=== PATIENT | female | born 1955 | race Caucasian/White ===

== ENCOUNTER → 2017-06-03 | Outpatient (CLI) | payer OTHER ==
[2017-06-03 08:26] LABS: ABSOLUTE EOSINOPHILS # (AUTO) 0.2 10^3/uL (0.0-0.6); ABSOLUTE LYMPHOCYTES (AUTO) 3.3 10^3/uL (0.5-4.7); ABSOLUTE MONOCYTES (AUTO) 0.6 10^3/uL (0.1-1.4); ABSOLUTE NEUT (AUTO) 4.3 10^3/uL (1.7-8.2); BASOPHILS % (AUTO) 0.6 % (0-2); HEMATOCRIT 43.3 % (36.0-47.0); HEMOGLOBIN 14.4 g/dL (12.0-15.5); HGB HCT DIFFERENCE -0.1; LYMPHOCYTES % (AUTO) 39.5 % (13-45); MEAN CORPUSCULAR HEMOGLOBIN 31.5 pg (27.0-33.4); MEAN CORPUSCULAR HGB CONC 33.2 g/dL (32.0-36.0); MEAN CORPUSCULAR VOLUME 95 fl (80-97); MONOCYTES % (AUTO) 6.7 % (3-13); RED BLOOD COUNT 4.56 10^6/uL (3.72-5.28); RED CELL DISTRIBUTION WIDTH 14.2 % (11.5-14.0); SEGMENTED NEUTROPHILS % (AUTO) 51.2 % (42-78); WHITE BLOOD COUNT 8.4 10^3/uL (4.0-10.5)
[2017-06-03 08:55] LABS: ALANINE AMINOTRANSFERASE 25 U/L (9-52); ALBUMIN 3.9 g/dL (3.5-5.0); ALKALINE PHOSPHATASE 86 U/L (38-126); ANION GAP 8 (5-19); ASPARTATE AMINO TRANSFERASE 21 U/L (14-36); BILIRUBIN,DIRECT 0.3 mg/dL (0.0-0.4); BILIRUBIN,TOTAL 0.5 mg/dL (0.2-1.3); BLOOD UREA NITROGEN 12 mg/dL (7-20); CALCIUM 9.3 mg/dL (8.4-10.2); CARBON DIOXIDE 27 mmol/L (22-30); CHLORIDE 107 mmol/L (98-107); CHOLESTEROL 256.58 mg/dL (0-200); CREATININE RESULT 0.83 mg/dL (0.52-1.25); Direct HDL 39 mg/dL (>40); GLUCOSE 91 mg/dL (75-110); POTASSIUM 4.2 mmol/L (3.6-5.0); SODIUM 142.3 mmol/L (137-145); TOTAL PROTEIN 7.1 g/dL (6.3-8.2); TRIGLYCERIDES 186 mg/dL (<150)
[2017-06-03 09:06] LABS: DIRECT LDL 183 mg/dL (<100)
[2017-06-03 09:09] LABS: VLDL CHOLESTEROL 37.2 mg/dL (10-31)
== END ==
LOC: CCC 07:33
DX: E78.4 Other hyperlipidemia (principal); I10 Essential (primary) hypertension
CPT/HCPCS: 36415; 80053; 80061; 82306; 83036; 84443; 85025

== ENCOUNTER → 2018-01-09 | Outpatient (CLI) | payer OTHER ==
--- NOTE | 2018-01-09 10:56 | RADIOLOGY REPORT (SQ) ---
EXAM DESCRIPTION: CHEST PA/LAT COMPLETED DATE/TIME: 01/09/2018 9:56 am REASON FOR STUDY: DYSPNEA (R06.00) COMPARISON: None. EXAM PARAMETERS: NUMBER OF VIEWS: two views TECHNIQUE: Digital Frontal and Lateral radiographic views of the chest acquired. RADIATION DOSE: NA LIMITATIONS: none FINDINGS: LUNGS AND PLEURA: Patchy lingular airspace disease, worrisome for early or developing infi ltrate. No pleural effusion. No pneumothorax. No worrisome pulmonary nodules. MEDIASTINUM AND HILAR STRUCTURES: No masses or contour abnormalities. HEART AND VASCULAR STRUCTURES: Heart normal size. No evidence for failure. BONES: No acute findings. HARDWARE: None in the chest. OTHER: No other significant finding. IMPRESSION: Patchy lingular airspace disease worrisome for early or developing pneumonia TECHNICAL DOCUMENTATION: JOB ID: [id number] [employer]- All Rights Reserved Reading location - IP/workstation name: [email or web address]
== END ==
LOC: RAD 09:38
DX: R06.00 Dyspnea, unspecified (principal); J45.909 Unspecified asthma, uncomplicated
CPT/HCPCS: 71046

== ENCOUNTER → 2018-01-20 | Outpatient (CLI) | payer OTHER ==
--- NOTE | 2018-01-20 13:31 | RADIOLOGY REPORT (SQ) ---
EXAM DESCRIPTION: CHEST PA/LATERAL COMPLETED DATE/TIME: 01/20/2018 11:40 am REASON FOR STUDY: DYSPNEA COMPARISON: 01/09/2018 EXAM PARAMETERS: NUMBER OF VIEWS: two views TECHNIQUE: Digital Frontal and Lateral radiographic views of the chest acquired. RADIATION DOSE: NA LIMITATIONS: none FINDINGS: LUNGS AND PLEURA: There appears to be a small residual infiltrate in the lingula. There d oes appear to be improvement since the earlier study. MEDIASTINUM AND HILAR STRUCTURES: No masses or contour abnormalities. HEART AND VASCULAR STRUCTURES: Heart normal size. No evidence for failure. BONES: No acute findings. HARDWARE: None in the chest. OTHER: No other significant finding. IMPRESSION: Improved lingular infiltrate with small residual. TECHNICAL DOCUMENTATION: JOB ID: [id number] [employer]- All Rights Reserved Reading location - IP/workstation name: [email or web address]
== END ==
LOC: OD 11:25
DX: R06.00 Dyspnea, unspecified (principal)
CPT/HCPCS: 71046

== ENCOUNTER → 2018-03-29 | Outpatient (CLI) | payer OTHER ==
--- NOTE | 2018-03-29 16:26 | RADIOLOGY REPORT (SQ) ---
EXAM DESCRIPTION: CHEST 2 VIEWS COMPLETED DATE/TIME: 03/29/2018 3:40 pm REASON FOR STUDY: R06.00 DYSPNEA, UNSPECIFIED COMPARISON: 01/20/2018. EXAM PARAMETERS: NUMBER OF VIEWS: two views TECHNIQUE: Digital Frontal and Lateral radiographic views of the chest acquired. RADIATION DOSE: NA LIMITATIONS: none FINDINGS: LUNGS AND PLEURA: No opacities, masses or pneumothorax. No pleural effusion. MEDIASTINUM AND HILAR STRUCTURES: No masses or contour abnormalities. HEART AND VASCULAR STRUCTURES: Heart normal size. No evidence for failure. BONES: No acute findings. HARDWARE: None in the chest. OTHER: No other significant finding. IMPRESSION: NO ACUTE RADIOGRAPHIC FINDING IN THE CHEST. TECHNICAL DOCUMENTATION: JOB ID: [id number] [employer]- All Rights Reserved Reading location - IP/workstation name: [email or web address]
== END ==
LOC: RAD 15:25
DX: R06.00 Dyspnea, unspecified (principal)
CPT/HCPCS: 71046

== ENCOUNTER → 2018-05-04 | Outpatient (CLI) | payer OTHER ==
--- NOTE | 2018-05-04 09:48 | RADIOLOGY REPORT (SQ) ---
EXAM DESCRIPTION: BARIUM SWALLOW ESOPHAGUS COMPLETED DATE/TIME: 05/04/2018 9:29 am REASON FOR STUDY: COUGH/NOCTURNAL COUGHING ON MED FOR REFLUX R05 COUGH COMPARISON: Upper GI series 05/12/2016 Thyroid ultrasound 06/18/2016 CT soft tissue neck 07/26/2016 Two-view chest 03/29/2018 TECHNIQUE: Under fluoroscopic guidance, patient ingested effervescent granules followed by thick and thin barium. Fluoroscopic spot images and routine radiographic images acquired and stored on PACS. 12 MM BARIUM TABLET GIVEN: Yes No significant delay in passage. LIMITATIONS: None. FLUOROSCOPY TIME: FLUORO TIME: 1 minutes 36 seconds 9 series of digital radiographic images saved to PACS. FINDINGS: NEUROMUSCULAR COORDINATION OF SWALLOW: Normal. No aspiration. ESOPHAGEAL MOTILITY: Normal peristalsis. No esophageal spasm. ESOPHAGEAL MUCOSA: Normal mucosa without masses or ulceration. GASTRO-ESOPHAGEAL JUNCTION: There is a small sliding hiatal hernia. Unprovoked gastroesophageal refl ux to the mid 3rd of the esophagus NON-GI TRACT STRUCTURES: No significant finding. OTHER: No other significant finding. IMPRESSION: Small sliding hiatal hernia. Unprovoked gastroesophageal reflux. COMMENT: Quality ID [id number]: Final reports for procedures using fluoroscopy that document radiation exp osure indices, or exposure time and number of fluorographic images (if radiation exposure indices are not available) TECHNICAL DOCUMENTATION: JOB ID: [id number] [employer]- All Rights Reserved Reading location - IP/workstation name: [email or web address]
== END ==
LOC: RAD 08:52
PROVIDERS: ATTEND Internal Medicine
DX: R05 Cough (principal)
CPT/HCPCS: 74220

== ENCOUNTER → 2018-05-30 | Outpatient (CLI) | payer OTHER ==
[2018-06-01 21:35] LABS: M001-IGE PENICILLIUM CHRYSOGEN <0.10 kU/L (Class 0); M002-IGE CLADOSPORIUM HERBARUM <0.10 kU/L (Class 0); M003-IGE ASPERGILLUS FUMIGATUS <0.10 kU/L (Class 0); M004-IGE MUCOR RACEMOSUS <0.10 kU/L (Class 0); M005-IGE CANDIDA ALBICANS <0.10 kU/L (Class 0); M006-IGE ALTERNARIA ALTERNATA <0.10 kU/L (Class 0); M009-IGE FUSARIUM PROLIFERATUM <0.10 kU/L (Class 0); M012-IGE AUREOBASIDI PULLULANS <0.10 kU/L (Class 0); M013-IGE PHOMA BETAE <0.10 kU/L (Class 0); M014-IGE EPICOCCUM PURPURASCEN <0.10 kU/L (Class 0)
[2018-06-02 03:26] LABS: M010-IGE STEMPHYLIUM HERBARUM <0.10 kU/L (Class 0)
== END ==
LOC: CCC 12:55
DX: R05 Cough (principal)
CPT/HCPCS: 36415; 86003

== ENCOUNTER 2018-06-02 09:56 | Inpatient (IN) | payer OTHER ==
[2018-06-02] MEDS ORDERED: METHYLPREDNISOLONE INJ 125 MG/2 ML SDV IV ONE (10:14)
[2018-06-02] MEDS ORDERED: IPRATROPIUM/ALBUTEROL 0.5-2.5 MG/3 ML AMPUL NEB ONE (10:14)
[2018-06-02] MEDS ORDERED: ALBUTEROL SULFATE 0.083% NEB 2.5 MG/3 ML AMPUL NEB ONE ×2 (10:14→10:25)
--- NOTE | 2018-06-02 10:15 | ER Document Report ---
ED Medical Screen (RME) - General Chief Complaint: Breathing Difficulty Stated Complaint: BREATHING PROBLEMS Time Seen by Provider: 06/02/18 10:05 Mode of Arrival: Wheelchair Information source: Patient TRAVEL OUTSIDE OF THE [place] IN LAST 30 DAYS: No - HPI Patient complains to provider of: Difficulty breathing - Related Data Allergies/Adverse Reactions: No Known Allergies Allergy (Unverified 06/02/18 09:59) Physical Exam - Vital signs Vitals: Temp Pulse Resp BP Pulse Ox 98.2 F 75 22 H 148/83 H 89 L 06/02/18 10:07 06/02/18 10:07 06/02/18 10:07 06/02/18 10:07 06/02/18 10:07 Course - Vital Signs Vital signs: Temp Pulse Resp BP Pulse Ox 98.2 F 75 22 H 148/83 H 89 L 06/02/18 10:07 06/02/18 10:07 06/02/18 10:07 06/02/18 10:07 06/02/18 10:07 Doctor's Discharge - Discharge Referrals: [facility] [Primary Care Provider] - Follow up as needed
[2018-06-02] MEDS: MAGNESIUM SULFATE/D5W 1 GM/100 ML RTUPB IV SCH ×2 (10:20→10:44)
--- NOTE | 2018-06-02 10:28 | ER Document Report ---
ED General - General Chief Complaint: Breathing Difficulty Stated Complaint: BREATHING PROBLEMS Time Seen by Provider: 06/02/18 10:05 Mode of Arrival: Wheelchair Notes: 63-year-old female smoker with hyperlipidemia presents emergency department complaining of a two-month history of minimally productive cough that has been gettting progressively worse. Patient states she has taken multiple doses of antibiotics, had multiple chest x-rays and use multiple inhalers without any relief. States that she has a constant wheeze or rattle in her chest associated with pain in her chest from coughing. Denies fevers, chills, nausea or vomiting. States that she is decreasing her smoking. TRAVEL OUTSIDE OF THE [place] IN LAST 30 DAYS: No - Related Data Allergies/Adverse Reactions: No Known Allergies Allergy (Unverified 06/02/18 09:59) Past Medical History - General Information source: Patient - Social History Smoking Status: Current Every Day Smoker Cigarette use (# per day): Yes - 4-5 Chew tobacco use (# tins/day): No Frequency of alcohol use: None Drug Abuse: None Lives with: Spouse/Significant other Family History: COPD - Past Medical History Cardiac Medical History: Reports: Hx Hypercholesterolemia Review of Systems - Review of Systems Constitutional: See HPI, Weakness. denies: Diaphoresis, Fever EENT: No symptoms reported Cardiovascular: See HPI, Chest pain, Dyspnea Respiratory: See HPI, Cough, Short of breath -: Yes All other systems reviewed and negative Physical Exam - Vital signs Vitals: Temp Pulse Resp BP Pulse Ox 98.2 F 75 22 H 148/83 H 89 L 06/02/18 10:07 06/02/18 10:07 06/02/18 10:07 06/02/18 10:07 06/02/18 10:07 Interpretation: Hypoxic, Tachypneic - Notes Notes: GENERAL: Alert, interacts well. Appears uncomfortable. HEAD: Normocephalic, atraumatic EYES: Pupils equal, round and reactive to light, extraocular movements intact. ENT: Oral mucosa moist, tongue midline. NECK: Full range of motion, supple, trachea midline. LUNGS: Tachypnea, wheezing, appear short of breath, no cyanosis. HEART: Regular rate and rhythm, no murmurs, gallops, rubs. ABDOMEN: Soft, nontender, nondistended, bowel sounds present in all 4 quadrants. EXTREMITIES: Moves all 4 extremities spontaneously, no edema, radial and dorsalis pedis pulses 2/4 bilaterally. No cyanosis. NEUROLOGICAL: Alert and oriented x3, normal speech. PSYCH: Normal mood, normal affect. SKIN: Warm, Dry, normal turgor, no rashes or lesions noted. Course - Re-evaluation Re-evalutation: 06/02/18 15:07 CBC shows slight leukocytosis 11.0, there is an eosinophilia, venous blood gas grossly unremarkable, chemistries unremarkable, CK and CK-MB are both somewhat elevated but troponin is normal, proBNP is normal, urinalysis unremarkable, chest x-ray does not show any acute process. Patient has not had any relief in her shortness of breath with steroids or breathing treatments, CT angiogram of the chest shows groundglass opacities in the bilateral upper lobes as well as atelectatic changes in the right middle lobe and bilateral lower lobes. There is no evidence of pulmonary embolism. I am concerned for possible infection versus hemorrhage versus pulmonary edema. Pulmonary edema is felt to be unlikely because the proBNP is low. Patient will be discussed with Dr. Mirza for possible admission given her continued shortness of breath, wheezing and hypoxia. 06/02/18 15:08 Dr. Roxana campos accept the patient to his service, agrees with concern for multifocal pneumonia versus interstitial lung disease, agrees with patient placing on the IMCU. - Vital Signs Vital signs: Temp Pulse Resp BP Pulse Ox 98.2 F 75 17 118/51 L 94 06/02/18 10:07 06/02/18 10:07 06/02/18 14:00 06/02/18 11:01 06/02/18 14:00 - Laboratory Result Diagrams: 06/02/18 10:31 06/02/18 10:31 Laboratory results interpreted by me: 06/02/18 06/02/18 06/02/18 10:31 10:31 10:31 WBC 11.0 H Eosinophils % 6.9 H Absolute Eosinophils 0.8 H BUN 5 L Creatine Kinase 233 H CK-MB (CK-2) 4.80 H Discharge - Discharge Clinical Impression: Acute respiratory failure with hypoxia, Multifocal pneumonia Condition: Fair Disposition: ADMITTED INPATIENT Admitting Provider: Hospitalist - [facility] Admitted: IMCU Referrals: [facility] [NO LOCAL MD] - Follow up as needed
[2018-06-02 10:47] LABS: ABSOLUTE BASOPHILS # (AUTO) 0.1 10^3/uL (0.0-0.2); ABSOLUTE EOSINOPHILS # (AUTO) 0.8 10^3/uL (0.0-0.6); ABSOLUTE LYMPHOCYTES (AUTO) 2.1 10^3/uL (0.5-4.7); ABSOLUTE MONOCYTES (AUTO) 0.7 10^3/uL (0.1-1.4); ABSOLUTE NEUT (AUTO) 7.4 10^3/uL (1.7-8.2); BASOPHILS % (AUTO) 0.6 % (0-2); EOSINOPHILS % (AUTO) 6.9 % (0-6); HEMATOCRIT 43.8 % (36.0-47.0); HEMOGLOBIN 14.7 g/dL (12.0-15.5); LYMPHOCYTES % (AUTO) 19.1 % (13-45); MEAN CORPUSCULAR HEMOGLOBIN 31.9 pg (27.0-33.4); MEAN CORPUSCULAR HGB CONC 33.5 g/dL (32.0-36.0); MEAN CORPUSCULAR VOLUME 95 fl (80-97); MONOCYTES % (AUTO) 6.5 % (3-13); PLATELET COUNT 235 10^3/uL (150-450); RED CELL DISTRIBUTION WIDTH 13.8 % (11.5-14.0); SEGMENTED NEUTROPHILS % (AUTO) 66.9 % (42-78); TOTAL CELLS COUNTED % (AUTO) 100 %
[2018-06-02 11:05] LABS: VENOUS BLOOD BASE EXCESS 2.5 mmol/L; VENOUS BLOOD HCO3 28.2 mmol/L (20-32); VENOUS BLOOD PCO2 47.7 mmHg (35-63); VENOUS BLOOD PH 7.39 (7.30-7.42)
[2018-06-02 11:06] LABS: ALANINE AMINOTRANSFERASE 23 U/L (9-52); ALKALINE PHOSPHATASE 126 U/L (38-126); ANION GAP 10 (5-19); ASPARTATE AMINO TRANSFERASE 29 U/L (14-36); BILIRUBIN,DIRECT 0.3 mg/dL (0.0-0.4); BILIRUBIN,TOTAL 0.7 mg/dL (0.2-1.3); BLOOD UREA NITROGEN 5 mg/dL (7-20); CALCIUM 9.4 mg/dL (8.4-10.2); CARBON DIOXIDE 28 mmol/L (22-30); CHLORIDE 106 mmol/L (98-107); CREATINE KINASE 233 U/L (30-135); GLUCOSE 90 mg/dL (75-110); POTASSIUM 4.6 mmol/L (3.6-5.0); SODIUM 144.1 mmol/L (137-145); TOTAL PROTEIN 7.4 g/dL (6.3-8.2)
[2018-06-02 11:13] LABS: APPEARANCE,URINE CLEAR; BILIRUBIN,URINE NEGATIVE (NEGATIVE); COLOR,URINE STRAW; GLUCOSE, URINE NEGATIVE (NEGATIVE); KETONES,URINE NEGATIVE (NEGATIVE); LEUKOCYTE ESTERASE,URINE NEGATIVE (NEGATIVE); NITRITE,URINE NEGATIVE (NEGATIVE); PROTEIN,URINE NEGATIVE (NEGATIVE); URINE SPECIFIC GRAVITY 1.002; UROBILINOGEN,URINE NEGATIVE mg/dL (<2.0)
[2018-06-02 11:18] LABS: NT PRO BNP 79 pg/mL (5-900)
[2018-06-02] MEDS ORDERED: KETOROLAC TROMETHAMINE INJ/PF 30 MG/1 ML SDV IV ONE (11:18)
[2018-06-02 11:19] LABS: TROPONIN I < 0.012 ng/mL
[2018-06-02] MEDS ORDERED: LORAZEPAM 0.5 MG TABLET PO ONE (11:47)
--- NOTE | 2018-06-02 12:51 | RADIOLOGY REPORT (SQ) ---
EXAM DESCRIPTION: CHEST 2 VIEWS COMPLETED DATE/TIME: 06/02/2018 12:10 pm REASON FOR STUDY: sob COMPARISON: Two-view chest 03/29/2018, 01/20/2018, 01/09/2018 EXAM PARAMETERS: NUMBER OF VIEWS: two views TECHNIQUE: Digital Frontal and Lateral radiographic views of the chest acquired. RADIATION DOSE: NA LIMITATIONS: none FINDINGS: LUNGS AND PLEURA: No opacities, masses or pneumothorax. No pleural effusion. MEDIASTINUM AND HILAR STRUCTURES: No masses or contour abnormalities. HEART AND VASCULAR STRUCTURES: Heart normal size. No evidence for failure. BONES: No acute findings. HARDWARE: None in the chest. OTHER: No other significant finding. IMPRESSION: NO ACUTE RADIOGRAPHIC FINDING IN THE CHEST. TECHNICAL DOCUMENTATION: JOB ID: [id number] [employer]- All Rights Reserved Reading location - IP/workstation name: [email or web address]
--- NOTE | 2018-06-02 14:55 | RADIOLOGY REPORT (SQ) ---
EXAM DESCRIPTION: CTA CHEST COMPLETED DATE/TIME: 06/02/2018 2:30 pm REASON FOR STUDY: persistent wheeze, hypoxia COMPARISON: Chest x-ray 06/02/2018. TECHNIQUE: CT scan of the chest performed using helical scanning technique with dynamic intravenous contrast injection. Images reviewed with lung, soft tissue and bone windows. Reconstructed coronal and sagittal MPR images reviewed. Additional 3 dimensional post-processing performed to develop Maximal Intensity Projection images (AZ P). All images stored on PACS. All CT scanners at this facility use dose modulation, iterative reconstruction, and/or weight based d osing when appropriate to reduce radiation dose to as low as reasonably achievable (ALARA). [facility]: Dose Right [facility]: CareDose [facility]: Dose Right [facility]: Teradose 4D [facility]: [employer] CONTRAST TYPE AND DOSE: contrast/concentration: Isovue 370.00 mg/ml; Total Contrast Delivered: 81.0 ml; Total Saline Delivered: 80.0 ml Contrast bolus optimized for the pulmonary arteries. Not diagnostic for the aorta. RENAL FUNCTION: Creatinine 0.71 RADIATION DOSE: CT Rad equipment meets quality standard of care and radiation dose reduction techniq ues were employed. CTDIvol: 31.7 - 33.1 mGy. DLP: 1310 mGy-cm. . LIMITATIONS: There is motion artifact. FINDINGS: LUNGS AND PLEURA: Calcified granuloma noted at the posterior right upper lobe. There are bilateral patchy ground-glass opacities. Atelectatic changes are seen at the right middle lobe and b ilateral lower lobes. No pleural effusion or pneumothorax. AORTA AND GREAT VESSELS: No thoracic aortic aneurysm. Contrast bolus not optimized for the aorta. HEART: No pericardial effusion. No significant coronary artery calcifications. PULMONARY ARTERIES: No obvious emboli visualized in the main pulmonary arteries or the visualized seg mental branches. HILAR AND MEDIASTINAL STRUCTURES: Mildly enlarged right hilar lymph node measuring 1.4 cm in short ax is. Prevascular lymph node measuring 11 mm in short axis. Left hilar lymph node measuring 11 mm in short axis. HARDWARE: None in the chest. UPPER ABDOMEN: No significant findings. Limited exam. THYROID AND OTHER SOFT TISSUES: The visualized thyroid gland is unremarkable. BONES: Multilevel degenerative changes at the spine. 3D MIPS: Confirm above findings. IMPRESSION: 1. Study degraded by motion artifact. No definite CT evidence for pulmonary emboli. If clinical concern persists, evaluation with ventilation-perfusion scan or repeat CT angiogram chest c an be obtained when the patient will be able to cooperate with positioning. 2. Bilateral patchy ground-glass opacities, may be secondary to multifocal pneumonia, pulmonary edema or hemorrhage. Mild bibasilar atelectasis. 3. Mild mediastinal and hilar adenopathy. COMMENT: Quality ID # [id number]: Final reports with documentation of one or more dose reduction techniques (e.g., Automated exposure control, adjustment of the mA and/or kV according to patient size, use of iterative reconstruction technique) TECHNICAL DOCUMENTATION: JOB ID: [id number] [employer]- All Rights Reserved Reading location - IP/workstation name: [email or web address]
[2018-06-02] MEDS ORDERED: CEFEPIME 1 GM/D5W RTU 1 GM/50 ML RTUPB IV ONE (15:00)
[2018-06-02] MEDS ORDERED: LEVOFLOXACIN 750 MG/D5W RTU 750 MG/150 ML RTUPB IV ONE (15:00)
[2018-06-02 15:25] LABS: ARTERIAL BLOOD BASE EXCESS -0.8 mmol/L; ARTERIAL BLOOD FIO2 4L; ARTERIAL BLOOD H2CO3 1.21 mmol/L (1.05-1.35); ARTERIAL BLOOD O2 SATURATION 94.5 % (94-98); ARTERIAL BLOOD PCO2 40.3 mmHg (35-45); ARTERIAL BLOOD PH 7.39 (7.35-7.45); ARTERIAL BLOOD PO2 72.5 mmHg (80-100); ARTERIAL BLOOD TOTAL CO2 25.3 mmol/L (21-25)
[2018-06-02] MEDS ORDERED: NICOTINE 14 MG/24 HR PATCH.TD24 TD SCH (20:00)
[2018-06-02] MEDS ORDERED: NICOTINE 14 MG/24 HR PATCH.TD24 TD ONE (20:00)
[2018-06-03] MEDS ORDERED: AZITHROMYCIN INJ 500 MG VIAL IV PRN (00:23)
[2018-06-03] MEDS ORDERED: IPRATROPIUM/ALBUTEROL 0.5-2.5 MG/3 ML AMPUL NEB PRN (00:26)
[2018-06-03] MEDS ORDERED: ESCITALOPRAM OXALATE 10 MG TABLET PO ONE (00:45)
[2018-06-03] MEDS ORDERED: AZITHROMYCIN 500 MG in DEXTROSE 5%-WATER 250 ML IV ONE (01:00)
[2018-06-03] MEDS: IBUPROFEN 400 MG TABLET PO PRN ×2 (01:03→09:49)
[2018-06-03] MEDS: IPRATROPIUM/ALBUTEROL 0.5-2.5 MG/3 ML AMPUL NEB SCH ×4 (01:13→20:32)
[2018-06-03] MEDS ORDERED: AZITHROMYCIN INJ 500 MG VIAL IV ONE (01:15)
[2018-06-03] MEDS ORDERED: CEFTRIAXONE INJ 1000 MG VIAL ONE (01:16)
[2018-06-03] MEDS ORDERED: CEFTRIAXONE 2 GM/D5W RTU 2 GM/50 ML RTUPB IV ONE (01:30)
[2018-06-03] MEDS ORDERED: METHYLPREDNISOLONE INJ 40 MG/1 ML SDV IV SCH (07:45)
[2018-06-03] MEDS: ENOXAPARIN SODIUM INJ 40 MG/0.4 ML DISP.SYRIN SUBCUT SCH (09:40)
[2018-06-03] MEDS: GUAIFENESIN 600 MG TABLET.SA PO SCH ×2 (09:42→21:05)
[2018-06-03] MEDS: LANSOPRAZOLE 15 MG TAB.RAP.DR PO SCH (09:43)
[2018-06-03] MEDS: BENZONATATE 100 MG CAPSULE PO SCH ×2 (14:33→21:05)
[2018-06-03] MEDS: METHYLPREDNISOLONE INJ 125 MG/2 ML SDV IV SCH ×2 (14:35→21:04)
--- NOTE | 2018-06-03 15:51 | PDOC PROGRESS REPORT ---
Subjective Progress Note for:: 06/03/18 Subjective:: This is a 63 years old female patient presented with 2 months history of dry hacking cough, shortness of breath and wheezing. Her CT scan of the chest reported as bilateral patchy consolidation of groundglass appearance suspicious for multifocal pneumonia versus pulmonary edema. Patient has been started on Solu-Medrol, bronchodilator, supplemental oxygen, Zithromax and ceftriaxone. Reason For Visit: PNEUMONIA Physical Exam Vital Signs: Temp Pulse Resp BP Pulse Ox 98.0 F 93 18 126/77 H 96 06/03/18 12:03 06/03/18 13:00 06/03/18 13:00 06/03/18 12:03 06/03/18 12:03 Intake & Output 06/02/18 06/03/18 06/04/18 06:59 06:59 06:59 Intake Total 650 615 Output Total 500 Balance 150 615 Weight 107.6 kg Results Impressions: Chest X-Ray 06/02/18 10:13 IMPRESSION: NO ACUTE RADIOGRAPHIC FINDING IN THE CHEST. Chest/Abdomen CTA 06/02/18 13:16 IMPRESSION: 1. Study degraded by motion artifact. No definite CT evidence for pulmonary emboli. If clinical concern persists, evaluation with ventilation- perfusion scan or repeat CT angiogram chest can be obtained when the patient will be able to cooperate with positioning. 2. Bilateral patchy ground-glass opacities, may be secondary to multifocal pneumonia, pulmonary edema or hemorrhage. Mild bibasilar atelectasis. 3. Mild mediastinal and hilar adenopathy. Assessment & Plan - Diagnosis (1) Acute respiratory failure with hypoxia Is this a current diagnosis for this admission?: Yes Plan: 02 saturation was 89% at the ER. Patient has been on supplemental oxygen and as needed BiPAP. (2) Suspected pneumonia Is this a current diagnosis for this admission?: Yes Plan: CT scan of the chest reported as multifocal pneumonia versus pulmonary edema. Patient has been started empirically on Zithromax and ceftriaxone. (3) Reactive airway disease Qualifiers: Asthma severity: moderate Is this a current diagnosis for this admission?: Yes Plan: Clinically patient has audible and diffuse bilateral wheezing. Reactive airways consider based on her clinical finding. She has been on bronchodilator, Solu-Medrol and supplemental oxygen. (4) Hyperlipidemia Qualifiers: Hyperlipidemia type: unspecified Is this a current diagnosis for this admission?: Yes Plan: Continue her home medication. (5) Morbid obesity Is this a current diagnosis for this admission?: Yes Plan: Lifestyle modification advised.
[2018-06-03] MEDS: IPRATROPIUM/ALBUTEROL 0.5-2.5 MG/3 ML AMPUL NEB PRN (16:36)
[2018-06-03] MEDS ORDERED: DOXYCYCLINE HYCLATE INJ 100 MG VIAL IV PRN (20:09)
[2018-06-03] MEDS ORDERED: DOXYCYCLINE HYCLATE INJ 100 MG VIAL ONE (20:45)
[2018-06-03] MEDS: CEFTRIAXONE 2 GM/D5W RTU 2 GM/50 ML RTUPB IV SCH (21:03)
[2018-06-03] MEDS: CHOLECALCIFEROL (D3) 1,000 UNIT TABLET PO SCH (21:04)
[2018-06-03] MEDS: CALCIUM CARBONATE 250 MG/VITAMIN D3 125 UNIT TABLET PO SCH (21:04)
[2018-06-03] MEDS: ESCITALOPRAM OXALATE 10 MG TABLET PO SCH (21:05)
[2018-06-03] MEDS: ATORVASTATIN CALCIUM 40 MG TABLET PO SCH (21:05)
[2018-06-03] MEDS ORDERED: [UNRECOGNIZED DRUG - OTHER] PO SCH (22:00)
[2018-06-03] MEDS ORDERED: AZITHROMYCIN 500 MG in DEXTROSE 5%-WATER 250 ML IV SCH (22:00)
[2018-06-03] MEDS ORDERED: D3 PO SCH (22:00)
[2018-06-03] MEDS ORDERED: CALCIUM CARB PO SCH (22:00)
[2018-06-03] MEDS ORDERED: MAGNESIUM OXID PO SCH (22:00)
[2018-06-03] MEDS: DOXYCYCLINE HYCLATE 100 MG in DEXTROSE 5%-WATER 250 ML IV SCH (22:03)
[2018-06-04] MEDS: IPRATROPIUM/ALBUTEROL 0.5-2.5 MG/3 ML AMPUL NEB PRN (00:47)
[2018-06-04] MEDS: NORMAL SALINE 1000 ML 1,000 ML IV PRN ×2 (02:35→17:51)
[2018-06-04] MEDS: IPRATROPIUM/ALBUTEROL 0.5-2.5 MG/3 ML AMPUL NEB SCH ×4 (02:51→20:05)
[2018-06-04 05:05] LABS: ALANINE AMINOTRANSFERASE 26 U/L (9-52); ALBUMIN 3.5 g/dL (3.5-5.0); ALKALINE PHOSPHATASE 94 U/L (38-126); ANION GAP 10 (5-19); ASPARTATE AMINO TRANSFERASE 38 U/L (14-36); BILIRUBIN,DIRECT 0.2 mg/dL (0.0-0.4); BILIRUBIN,TOTAL 0.2 mg/dL (0.2-1.3); BLOOD UREA NITROGEN 11 mg/dL (7-20); CALCIUM 8.5 mg/dL (8.4-10.2); CARBON DIOXIDE 25 mmol/L (22-30); CHLORIDE 110 mmol/L (98-107); GLUCOSE 169 mg/dL (75-110); POTASSIUM 4.1 mmol/L (3.6-5.0); SODIUM 144.9 mmol/L (137-145); TOTAL PROTEIN 6.5 g/dL (6.3-8.2)
[2018-06-04 05:11] LABS: HEMOGLOBIN 12.8 g/dL (12.0-15.5); MEAN CORPUSCULAR HEMOGLOBIN 32.2 pg (27.0-33.4); MEAN CORPUSCULAR HGB CONC 33.6 g/dL (32.0-36.0); MEAN CORPUSCULAR VOLUME 96 fl (80-97); PLATELET COUNT 242 10^3/uL (150-450); RED BLOOD COUNT 3.96 10^6/uL (3.72-5.28); WHITE BLOOD COUNT 21.7 10^3/uL (4.0-10.5)
[2018-06-04] MEDS: METHYLPREDNISOLONE INJ 125 MG/2 ML SDV IV SCH ×3 (05:24→22:08)
[2018-06-04] MEDS: BENZONATATE 100 MG CAPSULE PO SCH ×3 (05:24→22:09)
[2018-06-04 05:33] LABS: ABSOLUTE LYMPHOCYTES# (MANUAL) 0.7 10^3/uL (0.5-4.7); ABSOLUTE MONOCYTES # (MANUAL) 0.2 10^3/uL (0.1-1.4); ABSOLUTE NEUTROPHILS# (MANUAL) 20.8 10^3/uL (1.7-8.2); BASOPHILS % (MANUAL) 0 % (0-2); EOSINOPHILS % (MANUAL) 0 % (0-6); LYMPHOCYTES % (MANUAL) 3 % (13-45); MONOCYTES % (MANUAL) 1 % (3-13); SEGMENTED NEUTROPHILS % (MAN) 96 % (42-78); TOTAL CELLS COUNTED 100
[2018-06-04 05:34] LABS: PLATELET COMMENT ADEQUATE; RBC MORPHOLOGY COMMENT NORMO-CYTIC/CHROMIC
[2018-06-04] MEDS: ENOXAPARIN SODIUM INJ 40 MG/0.4 ML DISP.SYRIN SUBCUT SCH (10:03)
[2018-06-04] MEDS: GUAIFENESIN 600 MG TABLET.SA PO SCH ×2 (10:04→22:10)
[2018-06-04] MEDS: LANSOPRAZOLE 15 MG TAB.RAP.DR PO SCH (10:04)
[2018-06-04] MEDS: NICOTINE 14 MG/24 HR PATCH.TD24 TD SCH (10:04)
[2018-06-04] MEDS: DOXYCYCLINE HYCLATE 100 MG in DEXTROSE 5%-WATER 250 ML IV SCH ×2 (10:09→22:10)
[2018-06-04] MEDS: GUAIFENESIN/CODEINE PHOS 100-10 MG/ 5 ML UDC PO PRN (13:24)
--- NOTE | 2018-06-04 17:13 | PDOC PROGRESS REPORT ---
Subjective Progress Note for:: 06/04/18 Subjective:: I seen patient resting in bed. She claims her condition is the same even though she has a restful night. She is being treated for reactive airway disease. And her CT scan shows bilateral patchy groundglass appearance suspicious for multifocal pneumonia versus pulmonary edema versus pulmonary hemorrhage. Patient is being treated with antibiotics empirically for pneumonia. She is also on bronchodilator, supplemental oxygen and high-dose Solu-Medrol. Reason For Visit: PNEUMONIA Physical Exam Vital Signs: Temp Pulse Resp BP Pulse Ox 98.1 F 96 15 145/76 H 94 06/04/18 15:52 06/04/18 15:52 06/04/18 15:52 06/04/18 15:52 06/04/18 15:52 Intake & Output 06/03/18 06/04/18 06/05/18 06:59 06:59 06:59 Intake Total 650 4282 150 Output Total 500 Balance 150 4282 150 Weight 107.6 kg 107.1 kg Results Laboratory Results: 06/04/18 04:36 06/04/18 04:36 06/04/18 06/04/18 06/04/18 04:36 04:36 04:36 WBC 21.7 H RBC 3.96 Hgb 12.8 Hct 38.0 MCV 96 MCH 32.2 MCHC 33.6 RDW 14.0 Plt Count 242 Seg Neutrophils % Not Reportable Lymphocytes % Not Reportable Monocytes % Not Reportable Eosinophils % Not Reportable Basophils % Not Reportable Absolute Neutrophils Not Reportable Absolute Lymphocytes Not Reportable Absolute Monocytes Not Reportable Absolute Eosinophils Not Reportable Absolute Basophils Not Reportable Sodium 144.9 Potassium 4.1 Chloride 110 H Carbon Dioxide 25 Anion Gap 10 BUN 11 Creatinine 0.60 Est GFR ( Amer) > 60 Est GFR (Non-Af Amer) > 60 Glucose 169 H Calcium 8.5 Total Bilirubin 0.2 AST 38 H ALT 26 Alkaline Phosphatase 94 Total Protein 6.5 Albumin 3.5 TSH 0.23 L Impressions: Chest X-Ray 06/02/18 10:13 IMPRESSION: NO ACUTE RADIOGRAPHIC FINDING IN THE CHEST. Chest/Abdomen CTA 06/02/18 13:16 IMPRESSION: 1. Study degraded by motion artifact. No definite CT evidence for pulmonary emboli. If clinical concern persists, evaluation with ventilation- perfusion scan or repeat CT angiogram chest can be obtained when the patient will be able to cooperate with positioning. 2. Bilateral patchy ground-glass opacities, may be secondary to multifocal pneumonia, pulmonary edema or hemorrhage. Mild bibasilar atelectasis. 3. Mild mediastinal and hilar adenopathy. Assessment & Plan - Diagnosis (1) Acute respiratory failure with hypoxia Is this a current diagnosis for this admission?: Yes Plan: Her O2 saturation is stable. (2) Suspected pneumonia Is this a current diagnosis for this admission?: Yes Plan: Continue ceftriaxone and Zithromax. (3) Reactive airway disease Qualifiers: Asthma severity: moderate Is this a current diagnosis for this admission?: Yes Plan: Continue Solu-Medrol, bronchodilator and supplemental oxygen. (4) Hyperlipidemia Qualifiers: Hyperlipidemia type: unspecified Is this a current diagnosis for this admission?: Yes Plan: Continue her home medication. (5) Morbid obesity Is this a current diagnosis for this admission?: Yes Plan: Lifestyle modification advised.
[2018-06-04] MEDS: CEFTRIAXONE 2 GM/D5W RTU 2 GM/50 ML RTUPB IV SCH (20:50)
[2018-06-04] MEDS: CHOLECALCIFEROL (D3) 1,000 UNIT TABLET PO SCH (22:09)
[2018-06-04] MEDS: CALCIUM CARBONATE 250 MG/VITAMIN D3 125 UNIT TABLET PO SCH (22:09)
[2018-06-04] MEDS: ESCITALOPRAM OXALATE 10 MG TABLET PO SCH (22:10)
[2018-06-04] MEDS: ATORVASTATIN CALCIUM 40 MG TABLET PO SCH (22:10)
[2018-06-05] MEDS: IPRATROPIUM/ALBUTEROL 0.5-2.5 MG/3 ML AMPUL NEB PRN (00:05)
[2018-06-05] MEDS: IPRATROPIUM/ALBUTEROL 0.5-2.5 MG/3 ML AMPUL NEB SCH ×4 (01:55→20:46)
[2018-06-05] MEDS: METHYLPREDNISOLONE INJ 125 MG/2 ML SDV IV SCH ×3 (05:51→22:15)
[2018-06-05] MEDS: BENZONATATE 100 MG CAPSULE PO SCH ×3 (05:51→22:16)
[2018-06-05] MEDS: GUAIFENESIN 600 MG TABLET.SA PO SCH ×2 (10:31→22:16)
[2018-06-05] MEDS: AMLODIPINE BESYLATE 10 MG TABLET PO SCH (10:31)
[2018-06-05] MEDS: LANSOPRAZOLE 15 MG TAB.RAP.DR PO SCH (10:31)
[2018-06-05] MEDS: NICOTINE 14 MG/24 HR PATCH.TD24 TD SCH (10:33)
[2018-06-05] MEDS: ENOXAPARIN SODIUM INJ 40 MG/0.4 ML DISP.SYRIN SUBCUT SCH (10:36)
[2018-06-05] MEDS: DOXYCYCLINE HYCLATE 100 MG in DEXTROSE 5%-WATER 250 ML IV SCH (10:38)
[2018-06-05] MEDS: GUAIFENESIN/CODEINE PHOS 100-10 MG/ 5 ML UDC PO PRN ×3 (14:10→22:36)
[2018-06-05] MEDS ORDERED: BISACODYL 5 MG TABEC PO PRN (14:19)
[2018-06-05] MEDS ORDERED: BISACODYL 5 MG TABEC PO ONE (14:30)
[2018-06-05] MEDS ORDERED: POLYETHYLENE GLYCOL 3350 POWDER 17 GM/1 PACKET PO ONE (15:00)
[2018-06-05] MEDS: AZITHROMYCIN 250 MG TABLET PO SCH (18:34)
--- NOTE | 2018-06-05 19:46 | PDOC PROGRESS REPORT ---
Subjective Progress Note for:: 06/05/18 Subjective:: Patient has been doing relatively better. Her shortness of breath is relatively subsided. On auscultation the wheezing is improving. Patient requests for physical therapy. Reason For Visit: PNEUMONIA Physical Exam Vital Signs: Temp Pulse Resp BP Pulse Ox 97.9 F 95 18 130/61 H 96 06/05/18 16:03 06/05/18 16:03 06/05/18 16:03 06/05/18 16:03 06/05/18 16:03 Intake & Output 06/04/18 06/05/18 06/06/18 06:59 06:59 06:59 Intake Total 4282 3100 1258 Balance 4282 3100 1258 Weight 107.1 kg Results Laboratory Results: 06/04/18 04:36 06/04/18 04:36 Impressions: Chest X-Ray 06/02/18 10:13 IMPRESSION: NO ACUTE RADIOGRAPHIC FINDING IN THE CHEST. Chest/Abdomen CTA 06/02/18 13:16 IMPRESSION: 1. Study degraded by motion artifact. No definite CT evidence for pulmonary emboli. If clinical concern persists, evaluation with ventilation- perfusion scan or repeat CT angiogram chest can be obtained when the patient will be able to cooperate with positioning. 2. Bilateral patchy ground-glass opacities, may be secondary to multifocal pneumonia, pulmonary edema or hemorrhage. Mild bibasilar atelectasis. 3. Mild mediastinal and hilar adenopathy. Assessment & Plan - Diagnosis (1) Acute respiratory failure with hypoxia Is this a current diagnosis for this admission?: Yes Plan: Continue current regimen (2) Suspected pneumonia Is this a current diagnosis for this admission?: Yes Plan: Continue current regimen. I will request CT scan of the chest check for resolution of the previous findings. (3) Reactive airway disease Qualifiers: Asthma severity: moderate Is this a current diagnosis for this admission?: Yes Plan: Continue Solu-Medrol, bronchodilator and supplemental oxygen. (4) Hyperlipidemia Qualifiers: Hyperlipidemia type: unspecified Is this a current diagnosis for this admission?: Yes Plan: Continue her home medication. (5) Morbid obesity Is this a current diagnosis for this admission?: Yes Plan: Lifestyle modification advised.
[2018-06-05] MEDS: CEFTRIAXONE 2 GM/D5W RTU 2 GM/50 ML RTUPB IV SCH (22:15)
[2018-06-05] MEDS: CHOLECALCIFEROL (D3) 1,000 UNIT TABLET PO SCH (22:15)
[2018-06-05] MEDS: ATORVASTATIN CALCIUM 40 MG TABLET PO SCH (22:16)
[2018-06-05] MEDS: CALCIUM CARBONATE 250 MG/VITAMIN D3 125 UNIT TABLET PO SCH (22:17)
[2018-06-05] MEDS: ESCITALOPRAM OXALATE 10 MG TABLET PO SCH (22:17)
[2018-06-06] MEDS: IPRATROPIUM/ALBUTEROL 0.5-2.5 MG/3 ML AMPUL NEB SCH ×4 (02:12→20:19)
[2018-06-06] MEDS: METHYLPREDNISOLONE INJ 125 MG/2 ML SDV IV SCH ×3 (05:25→21:35)
[2018-06-06] MEDS: BENZONATATE 100 MG CAPSULE PO SCH ×3 (05:26→21:36)
[2018-06-06 05:57] LABS: APPEARANCE,URINE CLEAR; BILIRUBIN,URINE NEGATIVE (NEGATIVE); COLOR,URINE YELLOW; GLUCOSE, URINE NEGATIVE (NEGATIVE); KETONES,URINE NEGATIVE (NEGATIVE); LEUKOCYTE ESTERASE,URINE NEGATIVE (NEGATIVE); NITRITE,URINE NEGATIVE (NEGATIVE); PROTEIN,URINE NEGATIVE (NEGATIVE); URINE SPECIFIC GRAVITY 1.021; UROBILINOGEN,URINE NEGATIVE mg/dL (<2.0)
[2018-06-06] MEDS: GUAIFENESIN/CODEINE PHOS 100-10 MG/ 5 ML UDC PO PRN ×2 (06:29→11:39)
[2018-06-06] MEDS: LANSOPRAZOLE 15 MG TAB.RAP.DR PO SCH (09:34)
[2018-06-06] MEDS: GUAIFENESIN 600 MG TABLET.SA PO SCH ×2 (09:35→21:36)
[2018-06-06] MEDS: NICOTINE 14 MG/24 HR PATCH.TD24 TD SCH (09:36)
[2018-06-06] MEDS: ENOXAPARIN SODIUM INJ 40 MG/0.4 ML DISP.SYRIN SUBCUT SCH (09:36)
[2018-06-06] MEDS: AMLODIPINE BESYLATE 10 MG TABLET PO SCH (09:46)
[2018-06-06] MEDS: POLYETHYLENE GLYCOL 3350 POWDER 17 GM/1 PACKET PO SCH (10:02)
[2018-06-06 10:24] LABS: ABSOLUTE LYMPHOCYTES (AUTO) 1.2 10^3/uL (0.5-4.7); ABSOLUTE MONOCYTES (AUTO) 0.5 10^3/uL (0.1-1.4); ABSOLUTE NEUT (AUTO) 13.7 10^3/uL (1.7-8.2); BASOPHILS % (AUTO) 0.2 % (0-2); HEMATOCRIT 40.2 % (36.0-47.0); HEMOGLOBIN 13.5 g/dL (12.0-15.5); LYMPHOCYTES % (AUTO) 7.7 % (13-45); MEAN CORPUSCULAR HGB CONC 33.5 g/dL (32.0-36.0); MEAN CORPUSCULAR VOLUME 95 fl (80-97); MONOCYTES % (AUTO) 3.2 % (3-13); PLATELET COUNT 279 10^3/uL (150-450); RED BLOOD COUNT 4.22 10^6/uL (3.72-5.28); RED CELL DISTRIBUTION WIDTH 14.2 % (11.5-14.0); SEGMENTED NEUTROPHILS % (AUTO) 88.9 % (42-78); TOTAL CELLS COUNTED % (AUTO) 100 %; WHITE BLOOD COUNT 15.4 10^3/uL (4.0-10.5)
[2018-06-06 10:35] LABS: ANION GAP 11 (5-19); BLOOD UREA NITROGEN 14 mg/dL (7-20); CARBON DIOXIDE 27 mmol/L (22-30); CHLORIDE 104 mmol/L (98-107); GLUCOSE 199 mg/dL (75-110); POTASSIUM 3.8 mmol/L (3.6-5.0); SODIUM 141.9 mmol/L (137-145)
--- NOTE | 2018-06-06 11:17 | RADIOLOGY REPORT (SQ) ---
EXAM DESCRIPTION: CT CHEST WITHOUT COMPLETED DATE/TIME: 06/06/2018 10:48 am REASON FOR STUDY: r/o PNA COMPARISON: 06/02/2018 TECHNIQUE: CT scan performed of the chest without intravenous contrast. Images reviewed with lung, soft tissue and bone windows. Reconstructed coronal and sagittal MPR images reviewed. All images st ored on PACS. All CT scanners at this facility use dose modulation, iterative reconstruction, and/or weight based d osing when appropriate to reduce radiation dose to as low as reasonably achievable (ALARA). [facility]: Dose Right [facility]: CareDose [facility]: Dose Right [facility]: Teradose 4D [facility]: [employer] RADIATION DOSE: CT Rad equipment meets quality standard of care and radiation dose reduction techniq ues were employed. CTDIvol: 17.3 mGy. DLP: 639 mGy-cm. mGy. LIMITATIONS: No technical limitations. FINDINGS: LUNGS AND PLEURA: Diffuse patchy ground-glass attenuation in both lungs for cysts and is s lightly more conspicuous in the upper lobes compared to the prior. No air bronchograms or focal cons olidation HILAR AND MEDIASTINAL STRUCTURES: No identified masses or abnormal nodes. No obvious aneurysm. HEART AND VASCULAR STRUCTURES: No aneurysm. No pericardial effusion. UPPER ABDOMEN: No significant findings. Limited exam. THYROID AND OTHER SOFT TISSUES: No masses. No adenopathy. BONES: No significant finding. HARDWARE: None in the chest. OTHER: No other significant findings. IMPRESSION: Persistent ground-glass attenuation in both lungs with differential as before. No focal areas of consolidation. TECHNICAL DOCUMENTATION: JOB ID: [id number] Quality ID # [id number]: Final reports with documentation of one or more dose reduction techniques (e.g., Au tomated exposure control, adjustment of the mA and/or kV according to patient size, use of iterative reconstruction technique) 2010 [employer]- All Rights Reserved Reading location - IP/workstation name: [email or web address]
[2018-06-06] MEDS: IPRATROPIUM/ALBUTEROL 0.5-2.5 MG/3 ML AMPUL NEB PRN (11:57)
--- NOTE | 2018-06-06 16:53 | PDOC PROGRESS REPORT ---
Subjective Progress Note for:: 06/06/18 Subjective:: This is 63 years old female patient admitted 4 days ago with chief complaint of shortness of previous which is worsening progressively for the last 2 months. Patient has been tried with several rounds of steroid and antibiotics as outpatient to no avail. Initial CT scan of the chest without contrast shows bilateral patchy airspace disease worrisome for multifocal pneumonia, pulmonary edema and pulmonary hemorrhage. Patient has been started empirically with doxycycline and ceftriaxone, high-dose Solu-Medrol 125 mg 3 times a day, DuoNeb every 4 hours supplemental oxygen and intermittent BiPAP. Despite all this treatment patient continues to wheeze and the repeat CT scan of the chest reported as no change from previous. Reason For Visit: PNEUMONIA Physical Exam Vital Signs: Temp Pulse Resp BP Pulse Ox 97.9 F 89 16 143/74 H 95 06/06/18 15:16 06/06/18 15:16 06/06/18 15:16 06/06/18 15:16 06/06/18 15:16 Intake & Output 06/05/18 06/06/18 06/07/18 06:59 06:59 06:59 Intake Total 3100 2252 237 Output Total 600 Balance 3100 1652 237 General appearance: PRESENT: no acute distress, well-developed, well-nourished Head exam: PRESENT: atraumatic, normocephalic Eye exam: PRESENT: conjunctiva pink, EOMI, PERRLA. ABSENT: scleral icterus Ear exam: PRESENT: normal external ear exam Mouth exam: PRESENT: moist, tongue midline Neck exam: ABSENT: carotid bruit, JVD, lymphadenopathy, thyromegaly Respiratory exam: PRESENT: wheezes - Bilateral diffuse wheezing. ABSENT: rales , rhonchi Cardiovascular exam: PRESENT: RRR. ABSENT: diastolic murmur, rubs, systolic murmur Pulses: PRESENT: normal dorsalis pedis pul Vascular exam: PRESENT: normal capillary refill GI/Abdominal exam: PRESENT: normal bowel sounds, soft. ABSENT: distended, guarding, mass, organolmegaly, rebound, tenderness Rectal exam: PRESENT: deferred Extremities exam: PRESENT: full ROM. ABSENT: calf tenderness, clubbing, pedal edema Neurological exam: PRESENT: alert, awake, oriented to person, oriented to place , oriented to time, oriented to situation. ABSENT: motor sensory deficit Psychiatric exam: PRESENT: appropriate affect, normal mood. ABSENT: homicidal ideation, suicidal ideation Skin exam: PRESENT: dry, intact, warm. ABSENT: cyanosis, rash Results Laboratory Results: 06/06/18 09:55 06/06/18 09:55 06/06/18 06/06/18 06/06/18 05:35 09:55 09:55 WBC 15.4 H RBC 4.22 Hgb 13.5 Hct 40.2 MCV 95 MCH 32.0 MCHC 33.5 RDW 14.2 H Plt Count 279 Seg Neutrophils % 88.9 H Lymphocytes % 7.7 L Monocytes % 3.2 Eosinophils % 0.0 Basophils % 0.2 Absolute Neutrophils 13.7 H Absolute Lymphocytes 1.2 Absolute Monocytes 0.5 Absolute Eosinophils 0.0 Absolute Basophils 0.0 Sodium 141.9 Potassium 3.8 Chloride 104 Carbon Dioxide 27 Anion Gap 11 BUN 14 Creatinine 0.57 Est GFR ( Amer) > 60 Est GFR (Non-Af Amer) > 60 Glucose 199 H Calcium 9.0 Urine Color YELLOW Urine Appearance CLEAR Urine pH 6.0 Ur Specific [place] 1.021 Urine Protein NEGATIVE Urine Glucose (UA) NEGATIVE Urine Ketones NEGATIVE Urine Blood NEGATIVE Urine Nitrite NEGATIVE Ur Leukocyte Esterase NEGATIVE Urine WBC (Auto) 1 Urine RBC (Auto) 1 Impressions: Chest X-Ray 06/02/18 10:13 IMPRESSION: NO ACUTE RADIOGRAPHIC FINDING IN THE CHEST. Chest/Abdomen CTA 06/02/18 13:16 IMPRESSION: 1. Study degraded by motion artifact. No definite CT evidence for pulmonary emboli. If clinical concern persists, evaluation with ventilation- perfusion scan or repeat CT angiogram chest can be obtained when the patient will be able to cooperate with positioning. 2. Bilateral patchy ground-glass opacities, may be secondary to multifocal pneumonia, pulmonary edema or hemorrhage. Mild bibasilar atelectasis. 3. Mild mediastinal and hilar adenopathy. Chest CT 06/06/18 00:00 IMPRESSION: Persistent ground-glass attenuation in both lungs with differential as before. No focal areas of consolidation. Assessment & Plan - Diagnosis (1) Acute respiratory failure with hypoxia Is this a current diagnosis for this admission?: Yes Plan: Improving (2) Suspected pneumonia Is this a current diagnosis for this admission?: Yes Plan: Continue current regimen. I will request CT scan of the chest check for resolution of the previous findings. (3) Reactive airway disease Qualifiers: Asthma severity: moderate Is this a current diagnosis for this admission?: Yes Plan: I tapered her Solu-Medrol from 125 mg 3 times a day to 60 mg 3 times a day. (4) Hyperlipidemia Qualifiers: Hyperlipidemia type: unspecified Is this a current diagnosis for this admission?: Yes Plan: Continue her home medication. (5) Morbid obesity Is this a current diagnosis for this admission?: Yes Plan: Lifestyle modification advised.
[2018-06-06] MEDS ORDERED: FUROSEMIDE INJ/PF 40 MG/4 ML SDV IV ONE (16:54)
[2018-06-06] MEDS: AZITHROMYCIN 250 MG TABLET PO SCH (17:41)
[2018-06-06] MEDS: CEFTRIAXONE 2 GM/D5W RTU 2 GM/50 ML RTUPB IV SCH (21:34)
[2018-06-06] MEDS: ESCITALOPRAM OXALATE 10 MG TABLET PO SCH (21:36)
[2018-06-06] MEDS: ATORVASTATIN CALCIUM 40 MG TABLET PO SCH (21:36)
[2018-06-06] MEDS: CHOLECALCIFEROL (D3) 1,000 UNIT TABLET PO SCH (21:36)
[2018-06-06] MEDS: CALCIUM CARBONATE 250 MG/VITAMIN D3 125 UNIT TABLET PO SCH (21:37)
[2018-06-06] MEDS: NORMAL SALINE IV SCH (22:02)
[2018-06-06] MEDS: VORICONAZOLE IV SCH (22:02)
[2018-06-07] MEDS: IPRATROPIUM/ALBUTEROL 0.5-2.5 MG/3 ML AMPUL NEB SCH ×4 (01:15→19:51)
[2018-06-07] MEDS: IBUPROFEN 400 MG TABLET PO PRN (03:38)
[2018-06-07] MEDS: BENZONATATE 100 MG CAPSULE PO SCH ×3 (05:34→22:38)
[2018-06-07] MEDS: METHYLPREDNISOLONE INJ 125 MG/2 ML SDV IV SCH ×2 (05:38→14:28)
[2018-06-07] MEDS: ENOXAPARIN SODIUM INJ 40 MG/0.4 ML DISP.SYRIN SUBCUT SCH (10:48)
[2018-06-07] MEDS: NICOTINE 14 MG/24 HR PATCH.TD24 TD SCH (10:48)
[2018-06-07] MEDS: VORICONAZOLE IV SCH ×2 (10:49→22:37)
[2018-06-07] MEDS: LANSOPRAZOLE 15 MG TAB.RAP.DR PO SCH (10:49)
[2018-06-07] MEDS: AMLODIPINE BESYLATE 10 MG TABLET PO SCH (10:49)
[2018-06-07] MEDS: NORMAL SALINE IV SCH ×2 (10:49→22:37)
[2018-06-07] MEDS: GUAIFENESIN 600 MG TABLET.SA PO SCH ×2 (10:49→22:38)
[2018-06-07] MEDS: POLYETHYLENE GLYCOL 3350 POWDER 17 GM/1 PACKET PO SCH (10:52)
[2018-06-07] MEDS: AZITHROMYCIN 250 MG TABLET PO SCH (17:34)
[2018-06-07] MEDS ORDERED: METHYLPREDNISOLONE INJ 125 MG/2 ML SDV IV SCH (18:22)
--- NOTE | 2018-06-07 18:28 | PDOC PROGRESS REPORT ---
Subjective Progress Note for:: 06/07/18 Subjective:: I seen patient propped up. She is awake alert oriented. She reports her breathing is getting better but clinically she states she has mild to moderate distress. I tapered her Solu-Medrol from 125-60 yesterday seen today to 40 mg every 8 hours. Patient has been started on voriconazole empirically. Repeat CT scan of the chest without contrast reported as no changes in the diffuse bilateral patchy airspace disease which appears groundglass. The differential includes multifocal pneumonia, pulmonary edema, pulmonary hemorrhage, interstitial lung disease and possible fungal pneumonia caused by aspergillosis or histoplasma. Reason For Visit: PNEUMONIA Physical Exam Vital Signs: Temp Pulse Resp BP Pulse Ox 98.4 F 73 18 138/71 H 92 06/07/18 07:46 06/07/18 14:08 06/07/18 14:08 06/07/18 07:46 06/07/18 14:08 Intake & Output 06/06/18 06/07/18 06/08/18 06:59 06:59 06:59 Intake Total 2302 1773 100 Output Total 600 Balance 1702 1773 100 Weight 107 kg General appearance: PRESENT: mild distress Head exam: PRESENT: atraumatic Mouth exam: PRESENT: moist Neck exam: ABSENT: carotid bruit, JVD, lymphadenopathy, thyromegaly Respiratory exam: PRESENT: wheezes Cardiovascular exam: PRESENT: RRR. ABSENT: diastolic murmur, rubs, systolic murmur Results Laboratory Results: 06/06/18 09:55 06/06/18 09:55 Impressions: Chest X-Ray 06/02/18 10:13 IMPRESSION: NO ACUTE RADIOGRAPHIC FINDING IN THE CHEST. Chest/Abdomen CTA 06/02/18 13:16 IMPRESSION: 1. Study degraded by motion artifact. No definite CT evidence for pulmonary emboli. If clinical concern persists, evaluation with ventilation- perfusion scan or repeat CT angiogram chest can be obtained when the patient will be able to cooperate with positioning. 2. Bilateral patchy ground-glass opacities, may be secondary to multifocal pneumonia, pulmonary edema or hemorrhage. Mild bibasilar atelectasis. 3. Mild mediastinal and hilar adenopathy. Chest CT 06/06/18 00:00 IMPRESSION: Persistent ground-glass attenuation in both lungs with differential as before. No focal areas of consolidation. Assessment & Plan - Diagnosis (1) Acute respiratory failure with hypoxia Is this a current diagnosis for this admission?: Yes Plan: Improving (2) Suspected pneumonia Is this a current diagnosis for this admission?: Yes Plan: Response for steroid, antibiotics which includes Zithromax and ceftriaxone is unsatisfactory. Patient started on voriconazole to cover possible fungal agents. (3) Reactive airway disease Qualifiers: Asthma severity: moderate Is this a current diagnosis for this admission?: Yes Plan: I tapered her Solu-Medrol from 125 mg 3 times a day to 60 mg 3 times a day. (4) Hyperlipidemia Qualifiers: Hyperlipidemia type: unspecified Is this a current diagnosis for this admission?: Yes Plan: Continue her home medication. (5) Morbid obesity Is this a current diagnosis for this admission?: Yes Plan: Lifestyle modification advised.
--- NOTE | 2018-06-07 18:34 | PDOC PROGRESS REPORT ---
Subjective Progress Note for:: 06/07/18 Subjective:: No significant event or acute complaints. Regardless of the repeat CT finding and leukocytosis patient has been doing well clinically. She is potential discharge in the coming 48 hours. Reason For Visit: PNEUMONIA Physical Exam Vital Signs: Temp Pulse Resp BP Pulse Ox 98.4 F 73 18 138/71 H 92 06/07/18 07:46 06/07/18 14:08 06/07/18 14:08 06/07/18 07:46 06/07/18 14:08 Intake & Output 06/06/18 06/07/18 06/08/18 06:59 06:59 06:59 Intake Total 2302 1773 100 Output Total 600 Balance 1702 1773 100 Weight 107 kg General appearance: PRESENT: no acute distress Eye exam: PRESENT: conjunctiva pink Mouth exam: PRESENT: moist Respiratory exam: PRESENT: crackles, rhonchi Cardiovascular exam: PRESENT: RRR. ABSENT: diastolic murmur, rubs, systolic murmur GI/Abdominal exam: PRESENT: normal bowel sounds, soft. ABSENT: distended, guarding, mass, organolmegaly, rebound, tenderness Neurological exam: PRESENT: alert, awake Psychiatric exam: PRESENT: normal mood Results Laboratory Results: 06/06/18 09:55 06/06/18 09:55 Impressions: Chest X-Ray 06/02/18 10:13 IMPRESSION: NO ACUTE RADIOGRAPHIC FINDING IN THE CHEST. Chest/Abdomen CTA 06/02/18 13:16 IMPRESSION: 1. Study degraded by motion artifact. No definite CT evidence for pulmonary emboli. If clinical concern persists, evaluation with ventilation- perfusion scan or repeat CT angiogram chest can be obtained when the patient will be able to cooperate with positioning. 2. Bilateral patchy ground-glass opacities, may be secondary to multifocal pneumonia, pulmonary edema or hemorrhage. Mild bibasilar atelectasis. 3. Mild mediastinal and hilar adenopathy. Chest CT 06/06/18 00:00 IMPRESSION: Persistent ground-glass attenuation in both lungs with differential as before. No focal areas of consolidation. Assessment & Plan - Diagnosis (1) Acute respiratory failure with hypoxia Is this a current diagnosis for this admission?: Yes Plan: Improving (2) Suspected pneumonia Is this a current diagnosis for this admission?: Yes Plan: Response for steroid, antibiotics which includes Zithromax and ceftriaxone is unsatisfactory. Patient started on voriconazole to cover possible fungal agents. (3) Reactive airway disease Qualifiers: Asthma severity: moderate Is this a current diagnosis for this admission?: Yes Plan: I tapered her Solu-Medrol from 125 mg 3 times a day to 60 mg 3 times a day. (4) Hyperlipidemia Qualifiers: Hyperlipidemia type: unspecified Is this a current diagnosis for this admission?: Yes Plan: Continue her home medication. (5) Morbid obesity Is this a current diagnosis for this admission?: Yes Plan: Lifestyle modification advised.
[2018-06-07] MEDS: METHYLPREDNISOLONE INJ 40 MG/1 ML SDV IV SCH (22:38)
[2018-06-07] MEDS: ATORVASTATIN CALCIUM 40 MG TABLET PO SCH (22:38)
[2018-06-07] MEDS: ESCITALOPRAM OXALATE 10 MG TABLET PO SCH (22:38)
[2018-06-07] MEDS: CHOLECALCIFEROL (D3) 1,000 UNIT TABLET PO SCH (22:39)
[2018-06-07] MEDS: CEFTRIAXONE 2 GM/D5W RTU 2 GM/50 ML RTUPB IV SCH (22:39)
[2018-06-07] MEDS: CALCIUM CARBONATE 250 MG/VITAMIN D3 125 UNIT TABLET PO SCH (22:43)
[2018-06-08] MEDS: IPRATROPIUM/ALBUTEROL 0.5-2.5 MG/3 ML AMPUL NEB SCH ×4 (01:39→20:03)
[2018-06-08] MEDS: BENZONATATE 100 MG CAPSULE PO SCH ×3 (05:26→21:53)
[2018-06-08] MEDS: METHYLPREDNISOLONE INJ 40 MG/1 ML SDV IV SCH ×3 (05:26→21:56)
[2018-06-08 05:32] LABS: ANION GAP 10 (5-19); BLOOD UREA NITROGEN 17 mg/dL (7-20); CALCIUM 8.7 mg/dL (8.4-10.2); CARBON DIOXIDE 31 mmol/L (22-30); CHLORIDE 101 mmol/L (98-107); GLUCOSE 192 mg/dL (75-110); HEMOGLOBIN 13.2 g/dL (12.0-15.5); MEAN CORPUSCULAR HGB CONC 32.9 g/dL (32.0-36.0); MEAN CORPUSCULAR VOLUME 94 fl (80-97); PLATELET COUNT 265 10^3/uL (150-450); POTASSIUM 3.9 mmol/L (3.6-5.0); RED BLOOD COUNT 4.24 10^6/uL (3.72-5.28); RED CELL DISTRIBUTION WIDTH 13.8 % (11.5-14.0); SODIUM 142.2 mmol/L (137-145); WHITE BLOOD COUNT 13.6 10^3/uL (4.0-10.5)
[2018-06-08 06:11] LABS: ABSOLUTE LYMPHOCYTES# (MANUAL) 2.2 10^3/uL (0.5-4.7); ABSOLUTE MONOCYTES # (MANUAL) 0.4 10^3/uL (0.1-1.4); ANISOCYTOSIS SLIGHT; BASOPHILS % (MANUAL) 0 % (0-2); EOSINOPHILS % (MANUAL) 0 % (0-6); LYMPHOCYTES % (MANUAL) 16 % (13-45); MONOCYTES % (MANUAL) 3 % (3-13); PLATELET CLUMPS PRESENT; PLATELET COMMENT ADEQUATE; PLATELET LARGE PRESENT; SCHISTOCYTES SLIGHT; SEGMENTED NEUTROPHILS % (MAN) 81 % (42-78); TOTAL CELLS COUNTED 100; TOXIC GRANULATION SLIGHT; TOXIC VACUOLATION PRESENT
[2018-06-08] MEDS: GUAIFENESIN 600 MG TABLET.SA PO SCH ×2 (09:36→21:52)
[2018-06-08] MEDS: AMLODIPINE BESYLATE 10 MG TABLET PO SCH (09:36)
[2018-06-08] MEDS: NICOTINE 14 MG/24 HR PATCH.TD24 TD SCH (09:36)
[2018-06-08] MEDS: POLYETHYLENE GLYCOL 3350 POWDER 17 GM/1 PACKET PO SCH (09:36)
[2018-06-08] MEDS: LANSOPRAZOLE 15 MG TAB.RAP.DR PO SCH (09:36)
[2018-06-08] MEDS: ENOXAPARIN SODIUM INJ 40 MG/0.4 ML DISP.SYRIN SUBCUT SCH (09:37)
[2018-06-08] MEDS: VORICONAZOLE IV SCH ×2 (09:42→22:50)
[2018-06-08] MEDS: NORMAL SALINE IV SCH ×2 (09:42→22:50)
--- NOTE | 2018-06-08 12:28 | Progress Note ---
Provider Note Provider Note: ID Consult Note Asked by Pharmacy to review patient's chart. Pt not seen or examined. Reviewed VS, labs, imaging reports, provider reports. Ms. Conte is a 63 year old female smoker with PMH including HLD and anxiety who , on 06/03, p/w 2 months progressive dry cough, dyspnea and wheezing w/o fever/chills or other constitutional complaints per ED note and H&P. Her sx failed to improve with various outpatient courses of antibiotics and inhalers. She was afebrile on admission , had O2 sat in ED 89%, diffuse wheezing b/l. CBC unremarkable except for mild eosinophilia. BNP not elevated. CTA w/o evidence of PE, instead read as showing patchy GGO in b/l upper lobes and some atelectatic changes in RML and b/l lower lobes, and some hilar and mediastinal LAD, no focal consolidation or air bronchograms. Pt was managed with high dose steroids, supplemental O2 / BiPAP, and also empiric antibiotic therapy for suspicion of multifocal pneumonia. BCx negative in 1 set, other set contaminated with Bacillus species. No sputum culture. Levaquin and cefepime given on 06/02, then continued on Rocephin/azithromycin from 06/03 to present. Pt continued to be afebrile. Continued have wheezing and not much change on repeat CT scan on 06/06 with diffuse ground glass opacities b/l. Voriconazole was added empirically on 06/06 for possible fungal pneumonia caused by aspergillosis or Histoplasma. Today is day 7 of total antibiotic therapy aimed at CAP (Levaquin, then Rocephin/azithromycin). Impression/Recommendations Duration of patient's sx (progressive dry cough, dyspnea and wheezing for 2 months rather than days) suggests a chronic pneumonia syndrome rather than an acute typical bacterial process, as would also be suggested by her history of having received multiple prior courses of antibiotics as an outaptient without improvement. As such, I doubt that azithromycin and Rocephin are adding much to her improvement. Recommend discontinuing azithromycin and Rocephin. Chronic pneumonia syndromes can be due to a wide variety of noninfectious ( autoimmune, hypersensitivity, drug-induced, neoplastic, idopathic) and infectious etiologies, including mycobacterial and fungal infections. There is also a wide differential for ground glass opacities on CT encompassing, again, several inflammatory or infiltrative lung disorders, noninfectious and infectious. Also recommend also discontinuing voriconazole considering that no fungal etiology has been identified, unless the patient is at high risk ( epidemiologically quite likely to have a fungal pneumonia, has clinical presentation compatible with such). Patients at risk for severe fungal pneumonias that require antifungal therapy are generally those with pre- existing structural lung disease and/or severe immunocompromise. Otherwise a more measured approach can usually be taken, awaiting diagnostic confirmation of an infection rather than empirically treating while workup is in process. It is worth bearing in mind that generally fungal pneumonias are not treated for short courses (days) but instead are usually in the range of 6 weeks to 6 months , depending on the etiology and the host. Further investigation and establishment of a diagnosis would be warranted before embarking on such a course. The lack of fever raises some doubt about infectious underlying etiology. The fact that the patient has a calcified nodule in the RUL might potentially reflect a calcified granuloma and could indicate prior exposure to a granulomatous disease, such as TB (risk factors?), although it does not usually present with this type of CT imaging pattern and usually would be accompanied by constitutional sx such as fevers, weight loss. Doubt TB would be likely. With apparent calcified granuloma, which is likely incidental, consider placing PPD or Quantiferon. Consider getting HIV test, since all adults should be screened and it would influence the differential diagnosis of her chest imaging findings, but I think it is worth bearing in mind the possibility that there are noninfectious etiologies to consider. Consider consulting Pulmonary for assistance in evaluating patient. Wilmer Lee MD [facility] Infectious Diseases pager [phone]
[2018-06-08] MEDS ORDERED: METHYLPREDNISOLONE INJ 40 MG/1 ML SDV IV SCH (13:43)
--- NOTE | 2018-06-08 15:11 | PDOC PROGRESS REPORT ---
Subjective Progress Note for:: 06/08/18 Subjective:: I seen patient propped up in bed chatting with his and friend. Patient has been showing steady progress and improvement the last 48 hours after she has been started on voriconazole. Reason For Visit: PNEUMONIA Physical Exam Vital Signs: Temp Pulse Resp BP Pulse Ox 97.9 F 79 16 138/68 H 92 06/08/18 11:49 06/08/18 14:00 06/08/18 13:53 06/08/18 11:49 06/08/18 13:53 Intake & Output 06/07/18 06/08/18 06/09/18 06:59 06:59 06:59 Intake Total 1773 3548 2136 Balance 1773 3548 2136 Weight 107 kg 108 kg General appearance: PRESENT: no acute distress, well-developed, well-nourished Head exam: PRESENT: atraumatic, normocephalic Eye exam: PRESENT: conjunctiva pink. ABSENT: scleral icterus Mouth exam: PRESENT: moist Neck exam: ABSENT: carotid bruit, JVD, lymphadenopathy, thyromegaly Respiratory exam: PRESENT: wheezes - Mild wheezing. ABSENT: rales, rhonchi Cardiovascular exam: PRESENT: RRR. ABSENT: diastolic murmur, rubs, systolic murmur Pulses: PRESENT: normal dorsalis pedis pul Vascular exam: PRESENT: normal capillary refill GI/Abdominal exam: PRESENT: normal bowel sounds, soft. ABSENT: distended, guarding, mass, organolmegaly, rebound, tenderness Rectal exam: PRESENT: deferred Extremities exam: PRESENT: full ROM. ABSENT: calf tenderness, clubbing, pedal edema Neurological exam: PRESENT: alert, awake, oriented to person, oriented to place , oriented to time, oriented to situation. ABSENT: motor sensory deficit Psychiatric exam: PRESENT: appropriate affect, normal mood. ABSENT: homicidal ideation, suicidal ideation Skin exam: PRESENT: dry, intact, warm. ABSENT: cyanosis, rash Results Laboratory Results: 06/08/18 04:49 06/08/18 04:49 06/08/18 06/08/18 04:49 04:49 WBC 13.6 H RBC 4.24 Hgb 13.2 Hct 40.0 MCV 94 MCH 31.0 MCHC 32.9 RDW 13.8 Plt Count 265 Seg Neutrophils % Not Reportable Lymphocytes % Not Reportable Monocytes % Not Reportable Eosinophils % Not Reportable Basophils % Not Reportable Absolute Neutrophils Not Reportable Absolute Lymphocytes Not Reportable Absolute Monocytes Not Reportable Absolute Eosinophils Not Reportable Absolute Basophils Not Reportable Sodium 142.2 Potassium 3.9 Chloride 101 Carbon Dioxide 31 H Anion Gap 10 BUN 17 Creatinine 0.68 Est GFR ( Amer) > 60 Est GFR (Non-Af Amer) > 60 Glucose 192 H Calcium 8.7 06/02/18 18:35 Blood Blood Culture - Final NO GROWTH IN 5 DAYS Impressions: Chest X-Ray 06/02/18 10:13 IMPRESSION: NO ACUTE RADIOGRAPHIC FINDING IN THE CHEST. Chest/Abdomen CTA 06/02/18 13:16 IMPRESSION: 1. Study degraded by motion artifact. No definite CT evidence for pulmonary emboli. If clinical concern persists, evaluation with ventilation- perfusion scan or repeat CT angiogram chest can be obtained when the patient will be able to cooperate with positioning. 2. Bilateral patchy ground-glass opacities, may be secondary to multifocal pneumonia, pulmonary edema or hemorrhage. Mild bibasilar atelectasis. 3. Mild mediastinal and hilar adenopathy. Chest CT 06/06/18 00:00 IMPRESSION: Persistent ground-glass attenuation in both lungs with differential as before. No focal areas of consolidation. Assessment & Plan - Diagnosis (1) Acute respiratory failure with hypoxia Is this a current diagnosis for this admission?: Yes Plan: Resolving (2) Suspected pneumonia Is this a current diagnosis for this admission?: Yes Plan: Patient is responding to voriconazole. (3) Reactive airway disease Qualifiers: Asthma severity: moderate Is this a current diagnosis for this admission?: Yes Plan: I tapered her Solu-Medrol from 125 mg 3 times a day to 60 mg 3 times a day. (4) Hyperlipidemia Qualifiers: Hyperlipidemia type: unspecified Is this a current diagnosis for this admission?: Yes Plan: Continue her home medication. (5) Morbid obesity Is this a current diagnosis for this admission?: Yes Plan: Lifestyle modification advised.
[2018-06-08] MEDS: AZITHROMYCIN 250 MG TABLET PO SCH (17:49)
[2018-06-08] MEDS: CHOLECALCIFEROL (D3) 1,000 UNIT TABLET PO SCH (21:51)
[2018-06-08] MEDS: CALCIUM CARBONATE 250 MG/VITAMIN D3 125 UNIT TABLET PO SCH (21:52)
[2018-06-08] MEDS: ESCITALOPRAM OXALATE 10 MG TABLET PO SCH (21:52)
[2018-06-08] MEDS: ATORVASTATIN CALCIUM 40 MG TABLET PO SCH (21:53)
[2018-06-08] MEDS: CEFTRIAXONE 2 GM/D5W RTU 2 GM/50 ML RTUPB IV SCH (21:59)
[2018-06-09] MEDS: IPRATROPIUM/ALBUTEROL 0.5-2.5 MG/3 ML AMPUL NEB SCH ×2 (01:46→08:17)
[2018-06-09] MEDS: METHYLPREDNISOLONE INJ 40 MG/1 ML SDV IV SCH (05:36)
[2018-06-09] MEDS: BENZONATATE 100 MG CAPSULE PO SCH (05:37)
[2018-06-09] MEDS: GUAIFENESIN 600 MG TABLET.SA PO SCH (09:10)
[2018-06-09] MEDS: LANSOPRAZOLE 15 MG TAB.RAP.DR PO SCH (09:10)
[2018-06-09] MEDS: NICOTINE 14 MG/24 HR PATCH.TD24 TD SCH (09:10)
[2018-06-09] MEDS: POLYETHYLENE GLYCOL 3350 POWDER 17 GM/1 PACKET PO SCH (09:11)
[2018-06-09] MEDS: ENOXAPARIN SODIUM INJ 40 MG/0.4 ML DISP.SYRIN SUBCUT SCH (09:12)
[2018-06-09] MEDS: AMLODIPINE BESYLATE 10 MG TABLET PO SCH (09:15)
[2018-06-09] MEDS: NORMAL SALINE IV SCH (10:00)
[2018-06-09] MEDS: VORICONAZOLE IV SCH (10:00)
[2018-06-09 10:33] VITALS: BP 120/62
--- NOTE | 2018-06-30 18:36 | PDOC DISCHARGE SUMMARY ---
General - Admit/Disc Date/PCP Admission Date/Primary Care Provider: 06/02/18 15:29 Discharge Date: 06/09/18 - Discharge Diagnosis (1) Acute respiratory failure with hypoxia Is this a current diagnosis for this admission?: Yes (2) Suspected pneumonia Is this a current diagnosis for this admission?: Yes (3) Reactive airway disease Is this a current diagnosis for this admission?: Yes (4) Hyperlipidemia Is this a current diagnosis for this admission?: Yes (5) Morbid obesity Is this a current diagnosis for this admission?: Yes - Additional Information Prescriptions: Amlodipine Besylate [Norvasc 10 mg Tablet] 10 mg PO DAILY #30 tablet Prednisone 40 mg PO DAILY #10 tablet Voriconazole [Vfend] 200 mg PO BID #10 tablet Home Medications: Atorvastatin Calcium [Lipitor 40 mg Tablet] 40 mg PO WSUPPER 06/02/18 Calcium Carb/Magnesium Oxid/D3 [Calcium Magnesium + D Tablet] 2 tab PO QHS 06/02 Cholecalciferol (Vitamin D3) [Vitamin D3 5000 unit Capsule] 5,000 unit PO QHS Escitalopram Oxalate [Lexapro] 5 mg PO QHS 06/02/18 Ipratropium/Albuterol Sulfate [Duoneb 3 ml Ampul] 3 ml NEB [id number] PRN 06/02/18 Linaclotide [Linzess] 290 mcg PO QHS 06/02/18 Omeprazole 20 mg PO DAILY 06/02/18 Amlodipine Besylate [Norvasc 10 mg Tablet] 10 mg PO DAILY #30 tablet 06/09/18 Prednisone 40 mg PO DAILY #10 tablet 06/09/18 Voriconazole [Vfend] 200 mg PO BID #10 tablet 06/09/18 History of Present Illness History of Present Illness: PRISCA ABREU is a 63 year old -vnsb-del female smoker with hyperlipidemia, morbid obesity,Hypertension and anxiety and depression presents emergency department complaining of a two-month history of minimally productive cough that has been gettting progressively worse. Patient states she has taken multiple doses of antibiotics, steroids and had multiple chest x-rays and use multiple inhalers without any relief. States that she has a constant wheeze or rattle in her chest associated with pain in her chest from coughing. Denies fevers, chills, nausea or vomiting. No fever, chills, chest pain, palpitation or diaphoresis. No nausea, vomiting, abdominal pain, diarrhea or urinary complaints. No dizziness, blurring of vision, syncope or any seizure activity. Hospital Course Hospital Course: This is a 63 years old female patient presented with 2 months history of dry hacking cough, shortness of breath and wheezing. Her CT scan of the chest reported as bilateral patchy consolidation of groundglass appearance suspicious for multifocal pneumonia versus pulmonary edema versus pulmonary hemorrhage. Patient had been with high does Solu-Medrol, bronchodilator, supplemental oxygen, Zithromax and ceftriaxone to no avail. Patient continued to wheeze. The repeat CT scan of the chest revealed the same findings which are mentioned above. I started her empirically on voriconazole and patient shows marked improvement in her shortness of breath and wheezing. This morning I evaluated the patient chest is clear her vital signs are within normal limits and her labs are stable. Patient is stable enough to be discharged. I will discharge her with Norvasc 10 mg p.o. daily, prednisone 40 mg p.o. daily for 5 days, and voriconazole 200 mg twice daily for 5 days. Patient advised to have follow-up with her primary care physician and if her condition is worse that she needs follow-up with mold presser. Physical Exam Vital Signs: Temp Pulse Resp BP Pulse Ox 98.8 F 70 20 143/76 H 90 L 06/09/18 08:04 06/09/18 08:17 06/09/18 08:17 06/09/18 08:04 06/09/18 08:17 Intake & Output 06/08/18 06/09/18 06/10/18 06:59 06:59 06:59 Intake Total 3548 3160 Balance 3548 3160 Weight 108 kg 105.9 kg Results Laboratory Results: 06/08/18 04:49 06/08/18 04:49 Impressions: Chest X-Ray 06/02/18 10:13 IMPRESSION: NO ACUTE RADIOGRAPHIC FINDING IN THE CHEST. Chest/Abdomen CTA 06/02/18 13:16 IMPRESSION: 1. Study degraded by motion artifact. No definite CT evidence for pulmonary emboli. If clinical concern persists, evaluation with ventilation- perfusion scan or repeat CT angiogram chest can be obtained when the patient will be able to cooperate with positioning. 2. Bilateral patchy ground-glass opacities, may be secondary to multifocal pneumonia, pulmonary edema or hemorrhage. Mild bibasilar atelectasis. 3. Mild mediastinal and hilar adenopathy. Chest CT 06/06/18 00:00 IMPRESSION: Persistent ground-glass attenuation in both lungs with differential as before. No focal areas of consolidation. Qualifiers - * PATIENT BEING DISCHARGED WITH ANY OF THE FOLLOWING DIAGNOSIS: No
== END 2018-06-09 11:10 | disposition home or self-care (01) | DRG 193 ==
LOC: ER 09:56 → EH 15:29 → 3W 17:39
PROVIDERS: ADMIT Internal Medicine; ATTEND Internal Medicine
PROC: 5A09357 Assistance with Respiratory Ventilation, Less than 24 Consecutive Hours, Continuous Positive Airway Pressure (ICD-10-PCS; 2018-06-03)
PROC: 3E0234Z Introduction of Serum, Toxoid and Vaccine into Muscle, Percutaneous Approach (ICD-10-PCS; 2018-06-03)
PROC: 5A09557 Assistance with Respiratory Ventilation, Greater than 96 Consecutive Hours, Continuous Positive Airway Pressure (ICD-10-PCS; principal; 2018-06-05)
DX: J18.9 Pneumonia, unspecified organism (principal); J96.01 Acute respiratory failure with hypoxia; Z68.41 Body mass index [BMI] 40.0-44.9, adult; J45.909 Unspecified asthma, uncomplicated; E78.5 Hyperlipidemia, unspecified; E66.01 Morbid (severe) obesity due to excess calories; Z87.891 Personal history of nicotine dependence; F41.9 Anxiety disorder, unspecified; F32.9 Major depressive disorder, single episode, unspecified; Z79.52 Long term (current) use of systemic steroids; Z79.899 Other long term (current) drug therapy
CPT/HCPCS: 36415; 71046; 71250; 71275; 80048; 80053; 81001; 82550; 82553; 82803; 83036; 83880; 84443; 84484; 85025; 87040; 87077; 94640; 94660; 96365; 96375; 99285; J0456; J0692; J0696; J1650; J1885; J1940; J1956; J2920; J2930; J3465; J3475; J3490; J7030; J7060; J7620

== ENCOUNTER 2018-07-10 13:25 | Emergency (ER) | payer OTHER ==
[2018-07-10 14:01] LABS: HEMATOCRIT 41.7 % (36.0-47.0); HEMOGLOBIN 14.4 g/dL (12.0-15.5); MEAN CORPUSCULAR HEMOGLOBIN 32.4 pg (27.0-33.4); MEAN CORPUSCULAR HGB CONC 34.4 g/dL (32.0-36.0); MEAN CORPUSCULAR VOLUME 94 fl (80-97); PLATELET COUNT 276 10^3/uL (150-450); RED BLOOD COUNT 4.43 10^6/uL (3.72-5.28); RED CELL DISTRIBUTION WIDTH 14.4 % (11.5-14.0); WHITE BLOOD COUNT 10.6 10^3/uL (4.0-10.5)
[2018-07-10 14:06] LABS: APPEARANCE,URINE CLEAR; BILIRUBIN,URINE NEGATIVE (NEGATIVE); COLOR,URINE STRAW; GLUCOSE, URINE NEGATIVE (NEGATIVE); KETONES,URINE NEGATIVE (NEGATIVE); LEUKOCYTE ESTERASE,URINE NEGATIVE (NEGATIVE); NITRITE,URINE NEGATIVE (NEGATIVE); PROTEIN,URINE NEGATIVE (NEGATIVE); URINE SPECIFIC GRAVITY 1.002; UROBILINOGEN,URINE NEGATIVE mg/dL (<2.0)
--- NOTE | 2018-07-10 14:13 | ER Document Report ---
ED General - General Mode of Arrival: Ambulatory Information source: Patient TRAVEL OUTSIDE OF THE [place] IN LAST 30 DAYS: Yes <ISRRAEL SHERMAN - Last Filed: 07/10/18 14:07> <ARIANNA JONES - Last Filed: 07/10/18 15:34> - General Chief Complaint: Arrhythmia Stated Complaint: CHEST PAIN Time Seen by Provider: 07/10/18 13:44 Notes: Patient is a 63 year old female presenting to the emergency department via EMS complaining of heart palpitations onset today. Patient states she felt like her heart was racing and she proceeded to call EMS. Upon EMS arrival, they found the patient to be in SVT with a rate of 190. EMS proceeded to give 6 mg of adenosine which converted the heart rate. Patient states she had similar episodes in the past which were contributed to anxiety and she was prescribed Lexapro. (ISRRAEL SHERMAN) - Related Data Allergies/Adverse Reactions: No Known Allergies Allergy (Unverified 06/02/18 09:59) Past Medical History - General Information source: Patient - Social History Smoking Status: Former Smoker Chew tobacco use (# tins/day): No Frequency of alcohol use: None Drug Abuse: None Family History: COPD Patient has suicidal ideation: No Patient has homicidal ideation: No - Past Medical History Cardiac Medical History: Reports: Hx Hypercholesterolemia GI Medical History: Reports: Hx Gastroesophageal Reflux Disease Past Surgical History: Reports: Hx Section, Other - Goiter removal from thyroid a few years ago. <ISRRAEL SHERMAN - Last Filed: 07/10/18 14:07> Review of Systems - Review of Systems Constitutional: No symptoms reported EENT: No symptoms reported Cardiovascular: See HPI, Palpitations, Heart racing Respiratory: No symptoms reported Gastrointestinal: No symptoms reported Genitourinary: No symptoms reported Female Genitourinary: No symptoms reported Musculoskeletal: No symptoms reported Skin: No symptoms reported Hematologic/Lymphatic: No symptoms reported Neurological/Psychological: No symptoms reported -: Yes All other systems reviewed and negative <ISRRAEL SHERMAN - Last Filed: 07/10/18 14:07> Physical Exam <ISRRAEL SHERMAN - Last Filed: 07/10/18 14:07> <ARIANNA JONES - Last Filed: 07/10/18 15:34> - Vital signs Vitals: Resp Pulse Ox 17 95 07/10/18 13:46 07/10/18 13:46 - Notes Notes: GENERAL: Alert, interacts well. No acute distress. HEAD: Normocephalic, atraumatic. EYES: Pupils equal, round, and reactive to light. Extraocular movements intact. ENT: Oral mucosa moist, tongue midline. NECK: Full range of motion. Supple. Trachea midline. LUNGS: Clear to auscultation bilaterally, no wheezes, rales, or rhonchi. No respiratory distress. HEART: Regular rate and rhythm. No murmurs, gallops, or rubs. ABDOMEN: Soft, obese. Non-tender. Non-distended. Bowel sounds present in all 4 quadrants. EXTREMITIES: Moves all 4 extremities spontaneously. NEUROLOGICAL: Alert and oriented x3. Normal speech. PSYCH: Normal affect, normal mood. SKIN: Warm, dry, normal turgor. No rashes or lesions noted. (ISRRAEL SHERMAN) Course - Laboratory Result Diagrams: 07/10/18 13:39 07/10/18 13:39 <ISRRAEL SHERMAN - Last Filed: 07/10/18 14:07> - Laboratory Result Diagrams: 07/10/18 13:39 07/10/18 13:39 - EKG Interpretation by Id EKG shows normal: Sinus rhythm, [place], Intervals, QRS Complexes, ST-T Waves Rate: Normal - 88 Rhythm: NSR P Waves: LAE <ARIANNA JONES - Last Filed: 07/10/18 15:34> - Vital Signs Vital signs: Temp Pulse Resp BP Pulse Ox 12 105/70 97 07/10/18 14:01 07/10/18 14:01 07/10/18 14:01 - Laboratory Laboratory results interpreted by ct: 07/10/18 07/10/18 13:39 13:39 WBC 10.6 H RDW 14.4 H Abs Lymphs (Manual) 4.9 H Sodium 146.4 H Chloride 109 H Discharge <ISRRAEL SHERMAN - Last Filed: 07/10/18 14:07> <ARIANNA JONES - Last Filed: 07/10/18 15:34> - Discharge Clinical Impression: Supraventricular tachycardia Condition: Stable Disposition: HOME, SELF-CARE Additional Instructions: Palpitations (Irregular/Rapid Heartrate): Irregular or rapid heartbeat is called "palpitation." To diagnose the cause of palpitation, we have to "catch it in the act" with an EKG. Paroxysmal Atrial Tachycardia (PAT)/also called Supraventricular Tachycardia(SVT): This abnormally rapid heartbeat is caused by a "short circuit " in the electrical system of the heart. It is not dangerous, unless other heart disease is present. These attacks of PAT may occur occasionally for years. Medication is available for treatment. Contact the physician at once if you develop persistent lightheadedness, shortness of breath, chest pain, or swelling of the ankles. 8 Follow-up with Dr. Choudhary the green feed attendant director of corporate responsibility, or a local primary care provider to manage your tachycardia if it continues to be a problem. RETURN TO THE EMERGENCY ROOM IF ANY NEW OR WORSENING SYMPTOMS. Annitaibe Attestation: 07/10/18 14:45 I personally performed the services described in the documentation, reviewed and edited the documentation which was dictated to the scribe in my presence, and it accurately records my words and actions. (ARIANNA JONES) Scribe Documentation - Scribe Written by Raquel:: Raquel Gan, 07/10/2018 14:13 acting as scribe for :: Chata <ISRRAEL SHERMAN - Last Filed: 07/10/18 14:07>
[2018-07-10 14:21] LABS: ALANINE AMINOTRANSFERASE 29 U/L (9-52); ALBUMIN 3.6 g/dL (3.5-5.0); ALKALINE PHOSPHATASE 105 U/L (38-126); ANION GAP 12 (5-19); ASPARTATE AMINO TRANSFERASE 25 U/L (14-36); BILIRUBIN,DIRECT 0.3 mg/dL (0.0-0.4); BILIRUBIN,TOTAL 0.4 mg/dL (0.2-1.3); BLOOD UREA NITROGEN 8 mg/dL (7-20); CARBON DIOXIDE 25 mmol/L (22-30); CHLORIDE 109 mmol/L (98-107); CREATINE KINASE 52 U/L (30-135); GLUCOSE 99 mg/dL (75-110); POTASSIUM 4.5 mmol/L (3.6-5.0); SODIUM 146.4 mmol/L (137-145); TOTAL PROTEIN 6.5 g/dL (6.3-8.2)
[2018-07-10 14:28] LABS: ABSOLUTE LYMPHOCYTES# (MANUAL) 4.9 10^3/uL (0.5-4.7); ABSOLUTE MONOCYTES # (MANUAL) 0.8 10^3/uL (0.1-1.4); ABSOLUTE NEUTROPHILS# (MANUAL) 4.9 10^3/uL (1.7-8.2); BASOPHILS % (MANUAL) 0 % (0-2); EOSINOPHILS % (MANUAL) 0 % (0-6); LYMPHOCYTES % (MANUAL) 43 % (13-45); MONOCYTES % (MANUAL) 8 % (3-13); SEGMENTED NEUTROPHILS % (MAN) 46 % (42-78); TOTAL CELLS COUNTED 100
[2018-07-10 14:29] LABS: ANISOCYTOSIS SLIGHT; PLATELET COMMENT ADEQUATE
[2018-07-10 14:33] LABS: CREATINE KINASE MB 0.61 ng/mL (<4.55)
[2018-07-10 14:36] LABS: FREE T3 4.11 pg/mL (2.77-5.27); FREE T4 (FREE THYROXINE) 1.13 ng/dL (0.78-2.19); TROPONIN I < 0.012 ng/mL
[2018-07-10 14:50] LABS: THYROID STIMULATING HORMONE 2.67 uIU/mL (0.47-4.68)
[2018-07-10 16:12] VITALS: BP 115/71
--- NOTE | 2018-07-10 19:26 | EKG REPORT ---
SEVERITY:- BORDERLINE ECG - SINUS RHYTHM PROBABLE LEFT ATRIAL ABNORMALITY : Confirmed by: Gael Bennett MD 10-Jul-2018 19:26:14
== END 2018-07-10 16:20 | disposition home or self-care (01) ==
LOC: ER 13:25
DX: I47.1 Supraventricular tachycardia (principal); R07.9 Chest pain, unspecified; R00.2 Palpitations; E78.00 Pure hypercholesterolemia, unspecified; Z87.891 Personal history of nicotine dependence
CPT/HCPCS: 36415; 80053; 81001; 82550; 82553; 83735; 84439; 84443; 84481; 84484; 85025; 93005; 93010; 99285

== ENCOUNTER 2018-07-25 02:34 | Emergency (ER) | payer OTHER ==
[2018-07-25] MEDS ORDERED: ASPIRIN 81 MG TABLET, CHEWABLE PO ONE (02:40)
--- NOTE | 2018-07-25 02:45 | ER Document Report ---
ED General - General Chief Complaint: Irregular Pulse Stated Complaint: FAST HEART RATE Time Seen by Provider: 07/25/18 02:44 Information source: Patient Notes: Patient is a 63-year-old female with SVT that presents to the emergency department for chief complaint of SVT. Patient was brought to the emergency department by EMS, she was given 6 mg of IV push adenosine, which did convert her to sinus rhythm. Patient states that she had an episode similar to this 2 weeks ago, was monitored in the emergency department and discharged home. She is scheduled to see her primary care physician on 07/25/2018, for follow-up, and to be referred to a ingot supervisor. She states she was in the hospital not too long ago, for a fungal respiratory infection, and is on multiple antibiotics, antifungal agents, but she denies of any shortness of breath or cough at this time. She denies having any headache, fevers, chills, night sweats, nausea, vomiting or abdominal pain. Past Medical History: SVT, anxiety Past Surgical History: Thyroid nodule removal, Social History: Denies tobacco use, denies alcohol or drug use Family History: Reviewed and noncontributory for presenting illness Allergies: Reviewed, see documented allergy list. REVIEW OF SYSTEMS: Unless otherwise stated in this report the patient's positive and negative responses for review of systems for constitutional, eyes, ENT, cardiovascular, respiratory, gastrointestinal, neurological, genitourinary, musculoskeletal, and integumentary systems and related systems to the presenting problem are either as stated in the HPI or were not pertinent or were negative for the symptoms and/or complaints related to the presenting medical problem. PHYSICAL EXAMINATION: Vital signs reviewed, nursing noted reviewed. GENERAL: Well-appearing, well-nourished and mildly anxious HEAD: Atraumatic, normocephalic. EYES: Eyes appear normal, extraocular movements intact, sclera anicteric, conjunctiva are normal. ENT: nares patent, oropharynx clear without exudates. Moist mucous membranes. NECK: Normal range of motion, supple without lymphadenopathy LUNGS: Breath sounds clear to auscultation bilaterally and equal. No wheezes rales or rhonchi. HEART: Regular rate and rhythm without murmurs ABDOMEN: Soft, nontender, normoactive bowel sounds. No rebound, guarding, or rigidity. No masses appreciated. EXTREMITIES: Nontender, good range of motion, no pitting or edema. NEUROLOGICAL: No focal neurological deficits. Moves all extremities spontaneously Motor and sensory grossly intact on exam. PSYCH: Mildly anxious, normal affect. SKIN: Warm, Dry, normal turgor, no rashes or lesions noted on exposed skin TRAVEL OUTSIDE OF THE [place] IN LAST 30 DAYS: Yes - Related Data Allergies/Adverse Reactions: No Known Allergies Allergy (Unverified 06/02/18 09:59) Past Medical History - Social History Smoking Status: Never Smoker Family History: Reviewed & Not Pertinent, COPD - Past Medical History Cardiac Medical History: Reports: Hx Hypercholesterolemia Renal/ Medical History: Denies: Hx Peritoneal Dialysis GI Medical History: Reports: Hx Gastroesophageal Reflux Disease Past Surgical History: Reports: Hx Section, Other - Goiter removal from thyroid a few years ago. Physical Exam - Vital signs Vitals: Resp 19 07/25/18 02:37 Course - Re-evaluation Re-evalutation: Patient seen and examined vital signs reviewed. Laboratory data and imaging were ordered as appropriate for the patient's presenting symptoms and complaint, with consideration of any critical or life threatening conditions that may be associated with their obtained history and exam as noted above. Patient was treated with IV fluids, received adenosine by EMS Results were reviewed when available and demonstrated normal electrolytes, troponin negative, chest x-ray negative The patient was re-evaluated and was in stable condition, she briefly had borderline hypotension, but after IV fluids, was normotensive, patient did not feel presyncopal during her ED course. Evaluation was most consistent with SVT or paroxysmal, patient has an appointment with her physician today, and will give her referral to cardiology, she is advised to keep her appointment with her doctor today. Results were discussed with the patient at this point, after careful consideration I feel that that patient can be discharged from the emergency department, the patient was educated treatments and reasons to return to the emergency department based on their presumed diagnosis as noted above, they were advised to followup with a primary care physician in 2-3 days. Patient was agreeable to plan of care. *Note is created using voice recognition software and may contain spelling, syntax or grammatical errors. Laboratory 07/25/18 07/25/18 07/25/18 02:46 02:46 02:46 WBC 12.4 H RBC 4.16 Hgb 13.1 Hct 39.6 MCV 95 MCH 31.5 MCHC 33.1 RDW 15.3 H Plt Count 245 Seg Neutrophils % 67.7 Lymphocytes % 23.5 Monocytes % 5.4 Eosinophils % 2.0 Basophils % 1.4 Absolute Neutrophils 8.4 H Absolute Lymphocytes 2.9 Absolute Monocytes 0.7 Absolute Eosinophils 0.2 Absolute Basophils 0.2 PT 12.4 INR 0.88 Sodium 142.3 Potassium 3.9 Chloride 108 H Carbon Dioxide 25 Anion Gap 9 BUN 7 Creatinine 0.70 Est GFR ( Amer) > 60 Est GFR (Non-Af Amer) > 60 Glucose 107 Calcium 9.4 Total Bilirubin 0.6 Direct Bilirubin 0.3 Neonat Total Bilirubin Not Reportable Neonat Direct Bilirubin Not Reportable Neonat Indirect Bili Not Reportable AST 33 ALT 29 Alkaline Phosphatase 100 Creatine Kinase 217 H CK-MB (CK-2) Troponin I Total Protein 6.8 Albumin 3.7 TSH 07/25/18 07/25/18 02:46 02:46 WBC RBC Hgb Hct MCV MCH MCHC RDW Plt Count Seg Neutrophils % Lymphocytes % Monocytes % Eosinophils % Basophils % Absolute Neutrophils Absolute Lymphocytes Absolute Monocytes Absolute Eosinophils Absolute Basophils PT INR Sodium Potassium Chloride Carbon Dioxide Anion Gap BUN Creatinine Est GFR ( Amer) Est GFR (Non-Af Amer) Glucose Calcium Total Bilirubin Direct Bilirubin Neonat Total Bilirubin Neonat Direct Bilirubin Neonat Indirect Bili AST ALT Alkaline Phosphatase Creatine Kinase CK-MB (CK-2) 2.03 Troponin I < 0.012 Total Protein Albumin TSH 3.19 Chest X-Ray 07/25/18 02:40 IMPRESSION: No acute cardiopulmonary findings. - Vital Signs Vital signs: Temp Pulse Resp BP Pulse Ox 98.5 F 85 18 109/62 96 07/25/18 05:53 07/25/18 05:53 07/25/18 05:53 07/25/18 05:53 07/25/18 05:53 - Laboratory Result Diagrams: 07/25/18 02:46 07/25/18 02:46 Laboratory results interpreted by me: 07/25/18 07/25/18 02:46 02:46 WBC 12.4 H RDW 15.3 H Absolute Neutrophils 8.4 H Chloride 108 H Creatine Kinase 217 H - EKG Interpretation by Me Additional EKG results interpreted by me: EKG demonstrates normal sinus rhythm with a ventricular rate of 92 bpm, normal axis, QTC 461 ms, no evidence of acute ischemia on this EKG, as is compared with prior EKG from 07/10/2018, without significant change. Critical Care Note - Critical Care Note Total time excluding time spent on procedures (mins): 38 Comments: Critical care time 38 minutes exclusive from separate billable procedures for a patient requiring complex medical decision making, and high potential for clinical deterioration. Time spent obtaining history from patient or surrogate, discussions with consultants, development of treatment plan with patient or surrogate, evaluation of patient's response to treatment, examination of patient , ordering and performing treatments and interventions, ordering and review of laboratory studies, re-evaluation of patient's condition, ordering and review of radiographic studies and review of old charts Discharge - Discharge Clinical Impression: SVT (supraventricular tachycardia) Condition: Stable Disposition: HOME, SELF-CARE Instructions: Paroxysmal Supraventricular Tachycardia ([facility]) Additional Instructions: Please return to the emergency department if you have any worsening, or concern of your symptoms. Please return to the emergency department if you develop chest pain, difficulty breathing, severe abdominal pain, or ongoing vomiting. Please follow-up with your primary care physician in 2-3 days and any other recommended physicians. If prescribed, take all medications as directed. If you have any questions or concerns do not hesitate to return the emergency department for evaluation. Referrals: PRANAV HENDRICKS MD [Primary Care Provider] - Follow up tomorrow
[2018-07-25 03:01] LABS: ABSOLUTE BASOPHILS # (AUTO) 0.2 10^3/uL (0.0-0.2); ABSOLUTE EOSINOPHILS # (AUTO) 0.2 10^3/uL (0.0-0.6); ABSOLUTE LYMPHOCYTES (AUTO) 2.9 10^3/uL (0.5-4.7); ABSOLUTE MONOCYTES (AUTO) 0.7 10^3/uL (0.1-1.4); ABSOLUTE NEUT (AUTO) 8.4 10^3/uL (1.7-8.2); BASOPHILS % (AUTO) 1.4 % (0-2); HEMATOCRIT 39.6 % (36.0-47.0); HEMOGLOBIN 13.1 g/dL (12.0-15.5); LYMPHOCYTES % (AUTO) 23.5 % (13-45); MEAN CORPUSCULAR HEMOGLOBIN 31.5 pg (27.0-33.4); MEAN CORPUSCULAR HGB CONC 33.1 g/dL (32.0-36.0); MEAN CORPUSCULAR VOLUME 95 fl (80-97); MONOCYTES % (AUTO) 5.4 % (3-13); PLATELET COUNT 245 10^3/uL (150-450); RED BLOOD COUNT 4.16 10^6/uL (3.72-5.28); RED CELL DISTRIBUTION WIDTH 15.3 % (11.5-14.0); SEGMENTED NEUTROPHILS % (AUTO) 67.7 % (42-78); TOTAL CELLS COUNTED % (AUTO) 100 %; WHITE BLOOD COUNT 12.4 10^3/uL (4.0-10.5)
[2018-07-25 03:11] LABS: INTERNATIONAL RATION (INR) 0.88; PROTHROMBIN TIME 12.4 SEC (11.4-15.4)
[2018-07-25 03:22] LABS: ALANINE AMINOTRANSFERASE 29 U/L (9-52); ALBUMIN 3.7 g/dL (3.5-5.0); ALKALINE PHOSPHATASE 100 U/L (38-126); ANION GAP 9 (5-19); ASPARTATE AMINO TRANSFERASE 33 U/L (14-36); BILIRUBIN,DIRECT 0.3 mg/dL (0.0-0.4); BILIRUBIN,TOTAL 0.6 mg/dL (0.2-1.3); BLOOD UREA NITROGEN 7 mg/dL (7-20); CALCIUM 9.4 mg/dL (8.4-10.2); CARBON DIOXIDE 25 mmol/L (22-30); CHLORIDE 108 mmol/L (98-107); CREATINE KINASE 217 U/L (30-135); GLUCOSE 107 mg/dL (75-110); POTASSIUM 3.9 mmol/L (3.6-5.0); SODIUM 142.3 mmol/L (137-145); TOTAL PROTEIN 6.8 g/dL (6.3-8.2)
[2018-07-25 03:34] LABS: CREATINE KINASE MB 2.03 ng/mL (<4.55)
--- NOTE | 2018-07-25 03:43 | RADIOLOGY REPORT (SQ) ---
EXAM DESCRIPTION: XR CHEST 1 VIEW COMPLETED DATE/TME: 07/25/2018 02:40 CLINICAL HISTORY: 63 years Female, palpitations COMPARISON: None. NUMBER OF VIEWS/TECHNIQUE: 1/AP FINDINGS: Increased lung volume, prominent interstitium, normal cardiac silhouette, and intact bony thorax. IMPRESSION: No acute cardiopulmonary findings.
[2018-07-25 03:44] LABS: TROPONIN I < 0.012 ng/mL
[2018-07-25] MEDS ORDERED: NORMAL SALINE 1000 ML 1,000 ML IV ONE (04:16)
[2018-07-25 05:17] VITALS: BP 109/62
--- NOTE | 2018-07-25 09:27 | EKG REPORT ---
SEVERITY:- BORDERLINE ECG - SINUS RHYTHM PROBABLE LEFT ATRIAL ABNORMALITY : Confirmed by: Milton Choudhary 25-Jul-2018 09:26:13
== END 2018-07-25 05:53 | disposition home or self-care (01) ==
LOC: ER 02:34
DX: I47.1 Supraventricular tachycardia (principal); J98.8 Other specified respiratory disorders; B48.8 Other specified mycoses; F41.9 Anxiety disorder, unspecified
CPT/HCPCS: 93005; 99291; 96360; 36415; 82553; 82550; 84443; 85025; 85610; 80053; 84484; 71045; 93010; J7030

== ENCOUNTER → 2018-09-20 | Outpatient (CLI) | payer OTHER ==
[2018-09-20 10:56] LABS: FREE T4 (FREE THYROXINE) 0.91 ng/dL (0.78-2.19)
[2018-09-20 11:10] LABS: THYROID STIMULATING HORMONE 3.42 uIU/mL (0.47-4.68)
== END ==
LOC: OD 08:57
DX: R00.2 Palpitations (principal)
CPT/HCPCS: 36415; 84439; 84443

== ENCOUNTER 2019-01-05 10:38 | Inpatient (IN) | payer OTHER ==
[2019-01-05] MEDS ORDERED: IPRATROPIUM/ALBUTEROL 0.5-2.5 MG/3 ML AMPUL NEB ONE (11:42)
[2019-01-05] MEDS ORDERED: METHYLPREDNISOLONE INJ 125 MG/2 ML SDV IV ONE (11:42)
--- NOTE | 2019-01-05 11:44 | ER Document Report ---
ED Medical Screen (RME) - General Chief Complaint: Flu Symptoms Stated Complaint: FLU LIKE SYMPTOMS Time Seen by Provider: 01/05/19 11:29 Primary Care Provider: [facility] [Primary Care Provider] - Follow up as needed Notes: Patient is a 63-year-old female that presents to the emergency department for chief complaint of shortness of breath, difficulty breathing and cough. Patient's been having symptoms for the last several days, unable to catch her breath, and having to use her CPAP at home even during the day at times. ROS: Other than noted above, the 12 point review of systems was reviewed with the patient and were negative, all pertinent findings are included in the HPI. PHYSICAL EXAMINATION: Vital signs reviewed. GENERAL: Obese female, with increased work of breathing HEAD: Atraumatic, normocephalic. EYES: Pupils equal round extraocular movements intact, conjunctiva are normal. ENT: Nares patent NECK: Normal range of motion CV: Heart regular rate and rhythm LUNGS: Increased work of breathing, conversational dyspnea, inspiratory and expiratory wheezing and rhonchi Musculoskeletal: Normal range of motion NEUROLOGICAL: Normal speech PSYCH: Normal mood, normal affect. MDM: Patient seen and examined for rapid initial assessment. Vital signs reviewed. A comprehensive ED assessment and evaluation of the patient, analysis of test results and completion of the medical decision making process will be conducted by additional ED providers. *Note is created using voice recognition software and may contain spelling, syntax or grammatical errors. TRAVEL OUTSIDE OF THE [place] IN LAST 30 DAYS: No - Related Data Allergies/Adverse Reactions: No Known Allergies Allergy (Unverified 06/02/18 09:59) Past Medical History - Past Medical History Cardiac Medical History: Reports: Hx Hypercholesterolemia Renal/ Medical History: Denies: Hx Peritoneal Dialysis GI Medical History: Reports: Hx Gastroesophageal Reflux Disease Past Surgical History: Reports: Hx Section, Other - Goiter removal from thyroid a few years ago. - Immunizations History of Influenza Vaccine for 08/2017 - 01/2018 Season: Yes Influenza Administration Date for 08/2017 - 01/2018 Season: 07/29/17 Physical Exam - Vital signs Vitals: Temp Pulse Resp BP Pulse Ox 99.1 F 66 24 H 110/70 91 L 01/05/19 10:57 01/05/19 10:57 01/05/19 10:57 01/05/19 10:57 01/05/19 10:57 Course - Vital Signs Vital signs: Temp Pulse Resp BP Pulse Ox 99.1 F 66 24 H 110/70 93 01/05/19 10:57 01/05/19 10:57 01/05/19 10:57 01/05/19 10:57 01/05/19 11:00 Doctor's Discharge - Discharge Referrals: [facility] [Primary Care Provider] - Follow up as needed
[2019-01-05 12:28] LABS: A TYPE INFLUENZA AG NEGATIVE (NEGATIVE); B INFLUENZA AG NEGATIVE (NEGATIVE)
[2019-01-05 12:38] LABS: ABSOLUTE LYMPHOCYTES (AUTO) 2.3 10^3/uL (0.5-4.7); ABSOLUTE MONOCYTES (AUTO) 1.1 10^3/uL (0.1-1.4); ABSOLUTE NEUT (AUTO) 6.7 10^3/uL (1.7-8.2); BASOPHILS % (AUTO) 0.4 % (0-2); EOSINOPHILS % (AUTO) 0.4 % (0-6); HEMATOCRIT 43.3 % (36.0-47.0); HEMOGLOBIN 14.6 g/dL (12.0-15.5); LYMPHOCYTES % (AUTO) 22.4 % (13-45); MEAN CORPUSCULAR HEMOGLOBIN 31.6 pg (27.0-33.4); MEAN CORPUSCULAR HGB CONC 33.6 g/dL (32.0-36.0); MEAN CORPUSCULAR VOLUME 94 fl (80-97); MONOCYTES % (AUTO) 10.7 % (3-13); PLATELET COUNT 191 10^3/uL (150-450); RED BLOOD COUNT 4.61 10^6/uL (3.72-5.28); RED CELL DISTRIBUTION WIDTH 14.9 % (11.5-14.0); SEGMENTED NEUTROPHILS % (AUTO) 66.1 % (42-78); TOTAL CELLS COUNTED % (AUTO) 100 %; WHITE BLOOD COUNT 10.1 10^3/uL (4.0-10.5)
[2019-01-05 12:57] LABS: ALANINE AMINOTRANSFERASE 28 U/L (9-52); ALKALINE PHOSPHATASE 114 U/L (38-126); ANION GAP 8 (5-19); ASPARTATE AMINO TRANSFERASE 35 U/L (14-36); BILIRUBIN,DIRECT 0.2 mg/dL (0.0-0.4); BILIRUBIN,TOTAL 0.7 mg/dL (0.2-1.3); BLOOD UREA NITROGEN 12 mg/dL (7-20); CALCIUM 8.8 mg/dL (8.4-10.2); CARBON DIOXIDE 29 mmol/L (22-30); CHLORIDE 100 mmol/L (98-107); GLUCOSE 101 mg/dL (75-110); POTASSIUM 4.3 mmol/L (3.6-5.0); SODIUM 137.1 mmol/L (137-145); TOTAL PROTEIN 6.8 g/dL (6.3-8.2)
--- NOTE | 2019-01-05 13:09 | EKG REPORT ---
SEVERITY:- BORDERLINE ECG - SINUS RHYTHM PROBABLE LEFT ATRIAL ABNORMALITY : Confirmed by: Gael Bennett MD 05-Jan-2019 13:09:12
--- NOTE | 2019-01-05 13:19 | RADIOLOGY REPORT (SQ) ---
EXAM DESCRIPTION: CHEST SINGLE VIEW COMPLETED DATE/TIME: 01/05/2019 1:07 pm REASON FOR STUDY: cough, shortness of breath COMPARISON: Chest films 06/02/2018, 07/25/2018 CT chest 06/06/2018 EXAM PARAMETERS: NUMBER OF VIEWS: One view. TECHNIQUE: Single frontal radiographic view of the chest acquired. RADIATION DOSE: NA LIMITATIONS: None. FINDINGS: LUNGS AND PLEURA: Pulmonary vascular prominence is present with mild perihilar pulmonary e magda. No pleural effusion or pneumothorax. Old calcified granuloma right lung apex, benign. MEDIASTINUM AND HILAR STRUCTURES: No masses. Contour normal. HEART AND VASCULAR STRUCTURES: Heart normal in size. Normal vasculature. BONES: No acute findings. HARDWARE: None in the chest. OTHER: No other significant finding. IMPRESSION: Fluid overload or congestive failure with pulmonary vascular congestion and mild pulmona ry edema TECHNICAL DOCUMENTATION: JOB ID: [id number] [employer]- All Rights Reserved Reading location - IP/workstation name: [email or web address]
[2019-01-05] MEDS ORDERED: ALBUTEROL SULFATE 0.083% NEB 2.5 MG/3 ML AMPUL NEB ONE (14:16)
--- NOTE | 2019-01-05 14:38 | ER Document Report ---
ED General - General Chief Complaint: Flu Symptoms Stated Complaint: FLU LIKE SYMPTOMS Time Seen by Provider: 01/05/19 11:29 Notes: Patient is a 63-year-old female who presents emergency department with a chief complaint of flulike symptoms. She states that she has been having some difficulty breathing and she has had a cough for the past 3 days. She wears a CPAP at home, and states that she has been using it to help catch her breath during the day. She is also had some fever and chills. She states that she has been in contact with her daughter and grandchildren and they were sick. She has a past medical history of pneumonia (fungal per ), reactive airway disease, and hypertension. She does not normally require oxygen, but she is requiring oxygen here in the emergency department. She is a current everyday smoker and smokes 4 cigarettes a day. TRAVEL OUTSIDE OF THE [place] IN LAST 30 DAYS: No - Related Data Allergies/Adverse Reactions: No Known Allergies Allergy (Unverified 06/02/18 09:59) Past Medical History - Social History Smoking Status: Former Smoker Chew tobacco use (# tins/day): No Frequency of alcohol use: None Drug Abuse: None Family History: Reviewed & Not Pertinent, COPD Patient has suicidal ideation: No Patient has homicidal ideation: No - Past Medical History Cardiac Medical History: Reports: Hx Atrial Fibrillation, Hx Hypercholesterolemia Renal/ Medical History: Denies: Hx Peritoneal Dialysis GI Medical History: Reports: Hx Gastroesophageal Reflux Disease Past Surgical History: Reports: Hx Section, Hx Thyroid Surgery, Other - Goiter removal from thyroid a few years ago. Review of Systems - Review of Systems Notes: REVIEW OF SYSTEMS: CONSTITUTIONAL : Denies recent illness. Denies recent unintentional weight loss. Denies fever, chills, or sweats. EENT: Denies eye, ear, throat, or mouth pain, discharge, or symptoms. Denies nasal or sinus congestion. CARDIOVASCULAR: Denies chest pain. RESPIRATORY: See HPI GASTROINTESTINAL: Denies nausea, vomiting, and diarrhea. Denies abdominal pain. Denies constipation. GENITOURINARY: Denies difficulty urinating, burning, blood in urine, urgency or frequency. MUSCULOSKELETAL: Denies neck and back pain. Denies joint pain or swelling. SKIN: Denies rash, itchiness, or lesions HEMATOLOGIC : Denies easy bruising or bleeding. LYMPHATIC: Denies swollen, painful, enlarged glands. NEUROLOGICAL: Denies no numbness or tingling denies weakness. Denies headache. Denies altered mental status. Denies alteration in speech. PSYCHIATRIC: Denies stress, anxiety, alteration in sleep patterns, or depression. All other systems reviewed and negative. Physical Exam - Vital signs Vitals: Temp Pulse Resp BP Pulse Ox 99.1 F 66 24 H 110/70 91 L 01/05/19 10:57 01/05/19 10:57 01/05/19 10:57 01/05/19 10:57 01/05/19 10:57 - Notes Notes: PHYSICAL EXAMINATION: GENERAL: Appears well, healthy, well-nourished, no acute distress. HEAD: Normocephalic, atraumatic. EYES: PERRL, conjunctiva normal, all extraocular movements intact, sclera nonicteric ENT: Moist mucous membranes. NECK: Supple, no noticeable swelling, redness, rash. Normal range of motion. LUNGS: Expiratory wheezes noted throughout. CARDIOVASCULAR: S1-S2, regular rate, regular rhythm. Radial pulses 2+, normal. ABDOMEN: Normoactive bowel sounds. Soft, nontender, no guarding, no rebound tenderness, and no masses palpated. EXTREMITIES: Normal strength and range of motion, no pitting or edema. No cyanosis. NEUROLOGICAL: Moves all extremities upon command. Strength 5/5 in all extremities. PSYCH: Normal mood, normal affect. SKIN: Warm, dry. No rash, lesions, ulcerations noted. Normal skin turgor. Course - Re-evaluation Re-evalutation: 01/05/19 14:44 Patient's chest x-ray is suggestive of CHF or pulmonary edema. I have added a BNP to her labs to verify. She also does have some wheezes noted to bilateral lungs. I turned down her oxygen and her oxygen saturation decreased to 91%. Patient's PO2 on venous blood gas was 71 on 4 L nasal cannula. She is hypoxic. Since she does not normally wear oxygen, she will eventually need to be admitted. CBC and CMP are unremarkable. 01/05/19 15:29 I am still waiting on the BNP results. I have attempted to call Dr. Bustillo, the hospitalist. I will attempt to call back later. 01/05/19 15:[address] Bustillo and the patient will be admitted by Kaity Tyson NP. Shortly after I called Kaity Tyson NP and gave report to her should the patient will be admitted to med telemetry floor. - Vital Signs Vital signs: Temp Pulse Resp BP Pulse Ox 98.1 F 67 20 116/48 L 93 01/05/19 17:47 01/05/19 22:44 01/05/19 23:03 01/05/19 17:47 01/05/19 23:03 - Laboratory Result Diagrams: 01/05/19 12:11 01/05/19 12:11 Laboratory results interpreted by me: 01/05/19 12:11 RDW 14.9 H Discharge - Discharge Clinical Impression: Hypoxia, Shortness of breath Condition: Fair Disposition: ADMITTED INPATIENT Admitting Provider: Hospitalist Unit Admitted: Telemetry
[2019-01-05] MEDS ORDERED: FUROSEMIDE INJ/PF 20 MG/2 ML SDV IV ONE (15:38)
[2019-01-05] MEDS ORDERED: ACETAMINOPHEN 325 MG TABLET PO PRN (17:00)
[2019-01-05] MEDS ORDERED: BUDESONIDE/FORMOTEROL 160-4.5 MCG 60 PUFF/6 GM MDI IH PRN (17:04)
[2019-01-05] MEDS ORDERED: ENOXAPARIN SODIUM INJ 40 MG/0.4 ML DISP.SYRIN SUBCUT ONE (19:00)
--- NOTE | 2019-01-05 20:41 | PDOC H&P ---
History of Present Illness Admission Date/PCP: 01/05/19 15:44 [facility] Patient complains of: SHORTNESS OF BREATH History of Present Illness: PRISCA ABREU is a 63 year old female with a PMH of AFIB (rate controlled on eliquis), HTN, HLD, PNA. She presented to the ED with a 3 day history of shortness of breath. The patient endorses recent ill contacts (daughter and grandchild). States she became ill shortly after being in contact with her family. The patient reports she used her home inhalers but they offered no relief. She spent most of yesterday using her home CPAP, which is what prompted her to come to the hospital. The patient endorses a non-productive cough. Denies fevers or chills. Upon arrival her vital signs were BP 110/70 HR 66 RR 24 SPO2 91% on RA T99.1. EKG showed NSR, to ischemia or infarct. CXR shows bilateral pulmonary vascular congestion and pulmonary edema. All laboratory studies benign, including cardiac enzymes, Pro-BNP, CBC and chemistry. Of note, the patient does not wear home O2 but required 4L NC while in the ED. Unable to wean despite lasix and nebulizer treatment. Upon assessment, the patient is resting comfortably in bed on supplemental oxygen. She is able to answer questions appropriately and speak in full sentences without pause. Wheezing was heard in all lung wagner. No central or peripheral cyanosis. S1S2. No peripheral edema or JVD. Plan to admit to the hospitalist service. Past Medical History Cardiac Medical History: Reports: Atrial Fibrillation, Hyperlipidema, Hypertension, Other - SVT Pulmonary Medical History: Reports: Pneumonia - FUNGAL PNA? 2018 GI Medical History: Reports: Gastroesophageal Reflux Disease Psychiatric Medical History: Denies: Depression Past Surgical History Past Surgical History: Reports: Section, Other - Goiter removal from thyroid a few years ago. Social History Information Source: Patient Lives with: Family Smoking Status: Never Smoker Frequency of Alcohol Use: None Hx Recreational Drug Use: No Drugs: None Hx Prescription Drug Abuse: No - Advance Directive Resuscitation Status: Full Code Family History Family History: Reviewed & Not Pertinent, COPD Parental Family History Reviewed: Yes Children Family History Reviewed: Yes Sibling(s) Family History Reviewed.: Yes Medication/Allergy Home Medications: Apixaban [Eliquis 5 mg Tablet] 5 mg PO Q12 01/05/19 Atorvastatin Calcium [Lipitor 40 mg Tablet] 40 mg PO QHS 01/05/19 Budesonide/Formoterol Fumarate [Symbicort Hfa 160-4.5 Mcg Inhaler 6 gm] 2 puff IH .ASDIR PRN 01/05/19 Calcium/Magnesium/Zinc [Ifmkgqp-Itpbqgcpg-Rtco Tablet] 2 each PO DAILY 01/05/19 Cholecalciferol (Vitamin D3) [Vitamin D3 5000 unit Capsule] 5,000 unit PO DAILY 01/05/19 Escitalopram Oxalate [Lexapro 10 mg Tablet] 10 mg PO QHS 01/05/19 Flecainide Acetate [Tambocor 100 Mg Tablet] 50 mg PO BID 01/05/19 Fluticasone Propionate [Flonase Nasal [place] 50 Mcg/[place] 16 gm] 1 spray NASL DAILY 01/05/19 Levalbuterol Tartrate [Levalbuterol Tartrate Hfa] 1 - 2 puff IH Q6 01/05/19 Linaclotide [Linzess] 290 mcg PO QHS 01/05/19 Metoprolol Succinate [Toprol Xl 25 mg Tab.sr] 25 mg PO DAILY 01/05/19 Omeprazole 20 mg PO DAILY 01/05/19 Allergies/Adverse Reactions: No Known Allergies Allergy (Unverified 06/02/18 09:59) Review of Systems All systems: reviewed and no additional remarkable complaints except as stated Physical Exam Vital Signs: Temp Pulse Resp BP Pulse Ox 98.1 F 70 15 116/48 L 95 01/05/19 17:47 01/05/19 17:47 01/05/19 17:47 01/05/19 17:47 01/05/19 17:47 Intake & Output 01/04/19 01/05/19 01/06/19 06:59 06:59 06:59 Weight 108.6 kg General appearance: PRESENT: obese Eye exam: PRESENT: conjunctiva pink, PERRLA Mouth exam: PRESENT: moist, tongue midline Neck exam: PRESENT: full ROM Respiratory exam: PRESENT: symmetrical, unlabored, wheezes Cardiovascular exam: PRESENT: RRR, +S1, +S2 Pulses: PRESENT: normal radial pulses, normal dorsalis pedis pul Vascular exam: PRESENT: normal capillary refill GI/Abdominal exam: PRESENT: soft. ABSENT: distended, tenderness Rectal exam: PRESENT: deferred Extremities exam: PRESENT: full ROM, pedal edema Musculoskeletal exam: PRESENT: ambulatory, full ROM, normal inspection Neurological exam: PRESENT: alert, awake, oriented to person, oriented to place, oriented to time, oriented to situation Psychiatric exam: PRESENT: appropriate affect Skin exam: PRESENT: dry, intact, normal color Results Laboratory Results: 01/05/19 12:11 01/05/19 12:11 01/05/19 01/05/19 12:11 12:11 WBC 10.1 RBC 4.61 Hgb 14.6 Hct 43.3 MCV 94 MCH 31.6 MCHC 33.6 RDW 14.9 H Plt Count 191 Seg Neutrophils % 66.1 Lymphocytes % 22.4 Monocytes % 10.7 Eosinophils % 0.4 Basophils % 0.4 Absolute Neutrophils 6.7 Absolute Lymphocytes 2.3 Absolute Monocytes 1.1 Absolute Eosinophils 0.0 Absolute Basophils 0.0 Sodium 137.1 Potassium 4.3 Chloride 100 Carbon Dioxide 29 Anion Gap 8 BUN 12 Creatinine 0.87 Est GFR ( Amer) > 60 Est GFR (Non-Af Amer) > 60 Glucose 101 Calcium 8.8 Total Bilirubin 0.7 AST 35 ALT 28 Alkaline Phosphatase 114 Total Protein 6.8 Albumin 4.0 01/05/19 01/05/19 01/05/19 12:11 12:11 16:08 Troponin I < 0.012 < 0.012 NT-Pro-B Natriuret Pep 143 Impressions: Chest X-Ray 01/05/19 11:41 IMPRESSION: Fluid overload or congestive failure with pulmonary vascular congestion and mild pulmonary edema Status: Imported from PACS Assessment & Plan - Diagnosis (1) Pulmonary edema Qualifiers: Chronicity: acute Qualified Code(s): J81.0 - Acute pulmonary edema Is this a current diagnosis for this admission?: Yes Plan: Present on CXR Unclear etiology at this time BNP is only 143, CHF unlikely. Renal function normal. No peripheral edema. does not appear volume overloaded. Plan to lasix NOW and again in AM - will reassess respiratory status following diuresis Plan for echo tomorrow (2) Hypoxia Is this a current diagnosis for this admission?: Yes Plan: secondary to pulmonary edema requiring supplemental o2 via nasal cannula plan for diuresis wean o2 as tolerated Scheduled solumedrol PRN nebulizer treatments (3) HTN (hypertension) Qualifiers: Hypertension type: essential hypertension Qualified Code(s): I10 - Essential (primary) hypertension Is this a current diagnosis for this admission?: Yes Plan: PMH HTN Resume home dose metoprolol, (4) Hyperlipidemia Qualifiers: Is this a current diagnosis for this admission?: Yes Plan: PMH HLD Continue home dose statin (5) Morbid obesity Is this a current diagnosis for this admission?: Yes Plan: Weight management with diet - Time Time Spent: 30 to 50 Minutes Medications reviewed and adjusted accordingly: Yes Anticipated discharge: Home Within: within 48 hours - Inpatient Certification Based on my medical assessment, after consideration of the patient's comorbidities, presenting symptoms, or acuity I expect that the services needed warrant INPATIENT care.: Yes I certify that my determination is in accordance with my understanding of Medicare's requirements for reasonable and necessary INPATIENT services [42 CFR 412.3e].: Yes Medical Necessity: Need for Nebulizer Therapy and Monitoring of Response, Risk of Complication if Not Cared For in Hospital
[2019-01-05] MEDS ORDERED: IPRATROPIUM/ALBUTEROL 0.5-2.5 MG/3 ML AMPUL NEB PRN (20:50)
[2019-01-05] MEDS ORDERED: HYDROCORTISONE SOD SUCCINATE INJ/PF 100 MG/2 ML SDV ONE (21:47)
[2019-01-05] MEDS: ESCITALOPRAM OXALATE 10 MG TABLET PO SCH (21:50)
[2019-01-05] MEDS: ATORVASTATIN CALCIUM 40 MG TABLET PO SCH (21:51)
[2019-01-05] MEDS: FAMOTIDINE 20 MG TABLET PO SCH (21:51)
[2019-01-05] MEDS: APIXABAN 5 MG TABLET PO SCH (21:51)
[2019-01-05] MEDS: FLECAINIDE ACETATE 100 MG TABLET PO SCH (21:53)
[2019-01-05] MEDS ORDERED: IPRATROPIUM BROMIDE 0.02% NEB 0.5 MG/2.5 ML AMPUL NEB ONE (22:15)
[2019-01-05] MEDS ORDERED: METHYLPREDNISOLONE INJ 40 MG/1 ML SDV IV ONE (22:15)
[2019-01-05] MEDS ORDERED: LEVALBUTEROL HCL NEB 1.25 MG/3 ML AMPUL NEB PRN (22:45)
[2019-01-06 04:22] LABS: ABSOLUTE BASOPHILS # (AUTO) 0.1 10^3/uL (0.0-0.2); ABSOLUTE LYMPHOCYTES (AUTO) 1.4 10^3/uL (0.5-4.7); ABSOLUTE MONOCYTES (AUTO) 0.5 10^3/uL (0.1-1.4); ABSOLUTE NEUT (AUTO) 9.7 10^3/uL (1.7-8.2); BASOPHILS % (AUTO) 0.4 % (0-2); EOSINOPHILS % (AUTO) 0.4 % (0-6); HEMATOCRIT 39.5 % (36.0-47.0); HEMOGLOBIN 13.5 g/dL (12.0-15.5); LYMPHOCYTES % (AUTO) 12.2 % (13-45); MEAN CORPUSCULAR HGB CONC 34.3 g/dL (32.0-36.0); MEAN CORPUSCULAR VOLUME 93 fl (80-97); MONOCYTES % (AUTO) 4.4 % (3-13); PLATELET COUNT 167 10^3/uL (150-450); RED BLOOD COUNT 4.24 10^6/uL (3.72-5.28); RED CELL DISTRIBUTION WIDTH 14.5 % (11.5-14.0); SEGMENTED NEUTROPHILS % (AUTO) 82.6 % (42-78); TOTAL CELLS COUNTED % (AUTO) 100 %; WHITE BLOOD COUNT 11.7 10^3/uL (4.0-10.5)
[2019-01-06 04:34] LABS: ANION GAP 7 (5-19); BLOOD UREA NITROGEN 15 mg/dL (7-20); CALCIUM 8.7 mg/dL (8.4-10.2); CARBON DIOXIDE 27 mmol/L (22-30); CHLORIDE 102 mmol/L (98-107); CREATINE KINASE 214 U/L (30-135); GLUCOSE 175 mg/dL (75-110); PHOSPHORUS 3.2 mg/dL (2.5-4.5); POTASSIUM 4.2 mmol/L (3.6-5.0); SODIUM 135.5 mmol/L (137-145); TRIGLYCERIDES 73 mg/dL (<150)
[2019-01-06 04:45] LABS: DIRECT LDL 94 mg/dL (<100); NT PRO BNP 123 pg/mL (5-900)
[2019-01-06 04:51] LABS: TROPONIN I < 0.012 ng/mL
[2019-01-06] MEDS ORDERED: FUROSEMIDE INJ/PF 40 MG/4 ML SDV IV ONE (05:00)
[2019-01-06] MEDS: METHYLPREDNISOLONE INJ 40 MG/1 ML SDV IV SCH ×2 (05:57→14:02)
[2019-01-06] MEDS: IPRATROPIUM BROMIDE 0.02% NEB 0.5 MG/2.5 ML AMPUL NEB SCH ×3 (08:31→19:42)
[2019-01-06] MEDS: FAMOTIDINE 20 MG TABLET PO SCH ×2 (09:24→22:29)
[2019-01-06] MEDS: APIXABAN 5 MG TABLET PO SCH ×2 (09:24→22:28)
[2019-01-06] MEDS: FLECAINIDE ACETATE 100 MG TABLET PO SCH ×2 (09:25→22:29)
[2019-01-06] MEDS: METOPROLOL SUCCINATE 25 MG TAB.SR.24H PO SCH (09:28)
[2019-01-06] MEDS: ENOXAPARIN SODIUM INJ 40 MG/0.4 ML DISP.SYRIN SUBCUT SCH (09:28)
[2019-01-06] MEDS: ONDANSETRON 4 MG TAB.RAPDIS PO PRN (11:08)
--- NOTE | 2019-01-06 11:24 | RADIOLOGY REPORT (SQ) ---
EXAM DESCRIPTION: CHEST 2 VIEWS COMPLETED DATE/TIME: 01/06/2019 11:06 am REASON FOR STUDY: HYPOXIA COMPARISON: Previous day. EXAM PARAMETERS: NUMBER OF VIEWS: two views TECHNIQUE: Digital Frontal and Lateral radiographic views of the chest acquired. RADIATION DOSE: NA LIMITATIONS: none FINDINGS: LUNGS AND PLEURA: Chronic interstitial pattern. Calcified granuloma right upper lobe. Pa rtial silhouetting left heart border unchanged. No effusions. MEDIASTINUM AND HILAR STRUCTURES: No masses or contour abnormalities. HEART AND VASCULAR STRUCTURES: Heart normal size. No evidence for failure. BONES: No acute findings. HARDWARE: None in the chest. OTHER: No other significant finding. IMPRESSION: Atelectasis or developing pneumonia in the lingula. TECHNICAL DOCUMENTATION: JOB ID: [id number] [employer]- All Rights Reserved Reading location - IP/workstation name: [email or web address]
--- NOTE | 2019-01-06 16:49 | PDOC PROGRESS REPORT ---
Subjective Progress Note for:: 01/06/19 Subjective:: Admitted overnight. Per discussion with patient she was starting to feel better after hospitalization last month. Her daughter and grandson were visiting recently and they both had a viral infection. She thinks she might have picked up an illness from them. Today, she thinks her breathing is a little better. Still requiring supplemental O2 which she does use at baseline. Denies fevers, chills, cough. Tolerating PO. No other complaints. Reason For Visit: PULMONARY EDEMA,HYPOXIA Physical Exam Vital Signs: Temp Pulse Resp BP Pulse Ox 98.0 F 77 16 127/56 H 92 01/06/19 11:31 01/06/19 14:10 01/06/19 14:10 01/06/19 11:31 01/06/19 14:10 Intake & Output 01/05/19 01/06/19 01/07/19 06:59 06:59 06:59 Intake Total 266 Balance 266 Weight 109.9 kg General appearance: PRESENT: no acute distress, cooperative, morbidly obese Mouth exam: PRESENT: moist Respiratory exam: PRESENT: unlabored, wheezes - Scattered expiratory wheezes. ABSENT: tachypnea Cardiovascular exam: PRESENT: +S1, +S2. ABSENT: tachycardia GI/Abdominal exam: PRESENT: soft. ABSENT: tenderness Neurological exam: PRESENT: alert, awake, CN II-XII grossly intact Psychiatric exam: PRESENT: appropriate affect, normal mood Skin exam: PRESENT: dry, intact Results Laboratory Results: 01/06/19 04:13 01/06/19 04:13 01/06/19 01/06/19 01/06/19 04:13 04:13 04:13 WBC 11.7 H RBC 4.24 Hgb 13.5 Hct 39.5 MCV 93 MCH 32.0 MCHC 34.3 RDW 14.5 H Plt Count 167 Seg Neutrophils % 82.6 H Lymphocytes % 12.2 L Monocytes % 4.4 Eosinophils % 0.4 Basophils % 0.4 Absolute Neutrophils 9.7 H Absolute Lymphocytes 1.4 Absolute Monocytes 0.5 Absolute Eosinophils 0.0 Absolute Basophils 0.1 Sodium 135.5 L Potassium 4.2 Chloride 102 Carbon Dioxide 27 Anion Gap 7 BUN 15 Creatinine 0.71 Est GFR ( Amer) > 60 Est GFR (Non-Af Amer) > 60 Glucose 175 H Calcium 8.7 Phosphorus 3.2 Magnesium 2.3 Triglycerides 73 Cholesterol 142.40 LDL Cholesterol Direct 94 VLDL Cholesterol 15.0 HDL Cholesterol 38 L TSH 0.52 01/05/19 01/05/19 01/05/19 12:11 12:11 16:08 Creatine Kinase Troponin I < 0.012 < 0.012 NT-Pro-B Natriuret Pep 143 01/05/19 01/05/19 01/06/19 22:04 22:04 04:13 Creatine Kinase 166 H 214 H Troponin I < 0.012 NT-Pro-B Natriuret Pep 01/06/19 01/06/19 01/06/19 04:13 10:04 10:04 Creatine Kinase 256 H Troponin I < 0.012 < 0.012 NT-Pro-B Natriuret Pep 123 Impressions: Chest X-Ray 01/06/19 06:00 IMPRESSION: Atelectasis or developing pneumonia in the lingula. Assessment & Plan - Diagnosis (1) Acute respiratory failure with hypoxia Is this a current diagnosis for this admission?: Yes Plan: Likely viral URI which exacerbated underlying COPD and CHF - Continue supportive care with breathing treatments - REceived IV lasix on 01/05 and 01/06. CXR and exam does not reveal pulmonary edema so will not give additional doses for now - D/c IV steroids and transitioned to Prednisone 40mg daily * 3 additional days - Encouraged to get OOB and use incentive spirometry (2) Smoking 1/2 pack a day or less Is this a current diagnosis for this admission?: Yes Plan: Patient has cut back on her smoking and is down to 4 cigarretes daily - Congratulated pt on her success - Encouraged her to continue working towards full abstinence (3) HTN (hypertension) Qualifiers: Hypertension type: essential hypertension Qualified Code(s): I10 - Essential (primary) hypertension Is this a current diagnosis for this admission?: Yes (4) Pulmonary edema Qualifiers: Chronicity: acute Qualified Code(s): J81.0 - Acute pulmonary edema Is this a current diagnosis for this admission?: Yes Plan: Per above. Questions CHF exacerbation - Will be helpful to obtain [facility]TE records. (5) Morbid obesity Is this a current diagnosis for this admission?: Yes Plan: Weight loss with healthy diet and exercise encouraged - Time Time Spent with patient: Less than 15 minutes Smoking Cessation Education: 3 to 10 minutes Medications reviewed and adjusted accordingly: Yes Anticipated discharge: Home Within: within 24 hours, within 48 hours
[2019-01-06] MEDS: ESCITALOPRAM OXALATE 10 MG TABLET PO SCH (22:28)
[2019-01-06] MEDS: ATORVASTATIN CALCIUM 40 MG TABLET PO SCH (22:29)
[2019-01-07 05:25] LABS: ABSOLUTE BASOPHILS # (AUTO) 0.1 10^3/uL (0.0-0.2); ABSOLUTE LYMPHOCYTES (AUTO) 2.4 10^3/uL (0.5-4.7); ABSOLUTE MONOCYTES (AUTO) 0.8 10^3/uL (0.1-1.4); ABSOLUTE NEUT (AUTO) 11.2 10^3/uL (1.7-8.2); BASOPHILS % (AUTO) 0.6 % (0-2); HEMATOCRIT 38.3 % (36.0-47.0); HEMOGLOBIN 12.9 g/dL (12.0-15.5); LYMPHOCYTES % (AUTO) 16.5 % (13-45); MEAN CORPUSCULAR HEMOGLOBIN 31.5 pg (27.0-33.4); MEAN CORPUSCULAR HGB CONC 33.7 g/dL (32.0-36.0); MEAN CORPUSCULAR VOLUME 93 fl (80-97); MONOCYTES % (AUTO) 5.3 % (3-13); PLATELET COUNT 191 10^3/uL (150-450); RED CELL DISTRIBUTION WIDTH 14.3 % (11.5-14.0); SEGMENTED NEUTROPHILS % (AUTO) 77.6 % (42-78); TOTAL CELLS COUNTED % (AUTO) 100 %; WHITE BLOOD COUNT 14.5 10^3/uL (4.0-10.5)
[2019-01-07 05:44] LABS: ANION GAP 8 (5-19); BLOOD UREA NITROGEN 18 mg/dL (7-20); CALCIUM 8.6 mg/dL (8.4-10.2); CARBON DIOXIDE 29 mmol/L (22-30); CHLORIDE 95 mmol/L (98-107); GLUCOSE 120 mg/dL (75-110); POTASSIUM 4.5 mmol/L (3.6-5.0); SODIUM 132.1 mmol/L (137-145)
[2019-01-07] MEDS: ONDANSETRON 4 MG TAB.RAPDIS PO PRN (05:46)
[2019-01-07] MEDS: IPRATROPIUM BROMIDE 0.02% NEB 0.5 MG/2.5 ML AMPUL NEB SCH (08:16)
[2019-01-07] MEDS ORDERED: PREDNISONE 20 MG TABLET PO SCH (10:00)
[2019-01-07] MEDS: METOPROLOL SUCCINATE 25 MG TAB.SR.24H PO SCH (10:13)
[2019-01-07] MEDS: APIXABAN 5 MG TABLET PO SCH (10:14)
[2019-01-07] MEDS: FAMOTIDINE 20 MG TABLET PO SCH (10:14)
[2019-01-07] MEDS: FLECAINIDE ACETATE 100 MG TABLET PO SCH (10:15)
[2019-01-07] MEDS: ENOXAPARIN SODIUM INJ 40 MG/0.4 ML DISP.SYRIN SUBCUT SCH (10:15)
[2019-01-07 12:14] VITALS: BP 113/52
--- NOTE | 2019-01-07 12:47 | XCELERA REPORT ---
[address] [address] Transthoracic Echocardiogram Report Name: PRISCA ABREU Age: 63 yrs Gender: Female : 1955 Patient Status: Inpatient Patient Location: [address] [place], [place] [address] Study Date: 01/06/2019 11:46 AM Height: 64 in Weight: 242 lb BSA: 2.1 m2 Procedure: A two-dimensional transthoracic echocardiogram with color flow and Doppler was performed. Study Quality: Poor. Poor endocardial visualisation and poor doppler interogation. Reason For Study: heart failure. valvular disease History: heart failure. valvular disease. Ordering Physician: STEVEN JIMENEZ Performed By: Sudeep Aguilera Interpretation Summary Poor endocardial visualisation and poor doppler interogation. The left ventricle is grossly normal size. Probably no LVH.Normal LVEF of 65%.Probably no regional wall motion abnormality. Doppler measurements suggest normal left ventricular diastolic function The right ventricle is not well visualized secondary to technical limitations Probably normal RA and LA sizes. There is no mitral valve stenosis. There is no mitral regurgitation noted. There is no aortic valve stenosis No aortic regurgitation is present. No tricuspid regurgitation. Unable to calculate RVSP due lack of TR jet. The pulmonic valve is not well visualized. The aortic root is not well visualized. There is no pericardial effusion. MMode/2D Measurements & Calculations RVDd: 2.2 cm LVIDd: 3.7 cm FS: 50.6 % Ao root diam: 2.6 cm IVSd: 1.1 cm LVIDs: 1.8 cm EDV(Teich): 57.6 ml Ao root area: 5.2 cm2 LVPWd: 1.0 cm ESV(Teich): 10.0 ml LA dimension: 3.1 cm EF(Teich): 82.6 % LVOT diam: 1.6 cm LVOT area: 2.0 cm2 Doppler Measurements & Calculations MV E max brian: MV P1/2t max brian: Ao V2 max: LV V1 max P.7 cm/sec 120.8 cm/sec 139.8 cm/sec 4.0 mmHg MV A max brian: MV P1/2t: 74.7 msec Ao max PG: LV V1 max: 89.3 cm/sec MVA(P1/2t): 2.9 cm2 7.8 mmHg 100.2 cm/sec MV E/A: 1.2 MV dec slope: MELVIN(V,D): 1.4 cm2 473.6 cm/sec2 MV dec time: 0.19 sec PA V2 max: MV P1/2t-pr_phl: 99.1 cm/sec 74.7 msec PA max P.9 mmHg Left Ventricle The left ventricle is grossly normal size. Probably no LVH.Normal LVEF of 65%.Probably no regional wall motion abnormality. Doppler measurements suggest normal left ventricular diastolic function. Right Ventricle The right ventricle is not well visualized secondary to technical limitations. Atria Probably normal RA and LA sizes. Mitral Valve There is no mitral valve stenosis. There is no mitral regurgitation noted. Aortic Valve The aortic valve is not well visualized secondary to technical limitations. There is no aortic valve stenosis. No aortic regurgitation is present. Tricuspid Valve There is no tricuspid stenosis. No tricuspid regurgitation. Unable to calculate RVSP due lack of TR jet. Pulmonic Valve The pulmonic valve is not well visualized. Great Vessels The aortic root is not well visualized. Effusions There is no pericardial effusion. : STEVEN JIMENEZ > Keiry Rodney
--- NOTE | 2019-01-07 12:50 | PDOC DISCHARGE SUMMARY ---
General - Admit/Disc Date/PCP Admission Date/Primary Care Provider: 01/05/19 15:44 [facility] Discharge Date: 01/07/19 - Discharge Diagnosis (1) Acute respiratory failure with hypoxia Is this a current diagnosis for this admission?: Yes Summary: No overnight events. Feeling better. Off supplemental O2. Ambulating hallways, fatigued but tolerating well without desaturation. OK with plan to discharge to home. AFR: Likely viral URI which exacerbated underlying COPD and CHF Inpatient management - Received supportive care with breathing treatments - REceived 2 doses of IV lasix on 01/05 and 01/06. Euvolemic at discharge - Started on IV steroids and transitioned to Prednisone 40mg daily on 01/05 OUtpatient management - Continue Prednisone for 2 additional days - Good hand hygiene and mask around sick contacts - Can use OTC mucinex to loosen sputum; robitussin at night for cough suppression (2) Smoking 1/2 pack a day or less Is this a current diagnosis for this admission?: Yes Summary: Encouraged to cut back on her smoking; currently 4 cigarretes daily - Congratulated pt on her success - Encouraged her to continue working towards full abstinence (3) HTN (hypertension) Is this a current diagnosis for this admission?: Yes Summary: Normotensive at discharge (4) Pulmonary edema Is this a current diagnosis for this admission?: Yes Summary: PEr above. Received IV lasix earlier in admission (5) Morbid obesity Is this a current diagnosis for this admission?: Yes Summary: Weight loss with healthy diet and exercise encouraged - Additional Information Resuscitation Status: Full Code Discharge Diet: Cardiac Discharge Activity: Activity As Tolerated, Balance Activity w/Rest Prescriptions: Prednisone [Deltasone 20 mg Tablet] 40 mg PO DAILY 2 Days #2 tablet Home Medications: Apixaban [Eliquis 5 mg Tablet] 5 mg PO Q12 01/05/19 Atorvastatin Calcium [Lipitor 40 mg Tablet] 40 mg PO QHS 01/05/19 Budesonide/Formoterol Fumarate [Symbicort HFA 160-4.5 mcg Inhaler 6 gm] 2 puff IH .ASDIR PRN 01/05/19 Calcium/Magnesium/Zinc [Szopclo-Nobepayob-Lfrt Tablet] 2 each PO DAILY 01/05/19 Cholecalciferol (Vitamin D3) [Vitamin D3 5000 unit Capsule] 5,000 unit PO DAILY 01/05/19 Escitalopram Oxalate [Lexapro 10 mg Tablet] 10 mg PO QHS 01/05/19 Flecainide Acetate [Tambocor 100 mg Tablet] 50 mg PO BID 01/05/19 Fluticasone Propionate [Flonase Nasal [place] 50 Mcg/[place] 16 gm] 1 spray NASL DAILY 01/05/19 Levalbuterol Tartrate [Levalbuterol Tartrate Hfa] 1 - 2 puff IH Q6 01/05/19 Linaclotide [Linzess] 290 mcg PO QHS 01/05/19 Metoprolol Succinate [Toprol Xl 25 mg Tab.sr] 25 mg PO DAILY 01/05/19 Omeprazole 20 mg PO DAILY 01/05/19 Prednisone [Deltasone 20 mg Tablet] 40 mg PO DAILY 2 Days #2 tablet 01/07/19 History of Present Illness History of Present Illness: PRISCA ABREU is a 63 year old female with a PMH of AFIB (rate controlled on eliquis), HTN, HLD, PNA. She presented to the ED with a 3 day history of shortness of breath. The patient endorses recent ill contacts (daughter and grandchild). States she became ill shortly after being in contact with her family. The patient reports she used her home inhalers but they offered no relief. She spent most of yesterday using her home CPAP, which is what prompted her to come to the hospital. The patient endorses a non-productive cough. Denies fevers or chills. Upon arrival her vital signs were BP 110/70 HR 66 RR 24 SPO2 91% on RA T99.1. EKG showed NSR, to ischemia or infarct. CXR shows bilateral pulmonary vascular congestion and pulmonary edema. All laboratory studies benign, including cardiac enzymes, Pro-BNP, CBC and chemistry. Of note, the patient does not wear home O2 but required 4L NC while in the ED. Unable to wean despite lasix and nebulizer treatment. Upon assessment, the patient is resting comfortably in bed on supplemental oxygen. She is able to answer questions appropriately and speak in full sentences without pause. Wheezing was heard in all lung wagner. No central or peripheral cyanosis. S1S2. No peripheral edema or JVD. Admitted to the hospitalist service. Physical Exam Vital Signs: Temp Pulse Resp BP Pulse Ox 97.9 F 64 17 119/67 97 01/07/19 11:40 01/07/19 11:40 01/07/19 11:40 01/07/19 11:40 01/07/19 11:40 Intake & Output 01/06/19 01/07/19 01/08/19 06:59 06:59 06:59 Intake Total 266 Balance 266 Weight 109.9 kg 110.6 kg General appearance: PRESENT: no acute distress, cooperative, obese Mouth exam: PRESENT: moist Respiratory exam: PRESENT: rhonchi - scattered, unlabored, wheezes - absent. ABSENT: tachypnea Cardiovascular exam: PRESENT: +S1, +S2. ABSENT: tachycardia GI/Abdominal exam: PRESENT: soft. ABSENT: tenderness Extremities exam: ABSENT: +1 edema Neurological exam: PRESENT: alert, awake, CN II-XII grossly intact Psychiatric exam: PRESENT: appropriate affect, normal mood Skin exam: PRESENT: dry, intact Results Laboratory Results: 01/07/19 05:04 01/07/19 05:04 01/07/19 01/07/19 05:04 05:04 WBC 14.5 H RBC 4.10 Hgb 12.9 Hct 38.3 MCV 93 MCH 31.5 MCHC 33.7 RDW 14.3 H Plt Count 191 Seg Neutrophils % 77.6 Lymphocytes % 16.5 Monocytes % 5.3 Eosinophils % 0.0 Basophils % 0.6 Absolute Neutrophils 11.2 H Absolute Lymphocytes 2.4 Absolute Monocytes 0.8 Absolute Eosinophils 0.0 Absolute Basophils 0.1 Sodium 132.1 L Potassium 4.5 Chloride 95 L Carbon Dioxide 29 Anion Gap 8 BUN 18 Creatinine 0.71 Est GFR ( Amer) > 60 Est GFR (Non-Af Amer) > 60 Glucose 120 H Calcium 8.6 Phosphorus 4.0 Magnesium 2.1 01/05/19 01/05/19 01/05/19 12:11 12:11 16:08 Creatine Kinase Troponin I < 0.012 < 0.012 NT-Pro-B Natriuret Pep 143 01/05/19 01/05/19 01/06/19 22:04 22:04 04:13 Creatine Kinase 166 H 214 H Troponin I < 0.012 NT-Pro-B Natriuret Pep 01/06/19 01/06/19 01/06/19 04:13 10:04 10:04 Creatine Kinase 256 H Troponin I < 0.012 < 0.012 NT-Pro-B Natriuret Pep 123 01/07/19 05:04 Creatine Kinase Troponin I NT-Pro-B Natriuret Pep 322 Impressions: Chest X-Ray 01/06/19 06:00 IMPRESSION: Atelectasis or developing pneumonia in the lingula. Qualifiers - * PATIENT BEING DISCHARGED WITH ANY OF THE FOLLOWING DIAGNOSIS: No Plan Time Spent: Less than 30 Minutes
== END 2019-01-07 12:55 | disposition home or self-care (01) | DRG 189 ==
LOC: ER 10:38 → EH 15:44 → 4N 17:45
PROVIDERS: ADMIT Hospitalist; ATTEND Hospitalist
PROC: 5A09457 Assistance with Respiratory Ventilation, 24-96 Consecutive Hours, Continuous Positive Airway Pressure (ICD-10-PCS; principal; 2019-01-05)
DX: J96.01 Acute respiratory failure with hypoxia (principal); I50.1 Left ventricular failure, unspecified; J44.9 Chronic obstructive pulmonary disease, unspecified; J06.9 Acute upper respiratory infection, unspecified; I48.91 Unspecified atrial fibrillation; E78.5 Hyperlipidemia, unspecified; K21.9 Gastro-esophageal reflux disease without esophagitis; E66.01 Morbid (severe) obesity due to excess calories; F17.210 Nicotine dependence, cigarettes, uncomplicated; I11.0 Hypertensive heart disease with heart failure; Z79.01 Long term (current) use of anticoagulants
CPT/HCPCS: 36415; 71045; 71046; 80048; 80053; 80061; 82550; 83036; 83735; 83880; 84100; 84443; 84484; 85025; 87804; 93005; 93010; 93306; 94640; 94660; 96374; 99285; J1720; J1940; J2920; J2930; J3490; J7512; J7620; S0119

== ENCOUNTER 2019-01-10 18:40 | Observation (INO) | payer OTHER ==
[2019-01-10] MEDS ORDERED: METHYLPREDNISOLONE INJ 125 MG/2 ML SDV IV ONE (19:50)
[2019-01-10] MEDS ORDERED: IPRATROPIUM/ALBUTEROL 0.5-2.5 MG/3 ML AMPUL NEB ONE ×3 (19:50→20:26)
--- NOTE | 2019-01-10 19:51 | ER Document Report ---
ED Medical Screen (RME) - General Chief Complaint: Shortness Of Breath Stated Complaint: SHORT OF BREATH,CONGESTION Time Seen by Provider: 01/10/19 19:46 Primary Care Provider: HARPER JEAN [Primary Care Provider] - Follow up as needed Notes: 63 years old female with a history of COPD, discharged from the hospital last Tuesday returns today with diffuse wheezing and difficulty in breathing. On examination had bilateral expiratory wheezes throughout the lung field TRAVEL OUTSIDE OF THE [place] IN LAST 30 DAYS: No - Related Data Allergies/Adverse Reactions: No Known Allergies Allergy (Verified 01/10/19 18:41) Past Medical History - Past Medical History Cardiac Medical History: Reports: Hx Atrial Fibrillation, Hx Hypercholesterolemia, Hx Hypertension Pulmonary Medical History: Reports: Hx Pneumonia - FUNGAL PNA? 2018 Renal/ Medical History: Denies: Hx Peritoneal Dialysis GI Medical History: Reports: Hx Gastroesophageal Reflux Disease Psychiatric Medical History: Denies: Hx Depression Past Surgical History: Reports: Hx Section, Hx Thyroid Surgery, Other - Goiter removal from thyroid a few years ago. - Immunizations History of Influenza Vaccine for 08/2017 - 01/2018 Season: Yes Influenza Administration Date for 08/2017 - 01/2018 Season: 07/29/17 Physical Exam - Vital signs Vitals: Temp Pulse Resp BP Pulse Ox 98.7 F 68 18 153/74 H 91 L 01/10/19 18:52 01/10/19 18:52 01/10/19 18:52 01/10/19 18:52 01/10/19 18:52 Course - Vital Signs Vital signs: Temp Pulse Resp BP Pulse Ox 98.7 F 68 18 153/74 H 91 L 01/10/19 18:52 01/10/19 18:52 01/10/19 18:52 01/10/19 18:52 01/10/19 18:52 Doctor's Discharge - Discharge Referrals: HARPER JEAN [Primary Care Provider] - Follow up as needed
[2019-01-10] MEDS: ALBUTEROL SULFATE 0.083% NEB 2.5 MG/3 ML AMPUL NEB SCH ×2 (20:26→20:36)
[2019-01-10 20:48] LABS: VENOUS BLOOD BASE EXCESS 3.3 mmol/L; VENOUS BLOOD HCO3 28.2 mmol/L (20-32); VENOUS BLOOD PCO2 43.5 mmHg (35-63); VENOUS BLOOD PH 7.43 (7.30-7.42)
[2019-01-10 20:52] LABS: ABSOLUTE BASOPHILS # (AUTO) 0.1 10^3/uL (0.0-0.2); ABSOLUTE EOSINOPHILS # (AUTO) 0.2 10^3/uL (0.0-0.6); ABSOLUTE LYMPHOCYTES (AUTO) 3.5 10^3/uL (0.5-4.7); ABSOLUTE NEUT (AUTO) 9.2 10^3/uL (1.7-8.2); BASOPHILS % (AUTO) 0.8 % (0-2); EOSINOPHILS % (AUTO) 1.1 % (0-6); HEMATOCRIT 41.2 % (36.0-47.0); HEMOGLOBIN 13.7 g/dL (12.0-15.5); MEAN CORPUSCULAR HGB CONC 33.3 g/dL (32.0-36.0); MEAN CORPUSCULAR VOLUME 93 fl (80-97); MONOCYTES % (AUTO) 7.4 % (3-13); PLATELET COUNT 282 10^3/uL (150-450); RED BLOOD COUNT 4.43 10^6/uL (3.72-5.28); RED CELL DISTRIBUTION WIDTH 14.2 % (11.5-14.0); SEGMENTED NEUTROPHILS % (AUTO) 65.7 % (42-78); TOTAL CELLS COUNTED % (AUTO) 100 %
[2019-01-10 21:05] LABS: ALANINE AMINOTRANSFERASE 35 U/L (9-52); ALBUMIN 3.6 g/dL (3.5-5.0); ALKALINE PHOSPHATASE 104 U/L (38-126); ANION GAP 9 (5-19); ASPARTATE AMINO TRANSFERASE 28 U/L (14-36); BILIRUBIN,DIRECT 0.2 mg/dL (0.0-0.4); BILIRUBIN,TOTAL 0.3 mg/dL (0.2-1.3); BLOOD UREA NITROGEN 12 mg/dL (7-20); CALCIUM 9.2 mg/dL (8.4-10.2); CARBON DIOXIDE 28 mmol/L (22-30); CHLORIDE 103 mmol/L (98-107); GLUCOSE 109 mg/dL (75-110); POTASSIUM 4.1 mmol/L (3.6-5.0); SODIUM 139.9 mmol/L (137-145); TOTAL PROTEIN 6.5 g/dL (6.3-8.2)
--- NOTE | 2019-01-10 21:19 | RADIOLOGY REPORT (SQ) ---
XR CHEST 1 VIEW HISTORY: SOB. COMPARISON: 01/05/2019 FINDINGS: The heart size is normal. The lungs are clear. No pleural effusions or pneumothorax is seen. No acute bony findings. IMPRESSION: No evidence of acute cardiopulmonary disease.
[2019-01-10] MEDS: MAGNESIUM SULFATE/D5W 1 GM/100 ML RTUPB IV SCH ×2 (21:45→23:04)
--- NOTE | 2019-01-11 00:03 | ER Document Report ---
ED Respiratory Problem - General Chief Complaint: Shortness Of Breath Stated Complaint: SHORT OF BREATH,CONGESTION Time Seen by Provider: 01/10/19 19:46 Notes: Patient is a 63-year-old female that comes to the emergency department for chief complaint of difficulty breathing. She was discharged from the hospital approximately 4 days ago, she has a history of COPD, former smoker, follows with pulmonology. She states she was discharged with 2 days of prednisone, she states that over the past day she has felt significantly worse with increased wheezing and difficulty breathing. She denies fever or chills. She has had the influenza vaccine and pneumonia vaccine. at bedside. TRAVEL OUTSIDE OF THE [place] IN LAST 30 DAYS: No - Related Data Allergies/Adverse Reactions: No Known Allergies Allergy (Verified 01/10/19 18:41) Past Medical History - General Information source: Patient, Relative - Social History Smoking Status: Former Smoker Chew tobacco use (# tins/day): No Frequency of alcohol use: None Drug Abuse: None Lives with: Family Family History: Reviewed & Not Pertinent, COPD Patient has suicidal ideation: No Patient has homicidal ideation: No - Past Medical History Cardiac Medical History: Reports: Hx Atrial Fibrillation, Hx H ypercholesterolemia, Hx Hypertension Pulmonary Medical History: Reports: Hx Pneumonia - FUNGAL PNA? 2018 Renal/ Medical History: Denies: Hx Peritoneal Dialysis GI Medical History: Reports: Hx Gastroesophageal Reflux Disease Psychiatric Medical History: Denies: Hx Depression Past Surgical History: Reports: Hx Section, Hx Thyroid Surgery, Other - Goiter removal from thyroid a few years ago. - Immunizations Immunizations up to date: Yes Hx Diphtheria, Pertussis, Tetanus Vaccination: Yes Hx Pneumococcal Vaccination: 11/14/17 Review of Systems - Review of Systems Constitutional: No symptoms reported EENT: No symptoms reported Cardiovascular: No symptoms reported Respiratory: See HPI Gastrointestinal: No symptoms reported Genitourinary: No symptoms reported Female Genitourinary: No symptoms reported Musculoskeletal: No symptoms reported Skin: No symptoms reported Hematologic/Lymphatic: No symptoms reported Neurological/Psychological: No symptoms reported Physical Exam - Vital signs Vitals: Temp Pulse Resp BP Pulse Ox 98.7 F 68 18 153/74 H 91 L 01/10/19 18:52 01/10/19 18:52 01/10/19 18:52 01/10/19 18:52 01/10/19 18:52 - Notes Notes: GENERAL: Alert, interacts well. HEAD: Normocephalic, atraumatic. EYES: Pupils equal, round, and reactive to light. Extraocular movements intact. ENT: Oral mucosa moist, tongue midline. Oropharynx unremarkable. Airway patent. Nares patent, no nasal septal hematoma, TM's intact. NECK: Full range of motion. Supple. Trachea midline. LUNGS: Decreased breath sounds bilaterally with expiratory wheezes, ingestion coughing episodes, tachypnea. Mild distress. HEART: Regular rate and rhythm. No murmur ABDOMEN: Soft, non-tender. Non-distended. Bowel sounds present in all 4 quadrants. GENITOURINARY: Deferred EXTREMITIES: Moves all 4 extremities spontaneously. No edema, normal radial and dorsalis pedis pulses bilaterally. No cyanosis. BACK: no cervical, thoracic, lumbar midline tenderness. No saddle anesthesia, normal distal neurovascular exam. NEUROLOGICAL: Alert and oriented x3. Normal speech. [cranial nerves II through XII grossly intact]. SKIN: Warm, dry, normal turgor. No rashes or lesions noted. Course - Re-evaluation Re-evalutation: Oxygen saturation on 3 L nasal cannula is 91-92%, patient with tachypnea, loud expiratory wheezes, decreased breath sounds. Patient given multiple duo nebs, Solu-Medrol, magnesium. She improved somewhat but not significantly. She remains with mild tachypnea, borderline oxygen saturation on nasal cannula. Chest x-ray unremarkable, chemistry unremarkable, CBC unremarkable with mild leukocytosis but patient was recently on steroids. Venous blood gas unremarkab le. Troponin is negative. Patient is completed all treatments, magnesium, Solu-Medrol. She still has wheezing, mild tachypnea, she did agree to ambulation with pulse oxygen saturation but immediately desaturated and was only taken a few steps. Upon return and being placed on oxygen she remained at 87% for several minutes before improving to low 90s again. Will require admission. 01/10/[address] Rowell, internal medicine, patient accepted to telemetry observation. Patient and at bedside state understanding and agreement. - Vital Signs Vital signs: Temp Pulse Resp BP Pulse Ox 97.8 F 79 18 133/53 H 95 01/11/19 02:55 01/11/19 02:55 01/11/19 02:55 01/11/19 02:55 01/11/19 02:55 - Laboratory Result Diagrams: 01/10/19 20:38 01/10/19 20:38 Laboratory results interpreted by me: 01/10/19 01/10/19 20:38 20:38 WBC 14.0 H RDW 14.2 H Absolute Neutrophils 9.2 H VBG pH 7.43 H Discharge - Discharge Clinical Impression: Hypoxia, COPD exacerbation, Wheezing Condition: Stable Disposition: ADMITTED OBSERVATION Admitting Provider: Hospitalist Unit Admitted: Telemetry
[2019-01-11] MEDS ORDERED: IPRATROPIUM/ALBUTEROL 0.5-2.5 MG/3 ML AMPUL NEB PRN (00:06)
[2019-01-11] MEDS ORDERED: ACETAMINOPHEN 325 MG TABLET PO PRN (00:06)
[2019-01-11] MEDS ORDERED: GUAIFENESIN SYRP 200 MG/10 ML UDC PO PRN (00:06)
[2019-01-11] MEDS ORDERED: CHLORPHENIRAMINE MALEATE 4 MG TABLET PO ONE ×2 (00:08→13:30)
[2019-01-11] MEDS ORDERED: HYDRALAZINE HCL INJ/PF 20 MG/1 ML SDV IV PRN (00:08)
[2019-01-11] MEDS ORDERED: FLUTICASONE NASAL SPRAY 50 MCG/SPRY 120 SPRAY/16 GM NASL ONE (00:15)
[2019-01-11] MEDS ORDERED: PREDNISONE 20 MG TABLET PO ONE (00:15)
[2019-01-11] MEDS ORDERED: FLUTICASONE NASAL SPRAY 50 MCG/SPRY 120 SPRAY/16 GM ONE (00:38)
[2019-01-11] MEDS ORDERED: LEVOFLOXACIN 750 MG/D5W RTU 750 MG/150 ML RTUPB IV ONE (01:00)
[2019-01-11] MEDS ORDERED: IPRATROPIUM BROMIDE 0.02% NEB 0.5 MG/2.5 ML AMPUL NEB PRN (01:10)
[2019-01-11] MEDS ORDERED: LEVALBUTEROL HCL NEB 1.25 MG/3 ML AMPUL NEB PRN (01:10)
[2019-01-11] MEDS: LEVALBUTEROL HCL NEB 1.25 MG/3 ML AMPUL NEB SCH ×4 (01:52→20:14)
[2019-01-11] MEDS: IPRATROPIUM BROMIDE 0.02% NEB 0.5 MG/2.5 ML AMPUL NEB SCH ×4 (02:11→20:14)
[2019-01-11] MEDS ORDERED: CHLORPHENIRAMINE MALEATE 4 MG TABLET ONE (03:41)
--- NOTE | 2019-01-11 05:14 | PDOC H&P ---
History of Present Illness Admission Date/PCP: 01/11/19 00:15 Patient complains of: Shortness of breath with cough and wheeze History of Present Illness: PRISCA ABREU is a 63 year old female with a past medical history of morbid obesity, atrial fibrillation on Eliquis, obstructive sleep apnea and COPD with reactive airway disease. Patient discharged 4 days ago after acute respiratory failure with hypoxia secondary to COPD exacerbation with bronchitis. She was discharged home with prednisone and was well until prednisone tapered off 48 hours ago. She denies rhinorrhea, postnasal drip, sore throat but admits to uncontrolled GERD, visiting relatives with viral URI symptoms and a new pet. In the emergency room she is found to have global wheeze with rales, oxygen saturations of 88% on room air requiring 2 L of O2 and Xopenex nebulizer. She denies tachycardia or palpitations and a BNP is only 340. Chest x-ray is unremarkable. She is referred to the hospitalist for admission. Past Medical History Cardiac Medical History: Reports: Atrial Fibrillation, Hyperlipidema, Hypertension Pulmonary Medical History: Reports: Pneumonia - FUNGAL PNA? 2018 GI Medical History: Reports: Gastroesophageal Reflux Disease Psychiatric Medical History: Denies: Depression Past Surgical History Past Surgical History: Reports: Section, Other - Goiter removal from thyroid a few years ago. Social History Information Source: Patient Lives with: Family Smoking Status: Former Smoker Last Time Smoked: "2-3 weeks ago" Frequency of Alcohol Use: None Hx Recreational Drug Use: No Drugs: None Hx Prescription Drug Abuse: No Family History Family History: COPD Parental Family History Reviewed: Yes Children Family History Reviewed: Yes Sibling(s) Family History Reviewed.: Yes Medication/Allergy Home Medications: Apixaban [Eliquis 5 mg Tablet] 5 mg PO Q12 01/05/19 Atorvastatin Calcium [Lipitor 40 mg Tablet] 40 mg PO QHS 01/05/19 Budesonide/Formoterol Fumarate [Symbicort HFA 160-4.5 mcg Inhaler 6 gm] 2 puff IH .ASDIR PRN 01/05/19 Calcium/Magnesium/Zinc [Xypopuf-Efzcwvoto-Lkzu Tablet] 2 each PO DAILY 01/05/19 Cholecalciferol (Vitamin D3) [Vitamin D3 5000 unit Capsule] 5,000 unit PO DAILY 01/05/19 Escitalopram Oxalate [Lexapro 10 mg Tablet] 10 mg PO QHS 01/05/19 Flecainide Acetate [Tambocor 100 mg Tablet] 50 mg PO BID 01/05/19 Fluticasone Propionate [Flonase Nasal [place] 50 Mcg/[place] 16 gm] 1 spray NASL DAILY 01/05/19 Levalbuterol Tartrate [Levalbuterol Tartrate Hfa] 1 - 2 puff IH Q6 01/05/19 Linaclotide [Linzess] 290 mcg PO QHS 01/05/19 Metoprolol Succinate [Toprol Xl 25 mg Tab.sr] 25 mg PO DAILY 01/05/19 Omeprazole 20 mg PO DAILY 01/05/19 Prednisone [Deltasone 20 mg Tablet] 40 mg PO DAILY 2 Days #2 tablet 01/07/19 Allergies/Adverse Reactions: No Known Allergies Allergy (Verified 01/10/19 18:41) Review of Systems Constitutional: ABSENT: chills, fever(s), headache(s), weight gain, weight loss Eyes: ABSENT: visual disturbances Ears: ABSENT: hearing changes Cardiovascular: ABSENT: chest pain, dyspnea on exertion, edema, orthropnea, palpitations Respiratory: ABSENT: cough, hemoptysis Gastrointestinal: ABSENT: abdominal pain, constipation, diarrhea, hematemesis, hematochezia, nausea, vomiting Genitourinary: ABSENT: dysuria, hematuria Musculoskeletal: ABSENT: joint swelling Integumentary: ABSENT: rash, wounds Neurological: ABSENT: abnormal gait, abnormal speech, confusion, dizziness, focal weakness, syncope Psychiatric: ABSENT: anxiety, depression, homidical ideation, suicidal ideation Endocrine: ABSENT: cold intolerance, heat intolerance, polydipsia, polyuria Hematologic/Lymphatic: ABSENT: easy bleeding, easy bruising Physical Exam Vital Signs: Temp Pulse Resp BP Pulse Ox 97.8 F 79 18 133/53 H 95 01/11/19 02:55 01/11/19 02:55 01/11/19 02:55 01/11/19 02:55 01/11/19 02:55 Intake & Output 01/09/19 01/10/19 01/11/19 11:59 11:59 11:59 Intake Total 350 Output Total 650 Balance -300 Weight 107.8 kg General appearance: PRESENT: cooperative, mild distress, severe distress, well- developed, well-nourished Head exam: PRESENT: atraumatic, normocephalic Eye exam: PRESENT: conjunctiva pink, EOMI, PERRLA. ABSENT: scleral icterus Ear exam: PRESENT: normal external ear exam Mouth exam: PRESENT: moist, tongue midline Neck exam: ABSENT: carotid bruit, JVD, lymphadenopathy, thyromegaly Respiratory exam: PRESENT: accessory muscle use, crackles, rales, retraction. ABSENT: rhonchi, wheezes Cardiovascular exam: PRESENT: RRR. ABSENT: diastolic murmur, rubs, systolic murmur Pulses: PRESENT: normal dorsalis pedis pul Vascular exam: PRESENT: normal capillary refill GI/Abdominal exam: PRESENT: normal bowel sounds, soft. ABSENT: distended, guarding, mass, organolmegaly, rebound, tenderness Rectal exam: PRESENT: deferred Extremities exam: PRESENT: full ROM. ABSENT: calf tenderness, clubbing, pedal edema Neurological exam: PRESENT: alert, awake, oriented to person, oriented to place, oriented to time, oriented to situation, CN II-XII grossly intact. ABSENT: motor sensory deficit Psychiatric exam: PRESENT: appropriate affect, normal mood. ABSENT: homicidal ideation, suicidal ideation Skin exam: PRESENT: dry, intact, warm. ABSENT: cyanosis, rash Results Laboratory Results: 01/10/19 20:38 01/10/19 20:38 01/10/19 01/10/19 01/10/19 20:38 20:38 20:38 WBC 14.0 H RBC 4.43 Hgb 13.7 Hct 41.2 MCV 93 MCH 31.0 MCHC 33.3 RDW 14.2 H Plt Count 282 Seg Neutrophils % 65.7 Lymphocytes % 25.0 Monocytes % 7.4 Eosinophils % 1.1 Basophils % 0.8 Absolute Neutrophils 9.2 H Absolute Lymphocytes 3.5 Absolute Monocytes 1.0 Absolute Eosinophils 0.2 Absolute Basophils 0.1 VBG pH 7.43 H VBG pCO2 43.5 VBG HCO3 28.2 VBG Base Excess 3.3 Sodium 139.9 Potassium 4.1 Chloride 103 Carbon Dioxide 28 Anion Gap 9 BUN 12 Creatinine 0.82 Est GFR ( Amer) > 60 Est GFR (Non-Af Amer) > 60 Glucose 109 Calcium 9.2 Total Bilirubin 0.3 AST 28 ALT 35 Alkaline Phosphatase 104 Total Protein 6.5 Albumin 3.6 01/10/19 01/10/19 20:38 20:38 Troponin I < 0.012 NT-Pro-B Natriuret Pep 340 Impressions: Chest X-Ray 01/10/19 19:50 IMPRESSION: No evidence of acute cardiopulmonary disease. Assessment & Plan - Diagnosis (1) Suspected pneumonia Is this a current diagnosis for this admission?: Yes Plan: Empiric antibiotics, incentive spirometry, flutter valve, follow-up CBC and blood culture, consider CT chest (2) COPD exacerbation Is this a current diagnosis for this admission?: Yes Plan: Telemetry admission, supplemental oxygen, Xopenex, prednisone, incentive spirometry and flutter valve. (3) Hypoxia Is this a current diagnosis for this admission?: Yes Plan: Likely secondary to exacerbation of COPD with early pneumonia. Supplemental oxygen (4) Morbid obesity Is this a current diagnosis for this admission?: Yes Plan: Morbid obesity will evaluate for metabolic cause with evaluation of thyroid function and dietitian consultation - Time Time Spent: 50 to 70 Minutes - Inpatient Certification Medical Necessity: Need Close Monitoring Due to Risk of Patient Decompensation
[2019-01-11] MEDS: CHLORPHENIRAMINE MALEATE 4 MG TABLET PO SCH ×4 (05:16→23:12)
[2019-01-11] MEDS ORDERED: HEPARIN SOD (PORCINE) 5,000 UNIT/ML 1 ML SYRINGE SUBCUT SCH (06:00)
[2019-01-11] MEDS ORDERED: IPRATROPIUM/ALBUTEROL 0.5-2.5 MG/3 ML AMPUL NEB SCH (08:00)
[2019-01-11] MEDS: PREDNISONE 20 MG TABLET PO SCH ×2 (09:33→17:06)
[2019-01-11] MEDS: FAMOTIDINE 20 MG TABLET PO SCH ×2 (09:34→21:25)
[2019-01-11] MEDS: APIXABAN 5 MG TABLET PO SCH ×2 (09:34→21:25)
[2019-01-11] MEDS: FLUTICASONE NASAL SPRAY 50 MCG/SPRY 120 SPRAY/16 GM NASL SCH ×2 (09:34→21:25)
[2019-01-11] MEDS: METOPROLOL SUCCINATE 25 MG TAB.SR.24H PO SCH (09:35)
[2019-01-11] MEDS: FLECAINIDE ACETATE 100 MG TABLET PO SCH ×2 (09:36→17:06)
[2019-01-11] MEDS: ESCITALOPRAM OXALATE 10 MG TABLET PO SCH (21:25)
[2019-01-11] MEDS: LEVOFLOXACIN 750 MG/D5W RTU 750 MG/150 ML RTUPB IV SCH (21:25)
[2019-01-11] MEDS: ATORVASTATIN CALCIUM 40 MG TABLET PO SCH (21:25)
[2019-01-12] MEDS: LEVALBUTEROL HCL NEB 1.25 MG/3 ML AMPUL NEB SCH ×4 (02:23→19:45)
[2019-01-12] MEDS: IPRATROPIUM BROMIDE 0.02% NEB 0.5 MG/2.5 ML AMPUL NEB SCH ×4 (02:23→19:45)
[2019-01-12] MEDS: CHLORPHENIRAMINE MALEATE 4 MG TABLET PO SCH ×2 (05:49→14:20)
[2019-01-12 06:03] LABS: HEMOGLOBIN 12.3 g/dL (12.0-15.5); MEAN CORPUSCULAR HEMOGLOBIN 31.2 pg (27.0-33.4); MEAN CORPUSCULAR HGB CONC 33.3 g/dL (32.0-36.0); MEAN CORPUSCULAR VOLUME 94 fl (80-97); PLATELET COUNT 290 10^3/uL (150-450); RED BLOOD COUNT 3.95 10^6/uL (3.72-5.28); RED CELL DISTRIBUTION WIDTH 14.7 % (11.5-14.0)
[2019-01-12 06:37] LABS: ABSOLUTE LYMPHOCYTES# (MANUAL) 1.8 10^3/uL (0.5-4.7); ABSOLUTE MONOCYTES # (MANUAL) 1.1 10^3/uL (0.1-1.4); ABSOLUTE NEUTROPHILS# (MANUAL) 15.1 10^3/uL (1.7-8.2); ANISOCYTOSIS SLIGHT; BASOPHILS % (MANUAL) 0 % (0-2); EOSINOPHILS % (MANUAL) 0 % (0-6); LYMPHOCYTES % (MANUAL) 10 % (13-45); MONOCYTES % (MANUAL) 6 % (3-13); POLYCHROMASIA SLIGHT; SEGMENTED NEUTROPHILS % (MAN) 84 % (42-78); TOTAL CELLS COUNTED 100
[2019-01-12 06:38] LABS: PLATELET COMMENT ADEQUATE
[2019-01-12] MEDS: PREDNISONE 20 MG TABLET PO SCH ×2 (10:33→18:33)
[2019-01-12] MEDS: FLECAINIDE ACETATE 100 MG TABLET PO SCH ×2 (10:34→18:33)
[2019-01-12] MEDS: METOPROLOL SUCCINATE 25 MG TAB.SR.24H PO SCH (10:34)
[2019-01-12] MEDS: LANSOPRAZOLE 30 MG TAB.RAP.DR PO SCH (10:34)
[2019-01-12] MEDS: APIXABAN 5 MG TABLET PO SCH ×2 (10:34→21:30)
[2019-01-12] MEDS: FLUTICASONE NASAL SPRAY 50 MCG/SPRY 120 SPRAY/16 GM NASL SCH ×2 (10:35→21:30)
[2019-01-12] MEDS: FAMOTIDINE 20 MG TABLET PO SCH (10:39)
[2019-01-12] MEDS: POLYETHYLENE GLYCOL 3350 POWDER 17 GM/1 PACKET PO SCH (14:17)
[2019-01-12] MEDS ORDERED: CHLORPHENIRAMINE MALEATE 4 MG TABLET PO ONE (15:00)
[2019-01-12] MEDS: BENZOCAINE/MENTHOL SORE THROAT LOZENGE BUCCAL PRN (15:48)
--- NOTE | 2019-01-12 16:58 | PDOC PROGRESS REPORT ---
Subjective Progress Note for:: 01/12/19 Subjective:: No adverse events overnight. No new complaints. Stable. She is breathing comfortably on room air. She does say that she feels like she is got swelling on the inside of her neck but not on the outside. She has had no stridor. No trouble breathing, chewing, or swallowing. Reason For Visit: COPD EXACERBATION BRONCHITIS Physical Exam Vital Signs: Temp Pulse Resp BP Pulse Ox 98.6 F 80 16 132/58 H 93 01/12/19 12:00 01/12/19 13:37 01/12/19 13:37 01/12/19 12:00 01/12/19 13:37 Pulse Oximeter Continuous Start: 01/11/19 00:06 Freq: RTQ4 Status: Complete Protocol: Document 01/11/19 16:00 [facility] (Rec: 01/11/19 17:30 [facility] [id number]) Pulse Oximetry Assessment Oxygen Saturation (92-100) 93 Oxygen Flow Rate (L/min) 3 Oxygen Delivery Method Nasal Cannula Fraction of Inspired Oxygen (FIO2) 32 Equipment Usage Equipment Standby Continuous SpO2 Machine # unavailable Intake & Output 01/11/19 01/12/19 01/13/19 06:59 06:59 06:59 Intake Total 350 1986 87 Output Total 650 Balance -300 1986 87 Weight 107.8 kg 107.4 kg General appearance: PRESENT: no acute distress, cooperative, morbidly obese Respiratory exam: PRESENT: clear to auscultation anat, symmetrical, unlabored. ABSENT: accessory muscle use, decreased breath sounds, prolonged expiratory phas, rales, rhonchi, stridor, tachypnea, wheezes Cardiovascular exam: PRESENT: RRR, +S1, +S2 Pulses: PRESENT: normal carotid pulses Vascular exam: PRESENT: normal capillary refill GI/Abdominal exam: PRESENT: normal bowel sounds, soft. ABSENT: distended, guarding, tenderness Extremities exam: ABSENT: clubbing, pedal edema Musculoskeletal exam: PRESENT: ambulatory, normal inspection. ABSENT: deformity Neurological exam: PRESENT: alert, awake, oriented to person, oriented to place, oriented to time, oriented to situation, normal gait Skin exam: PRESENT: dry, warm Results Laboratory Results: 01/12/19 04:44 01/10/19 20:38 01/12/19 04:44 WBC 18.0 H RBC 3.95 Hgb 12.3 Hct 37.0 MCV 94 MCH 31.2 MCHC 33.3 RDW 14.7 H Plt Count 290 Seg Neutrophils % Not Reportable Lymphocytes % Not Reportable Monocytes % Not Reportable Eosinophils % Not Reportable Basophils % Not Reportable Absolute Neutrophils Not Reportable Absolute Lymphocytes Not Reportable Absolute Monocytes Not Reportable Absolute Eosinophils Not Reportable Absolute Basophils Not Reportable 01/10/19 01/10/19 20:38 20:38 Troponin I < 0.012 NT-Pro-B Natriuret Pep 340 Impressions: Chest X-Ray 01/10/19 19:50 IMPRESSION: No evidence of acute cardiopulmonary disease. Assessment & Plan - Diagnosis (1) COPD exacerbation Is this a current diagnosis for this admission?: Yes Plan: Improving with steroids and bronchodilators. I told her that if she looks like this tomorrow she is probably going to go home. (2) Morbid obesity Is this a current diagnosis for this admission?: Yes Plan: Recommend lifestyle modification. (3) Suspected pneumonia Is this a current diagnosis for this admission?: Yes Plan: Ruled out. No evidence at this time clinically or on chest x-ray. - Time Time Spent with patient: 15-24 minutes
[2019-01-12] MEDS: LEVOFLOXACIN 750 MG/D5W RTU 750 MG/150 ML RTUPB IV SCH (21:30)
[2019-01-12] MEDS: ATORVASTATIN CALCIUM 40 MG TABLET PO SCH (21:30)
[2019-01-12] MEDS: ESCITALOPRAM OXALATE 10 MG TABLET PO SCH (21:30)
[2019-01-13] MEDS: BENZOCAINE/MENTHOL SORE THROAT LOZENGE BUCCAL PRN (01:21)
[2019-01-13] MEDS: IPRATROPIUM BROMIDE 0.02% NEB 0.5 MG/2.5 ML AMPUL NEB SCH ×2 (01:43→08:47)
[2019-01-13] MEDS: LEVALBUTEROL HCL NEB 1.25 MG/3 ML AMPUL NEB SCH ×2 (01:43→08:47)
[2019-01-13] MEDS: LANSOPRAZOLE 30 MG TAB.RAP.DR PO SCH (05:26)
[2019-01-13] MEDS: FLUTICASONE NASAL SPRAY 50 MCG/SPRY 120 SPRAY/16 GM NASL SCH (10:11)
[2019-01-13] MEDS: APIXABAN 5 MG TABLET PO SCH (10:12)
[2019-01-13] MEDS: POLYETHYLENE GLYCOL 3350 POWDER 17 GM/1 PACKET PO SCH (10:12)
[2019-01-13] MEDS: METOPROLOL SUCCINATE 25 MG TAB.SR.24H PO SCH (10:12)
[2019-01-13] MEDS: FLECAINIDE ACETATE 100 MG TABLET PO SCH (10:13)
[2019-01-13] MEDS: PREDNISONE 20 MG TABLET PO SCH (10:14)
[2019-01-13 13:51] VITALS: BP 115/55
--- NOTE | 2019-01-16 13:34 | PDOC DISCHARGE SUMMARY ---
General - Admit/Disc Date/PCP Admission Date/Primary Care Provider: 01/11/19 00:15 Discharge Date: 01/13/19 - Discharge Diagnosis (1) COPD exacerbation Is this a current diagnosis for this admission?: Yes Summary: Resolved. Patient was admitted to the medical floor and provided steroids, scheduled and as needed nebulizer treatments, and supplemental oxygen as needed to maintain saturations >89%. Her symptoms rapidly resolved and she now is asymptotic and maintaining oxygen saturations while ambulatory on room air. She is discharged to home in stable condition. She is provided prescriptions for a refill of Xopenex (has nebulizer machine at home) and prednisone. She is instructed to resume her remaining medications unchanged. She is advised to follow up with her primary care provider within 1 week and to return to the emergency department as needed for concerning symptoms. (2) Seasonal allergic rhinitis Is this a current diagnosis for this admission?: Yes Summary: Potential cause of #1. Patient reports seasonal allergies related to tree pollen. also notes that they have visiting family members how have brought 2 dogs that are staying in the home (normally a pet-free environment). Recommend daily OTC allergy medication during pollen season and while pets are in the home. Avoid all known allergy triggers. Continue home dose flonase. (3) Morbid obesity Is this a current diagnosis for this admission?: Yes Summary: Dietary discretion is advised. (4) Suspected pneumonia Is this a current diagnosis for this admission?: Yes Summary: Ruled out. No evidence at this time clinically or on chest x-ray. (5) Hyperlipidemia Is this a current diagnosis for this admission?: Yes Summary: Continue home dose statin therapy. (6) Atrial fibrillation Is this a current diagnosis for this admission?: Yes Summary: Rate controlled. Continue home dose Eliquis and metoprolol. - Additional Information Discharge Diet: Other (Comments) - low calorie/low fat Discharge Activity: Activity As Tolerated, Balance Activity w/Rest, Slowly Increase Activity, Walk Frequently Prescriptions: Levalbuterol HCl [Xopenex Neb 1.25 mg/3 ml Ampul] 1.25 mg NEB RTQ6HP PRN #120 vial.neb PRN Reason: Shortness Of Breath Prednisone [Deltasone 20 mg Tablet] 20 mg PO BID #10 tablet Home Medications: Atorvastatin Calcium [Lipitor 40 mg Tablet] 40 mg PO QHS 01/05/19 Calcium/Magnesium/Zinc [Tvkwywj-Sywwrxeoe-Zkml Tablet] 2 each PO QHS 01/05/19 Cholecalciferol (Vitamin D3) [Vitamin D3 5000 unit Capsule] 5,000 unit PO QHS 01/05/19 Escitalopram Oxalate [Lexapro 10 mg Tablet] 10 mg PO QHS 01/05/19 Flecainide Acetate [Tambocor 100 mg Tablet] 50 mg PO QHS 01/05/19 Fluticasone Propionate [Flonase Nasal [place] 50 Mcg/[place] 16 gm] 1 spray NASL DAILY 01/05/19 Levalbuterol Tartrate [Levalbuterol Tartrate Hfa] 2 puff IH Q6HP PRN 01/05/19 Metoprolol Succinate [Toprol Xl 25 mg Tab.sr] 25 mg PO DAILY 01/05/19 Omeprazole 20 mg PO DAILY 01/05/19 Acetaminophen [Tylenol 325 mg Tablet] 650 mg PO Q4HP PRN tablet 01/13/19 Apixaban [Eliquis 5 mg Tablet] 5 mg PO Q12 tablet 01/13/19 Fluticasone Propionate [Flonase Nasal [place] 50 Mcg/[place] 16 gm] 2 spray NASL Q12 spray.pump 01/13/19 Guaifenesin [Robitussin Syrup 200 mg/10 ml Ud Cup] 200 mg PO QIDP PRN udc 01/13/19 Levalbuterol HCl [Xopenex Neb 1.25 mg/3 ml Ampul] 1.25 mg NEB RTQ6HP PRN #120 vial.neb 01/13/19 Prednisone [Deltasone 20 mg Tablet] 20 mg PO BID #10 tablet 01/13/19 History of Present Illness History of Present Illness: Per H&P by Dr. Rowell: PRISCA ABREU is a 63 year old female with a past medical history of morbid obesity, atrial fibrillation on Eliquis, obstructive sleep apnea and COPD with reactive airway disease. Patient discharged 4 days ago after acute respiratory failure with hypoxia secondary to COPD exacerbation with bronchitis. She was discharged home with prednisone and was well until prednisone tapered off 48 hours ago. She denies rhinorrhea, postnasal drip, sore throat but admits to uncontrolled GERD, visiting relatives with viral URI symptoms and a new pet. In the emergency room she is found to have global wheeze with rales, oxygen saturations of 88% on room air requiring 2 L of O2 and Xopenex nebulizer. She denies tachycardia or palpitations and a BNP is only 340. Chest x-ray is unremarkable. She is referred to the hospitalist for admission. Physical Exam Vital Signs: Temp Pulse Resp BP Pulse Ox 98.1 F 59 L 14 115/55 L 99 01/13/19 10:00 01/13/19 10:00 01/13/19 10:00 01/13/19 10:00 01/13/19 10:00 Pulse Oximeter Continuous Start: 01/11/19 00: 06 Freq: RTQ4 Status: Complete Protocol: Document 01/11/19 16:00 [facility] (Rec: 01/11/19 17:30 [facility] [id number]) Pulse Oximetry Assessment Oxygen Saturation (92-100) 93 Oxygen Flow Rate (L/min) 3 Oxygen Delivery Method Nasal Cannula Fraction of Inspired Oxygen (FIO2) 32 Equipment Usage Equipment Standby Continuous SpO2 Machine # unavailable General appearance: PRESENT: no acute distress, cooperative, morbidly obese, well-developed, well-nourished Head exam: PRESENT: atraumatic, normocephalic Eye exam: PRESENT: conjunctiva pink, EOMI, PERRLA. ABSENT: scleral icterus Ear exam: PRESENT: normal external ear exam Mouth exam: PRESENT: moist, tongue midline Neck exam: ABSENT: carotid bruit, JVD, lymphadenopathy, thyromegaly Respiratory exam: PRESENT: clear to auscultation anat, symmetrical, unlabored. ABSENT: rales, rhonchi, wheezes Cardiovascular exam: PRESENT: RRR, +S1, +S2. ABSENT: diastolic murmur, rubs, systolic murmur Pulses: PRESENT: normal dorsalis pedis pul Vascular exam: PRESENT: normal capillary refill GI/Abdominal exam: PRESENT: normal bowel sounds, soft. ABSENT: distended, guarding, mass, organolmegaly, rebound, tenderness Rectal exam: PRESENT: deferred Extremities exam: PRESENT: full ROM. ABSENT: calf tenderness, clubbing, pedal edema Neurological exam: PRESENT: alert, awake, oriented to person, oriented to place, oriented to time, oriented to situation, CN II-XII grossly intact. ABSENT: motor sensory deficit Psychiatric exam: PRESENT: anxious, appropriate affect, normal mood. ABSENT: homicidal ideation, suicidal ideation Skin exam: PRESENT: dry, intact, warm. ABSENT: cyanosis, rash Results Laboratory Results: 01/12/19 04:44 01/10/19 20:38 01/10/19 01/10/19 20:38 20:38 Troponin I < 0.012 NT-Pro-B Natriuret Pep 340 Impressions: Chest X-Ray 01/10/19 19:50 IMPRESSION: No evidence of acute cardiopulmonary disease. Qualifiers - * PATIENT BEING DISCHARGED WITH ANY OF THE FOLLOWING DIAGNOSIS: No Plan Discharge Plan: Discharge to home in the care of family members. Avoid all reactive airway triggers: dust, pollen, allergens, smoke. Complete prednisone course. Follow up with PCP within 1 week. Return to the emergency department as needed for concerning symptoms. Time Spent: Less than 30 Minutes
== END 2019-01-13 11:55 | disposition home or self-care (01) ==
LOC: ER 18:40 → EH 01-11 00:15 → 3S 01-11 02:37 → 5 01-11 23:40
PROVIDERS: ADMIT Internal Medicine; ATTEND Internal Medicine
DX: J44.1 Chronic obstructive pulmonary disease with (acute) exacerbation (principal); J30.1 Allergic rhinitis due to pollen; E66.01 Morbid (severe) obesity due to excess calories; Z03.89 Encounter for observation for other suspected diseases and conditions ruled out; E78.5 Hyperlipidemia, unspecified; I48.91 Unspecified atrial fibrillation; G47.33 Obstructive sleep apnea (adult) (pediatric); K21.9 Gastro-esophageal reflux disease without esophagitis; R09.02 Hypoxemia; I10 Essential (primary) hypertension; D72.829 Elevated white blood cell count, unspecified; Z79.899 Other long term (current) drug therapy; Z79.02 Long term (current) use of antithrombotics/antiplatelets; Z87.891 Personal history of nicotine dependence
CPT/HCPCS: 94640 ×5; 99285; 96375; 96365; 96366; 36415 ×3; 85025 ×2; 80053; 84484; 82803; 83880; 71045; 94799; 94660 ×3; 94667 ×2; 94668; G0378 ×4; J3490 ×14; J2930; J3475; J7512 ×3; J1956 ×2; J7620

== ENCOUNTER → 2019-06-11 | Outpatient (CLI) | payer OTHER ==
--- NOTE | 2019-06-11 10:21 | RADIOLOGY REPORT (SQ) ---
EXAM DESCRIPTION: U/S ABDOMEN COMPLETE W/O DOP COMPLETED DATE/TIME: 06/11/2019 8:45 am REASON FOR STUDY: NAUSEA (R11.2) R11.2 NAUSEA WITH VOMITING, UNSPECIFIED R10.13 EPIGASTRIC PAIN COMPARISON: None. TECHNIQUE: Dynamic and static grayscale images acquired of the abdomen and recorded on PACS. Additio nal selected color Doppler and spectral images recorded. Note: Study does not meet criteria for complete doppler/duplex scan LIMITATIONS: None. FINDINGS: PANCREAS: No masses. Visualized pancreatic duct normal caliber. LIVER: No masses. Echotexture normal. LIVER VASCULATURE: Normal directional flow of the main portal vein and hepatic veins. GALLBLADDER: Multiple small stones in the gallbladder. No pericholecystic fluid. ULTRASOUND-DETECTED TUTTLE'S SIGN: Negative. INTRAHEPATIC DUCTS AND COMMON DUCT: CBD and intrahepatic ducts normal caliber. No filling defects. INFERIOR VENA CAVA: Normal flow. AORTA: No aneurysm. RIGHT KIDNEY: Normal size. Normal echogenicity. No solid or suspicious masses. No hydronephros is. No calcifications. LEFT KIDNEY: Normal size. Normal echogenicity. No solid or suspicious masses. No hydronephrosi s. No calcifications. SPLEEN: Normal size. No solid masses. PERITONEAL AND PLEURAL SPACES: No ascites or effusions. OTHER: No other significant finding. IMPRESSION: Small gallstones. Otherwise normal study. TECHNICAL DOCUMENTATION: JOB ID: [id number] [employer]- All Rights Reserved Reading location - IP/workstation name: [email or web address]
--- NOTE | 2019-06-11 15:31 | RADIOLOGY REPORT (SQ) ---
EXAM DESCRIPTION: UPPER GI/SM BOWEL COMPLETED DATE/TIME: 06/11/2019 11:03 am REASON FOR STUDY: EPIGASTRIC PAIN (R10.13) R11.2 NAUSEA WITH VOMITING, UNSPECIFIED R10.13 EPIGASTR IC PAIN COMPARISON: None. TECHNIQUE: Under fluoroscopic guidance, patient ingested effervescent granules followed by thick an d thin barium. Fluoroscopic spot images and routine radiographic images acquired and stored on PACS . Following evaluation of esophagus and stomach, additional barium administered with serial delayed ab dominal radiographs until colonic identification. Fluoroscopic images recorded of the terminal ileu m. 12 MM BARIUM TABLET GIVEN: 12 mm barium tablet passed easily through the esophagus and into the stoma ch without delay. FLUOROSCOPY TIME: 3.7 minutes 16 images saved to PACS. LIMITATIONS: None. FINDINGS: NEUROMUSCULAR COORDINATION OF SWALLOW: Normal. No aspiration. ESOPHAGEAL MOTILITY: Normal peristalsis. No esophageal spasm. ESOPHAGEAL MUCOSA: Normal mucosa without masses or ulceration. GASTRO-ESOPHAGEAL JUNCTION: No hiatal hernia. Gastroesophageal reflux demonstrated. STOMACH: Normal without masses or ulcerations. GASTRIC OUTLET: No delay in emptying. Normal pylorus. DUODENAL BULB: Normal distention. No spasm or ulceration. DUODENUM: Mucosa normal. No extrinsic masses or malrotation. PROXIMAL SMALL BOWEL: Normal as visualized. JEJUNUM: Normal mucosal pattern. No dilatation, segmentation, strictures or masses. ILEUM: Normal mucosal pattern. No dilatation, segmentation, strictures or masses. TERMINAL ILEUM AND ILEO-CECAL VALVE: Normal mucosal pattern without cobble-stoning or stricture. Nor mal compression. PROXIMAL COLON: Incompletely imaged. No abnormality. NON-GI TRACT STRUCTURES: No significant finding. OTHER: No other significant finding. IMPRESSION: GASTROESOPHAGEAL REFLUX. OTHERWISE NORMAL DOUBLE CONTRAST BARIUM SWALLOW/UPPER GI SERIE S/SMALL BOWEL SERIES. COMMENT: None Quality ID [id number]: Final reports for procedures using fluoroscopy that document radiation exposure jim stacy, or exposure time and number of fluorographic images (if radiation exposure indices are not avail able) TECHNICAL DOCUMENTATION: JOB ID: [id number] [employer]- All Rights Reserved Reading location - IP/workstation name: [email or web address]
== END ==
LOC: RAD 07:13
DX: K80.80 Other cholelithiasis without obstruction (principal); K21.9 Gastro-esophageal reflux disease without esophagitis; R11.0 Nausea; R10.13 Epigastric pain
CPT/HCPCS: 74249; 76700

== ENCOUNTER 2019-06-19 12:20 | Emergency (ER) | payer OTHER ==
--- NOTE | 2019-06-19 12:37 | EKG REPORT ---
SEVERITY:- BORDERLINE ECG - SINUS RHYTHM SHORT AK INTERVAL, ACCELERATED AV CONDUCTION : Confirmed by: Gael Bennett MD 19-Jun-2019 12:36:30
--- NOTE | 2019-06-19 12:54 | ER Document Report ---
ED Medical Screen (RME) - General Chief Complaint: Abnormal Lab Results Stated Complaint: ABNORMAL TEST RESULTS Time Seen by Provider: 06/19/19 12:43 Primary Care Provider: HARPER JEAN [Primary Care Provider] - Follow up as needed Mode of Arrival: Ambulatory Information source: Patient Notes: Patient is a 64-year-old female presented to the emergency department chief complaint of chest pressure and tightness. Patient reports symptoms have been going on intermittently over the last several weeks. She states she went to see her primary care provider this morning he was worried about her aorta. Patient denies any sharp stabbing pain but does state that the pressure goes through to her back. She does report that she recently had a negative stress test done at [facility]. Exam: Heart sounds S1-S2 present with no ectopy noted. Lung sounds clear and equal bilaterally. No acute distress noted. I have greeted and performed a rapid initial assessment of this patient. A comprehensive ED assessment and evaluation of the patient, analysis of test results and completion of the medical decision making process will be conducted by additional ED providers. I have specifically instructed the patient or family members with the patient to immediately return to any nursing staff should anything change in the patient's condition or with their chief complaint. This medical record was dictated with voice recognizing software. There may be grammatical, syntax errors that are unintended. TRAVEL OUTSIDE OF THE [place] IN LAST 30 DAYS: No - Related Data Allergies/Adverse Reactions: No Known Allergies Allergy (Verified 06/19/19 12:23) Past Medical History - Social History Frequency of alcohol use: None Drug Abuse: None - Past Medical History Cardiac Medical History: Reports: Hx Atrial Fibrillation, Hx Hypercholesterolemia, Hx Hypertension Pulmonary Medical History: Reports: Hx Pneumonia - FUNGAL PNA? 2018 Renal/ Medical History: Denies: Hx Peritoneal Dialysis GI Medical History: Reports: Hx Gastroesophageal Reflux Disease Psychiatric Medical History: Denies: Hx Depression Past Surgical History: Reports: Hx Section, Hx Thyroid Surgery, Other - Goiter removal from thyroid a few years ago. - Immunizations Immunizations up to date: Yes Hx Diphtheria, Pertussis, Tetanus Vaccination: Yes History of Influenza Vaccine for 08/2017 - 01/2018 Season: Yes Influenza Administration Date for 08/2017 - 01/2018 Season: 07/29/17 Physical Exam - Vital signs Vitals: Temp Pulse Resp BP Pulse Ox 97.2 F 53 L 16 122/69 93 06/19/19 12:38 06/19/19 12:38 06/19/19 12:38 06/19/19 12:38 06/19/19 12:38 Course - Vital Signs Vital signs: Temp Pulse Resp BP Pulse Ox 97.2 F 53 L 16 122/69 93 06/19/19 12:38 06/19/19 12:38 06/19/19 12:38 06/19/19 12:38 06/19/19 12:38 Doctor's Discharge - Discharge Referrals: [facility] [Primary Care Provider] - Follow up as needed
[2019-06-19 13:14] LABS: ABSOLUTE BASOPHILS # (AUTO) 0.1 10^3/uL (0.0-0.2); ABSOLUTE EOSINOPHILS # (AUTO) 0.3 10^3/uL (0.0-0.6); ABSOLUTE LYMPHOCYTES (AUTO) 2.4 10^3/uL (0.5-4.7); ABSOLUTE MONOCYTES (AUTO) 0.5 10^3/uL (0.1-1.4); ABSOLUTE NEUT (AUTO) 3.5 10^3/uL (1.7-8.2); BASOPHILS % (AUTO) 1.4 % (0-2); EOSINOPHILS % (AUTO) 4.9 % (0-6); HEMOGLOBIN 12.8 g/dL (12.0-15.5); LYMPHOCYTES % (AUTO) 34.7 % (13-45); MEAN CORPUSCULAR HEMOGLOBIN 31.2 pg (27.0-33.4); MEAN CORPUSCULAR HGB CONC 32.8 g/dL (32.0-36.0); MEAN CORPUSCULAR VOLUME 95 fl (80-97); MONOCYTES % (AUTO) 7.9 % (3-13); PLATELET COUNT 237 10^3/uL (150-450); RED CELL DISTRIBUTION WIDTH 14.7 % (11.5-14.0); SEGMENTED NEUTROPHILS % (AUTO) 51.1 % (42-78); TOTAL CELLS COUNTED % (AUTO) 100 %; WHITE BLOOD COUNT 6.8 10^3/uL (4.0-10.5)
[2019-06-19 13:33] LABS: ALBUMIN 3.8 g/dL (3.5-5.0); ALKALINE PHOSPHATASE 109 U/L (38-126); ANION GAP 7 (5-19); ASPARTATE AMINO TRANSFERASE 28 U/L (14-36); BILIRUBIN,DIRECT 0.3 mg/dL (0.0-0.4); BILIRUBIN,TOTAL 0.4 mg/dL (0.2-1.3); BLOOD UREA NITROGEN 10 mg/dL (7-20); CARBON DIOXIDE 30 mmol/L (22-30); CHLORIDE 103 mmol/L (98-107); GLUCOSE 101 mg/dL (75-110); POTASSIUM 4.7 mmol/L (3.6-5.0); TOTAL PROTEIN 6.6 g/dL (6.3-8.2)
--- NOTE | 2019-06-19 14:14 | RADIOLOGY REPORT (SQ) ---
EXAM DESCRIPTION: CHEST 2 VIEWS COMPLETED DATE/TIME: 06/19/2019 1:30 pm REASON FOR STUDY: chest pressure COMPARISON: 01/10/2019 EXAM PARAMETERS: NUMBER OF VIEWS: two views TECHNIQUE: Digital Frontal and Lateral radiographic views of the chest acquired. RADIATION DOSE: NA LIMITATIONS: none FINDINGS: LUNGS AND PLEURA: Chronic interstitial changes. No infiltrate, effusion, or mass. MEDIASTINUM AND HILAR STRUCTURES: No masses or contour abnormalities. HEART AND VASCULAR STRUCTURES: Heart normal size. No evidence for failure. BONES: No acute findings. HARDWARE: None in the chest. OTHER: No other significant finding. IMPRESSION: Chronic lung changes with no acute cardiopulmonary findings. TECHNICAL DOCUMENTATION: JOB ID: [id number] [employer]- All Rights Reserved Reading location - IP/workstation name: [email or web address]
--- NOTE | 2019-06-19 15:00 | ER Document Report ---
ED General - General Chief Complaint: Abnormal Lab Results Stated Complaint: ABNORMAL TEST RESULTS Time Seen by Provider: 06/19/19 12:43 Primary Care Provider: [facility] [Primary Care Provider] - Follow up as needed Mode of Arrival: Ambulatory TRAVEL OUTSIDE OF THE [place] IN LAST 30 DAYS: No - HPI Patient complains to provider of: chest pain to back Onset: Other - weeks Onset/Duration: Gradual Quality of pain: Pressure Severity: Mild Pain Level: 2 Associated symptoms: Nausea, Sweating Exacerbated by: Deep breathing Notes: patient sent by pcp for concern for "aortic tear" has had neg nuclear stress test within the last 2 weeks and denies change of pain no fever, cough, congestion no leg swelling - Related Data Allergies/Adverse Reactions: No Known Allergies Allergy (Verified 06/19/19 12:23) Past Medical History - General Information source: Patient - Social History Smoking Status: Former Smoker Frequency of alcohol use: None Drug Abuse: None Family History: COPD Patient has suicidal ideation: No Patient has homicidal ideation: No - Past Medical History Cardiac Medical History: Reports: Hx Atrial Fibrillation, Hx Hypercholesterolemia, Hx Hypertension Pulmonary Medical History: Reports: Hx Pneumonia - FUNGAL PNA? 2018 Renal/ Medical History: Denies: Hx Peritoneal Dialysis GI Medical History: Reports: Hx Gastroesophageal Reflux Disease Psychiatric Medical History: Denies: Hx Depression Past Surgical History: Reports: Hx Section, Hx Thyroid Surgery, Other - Goiter removal from thyroid a few years ago. - Immunizations Immunizations up to date: Yes Hx Diphtheria, Pertussis, Tetanus Vaccination: Yes Hx Pneumococcal Vaccination: 11/14/17 Review of Systems - Review of Systems Constitutional: No symptoms reported EENT: No symptoms reported Cardiovascular: Chest pain Respiratory: No symptoms reported Gastrointestinal: No symptoms reported Genitourinary: No symptoms reported Female Genitourinary: No symptoms reported Musculoskeletal: No symptoms reported Skin: No symptoms reported Hematologic/Lymphatic: No symptoms reported Neurological/Psychological: No symptoms reported Physical Exam - Vital signs Vitals: Temp Pulse Resp BP Pulse Ox 97.2 F 53 L 16 122/69 93 06/19/19 12:38 06/19/19 12:38 06/19/19 12:38 06/19/19 12:38 06/19/19 12:38 Interpretation: Normal - General General appearance: Appears well, Alert - HEENT Head: Normocephalic, Atraumatic Eyes: Normal Pupils: PERRL - Respiratory Respiratory status: No respiratory distress Chest status: Nontender Breath sounds: Normal Chest palpation: Normal - Cardiovascular Rhythm: Regular Heart sounds: Normal auscultation Murmur: No - Abdominal Inspection: Normal Distension: No distension Bowel sounds: Normal Tenderness: Nontender Organomegaly: No organomegaly - Back Back: Normal, Nontender - Extremities General upper extremity: Normal inspection, Nontender, Normal color, Normal ROM, Normal temperature General lower extremity: Normal inspection, Nontender, Normal color, Normal ROM, Normal temperature, Normal weight bearing. No: Mile's sign - Neurological Neuro grossly intact: Yes Cognition: Normal Orientation: AAOx4 Conrad Coma Scale Eye Opening: Spontaneous Conrad Coma Scale Verbal: Oriented Conrad Coma Scale Motor: Obeys Commands Conrad Coma Scale Total: 15 Speech: Normal Motor strength normal: LUE, RUE, LLE, RLE Sensory: Normal - Psychological Associated symptoms: Normal affect, Normal mood - Skin Skin Temperature: Warm Skin Moisture: Dry Skin Color: Normal Course - Re-evaluation Re-evalutation: 06/19/19 14:59 EKG nonischemic trop neg recent stress at [facility] negative by their report HR is in 50's with normal BP will acquiesce and scan chest given pcp concern for aortic pathology 06/19/19 16:33 patient's workup is negative given nonischemic ekg and recent normal nuclear stress test, will discharge recommend stopping her metoprolol for borderline low HR 06/19/19 16:34 patient has a normal oxygen sat, normal RR and normal BP and has maintained this throughout ED course - Vital Signs Vital signs: Temp Pulse Resp BP Pulse Ox 97.2 F 53 L 25 H 110/71 90 L 06/19/19 12:38 06/19/19 12:38 06/19/19 16:00 06/19/19 14:01 06/19/19 16:00 - Laboratory Result Diagrams: 06/19/19 13:00 06/19/19 13:00 Laboratory results interpreted by me: 06/19/19 13:00 RDW 14.7 H - EKG Interpretation by Me EKG shows normal: Sinus rhythm Rate: Bradycardia - 57 Rhythm: NSR Additional EKG results interpreted by me: 06/19/19 15:00 short [place] interval. no ST or T wave changes Discharge - Discharge Clinical Impression: Chest pain Qualifiers: Chest pain type: other chest pain Qualified Code(s): R07.89 - Other chest pain; R07.8 - Other chest pain Condition: Stable Disposition: HOME, SELF-CARE Instructions: Chest Pain of Unclear Cause ([facility]) Additional Instructions: please stop taking your metoprolol until you see your primary doctor Referrals: [facility] [Primary Care Provider] - Follow up as needed
--- NOTE | 2019-06-19 15:55 | RADIOLOGY REPORT (SQ) ---
EXAM DESCRIPTION: CTA CHEST COMPLETED DATE/TIME: 06/19/2019 3:40 pm REASON FOR STUDY: chest pain COMPARISON: 06/06/2018 TECHNIQUE: CT scan of the chest performed using helical scanning technique with dynamic intravenous contrast injection. Images reviewed with lung, soft tissue and bone windows. Reconstructed coronal and sagittal MPR images reviewed. Additional 3 dimensional post-processing performed to develop Maximal Intensity Projection images (TN P). All images stored on PACS. All CT scanners at this facility use dose modulation, iterative reconstruction, and/or weight based d osing when appropriate to reduce radiation dose to as low as reasonably achievable (ALARA). [facility]: Dose Right [facility]: CareDose [facility]: Dose Right [facility]: Teradose 4D [facility]: [employer] CONTRAST TYPE AND DOSE: contrast/concentration: Isovue 350.00 mg/ml; Total Contrast Delivered: 71.0 ml; Total Saline Delivered: 80.0 ml Contrast bolus adequate for pulmonary arteries and aorta. RENAL FUNCTION: BUN 10 creatinine 0.8 RADIATION DOSE: CT Rad equipment meets quality standard of care and radiation dose reduction techniq ues were employed. CTDIvol: 19.8 - 36.8 mGy. DLP: 1374 mGy-cm. . LIMITATIONS: None. FINDINGS: LUNGS AND PLEURA: Mild ground-glass infiltrates in each lung. No mass. No significant pl eural effusion. AORTA AND GREAT VESSELS: No aneurysm. No dissection. HEART: No pericardial effusion. No significant coronary artery calcifications. PULMONARY ARTERIES: No emboli visualized in the main pulmonary arteries or the segmental branches. HILAR AND MEDIASTINAL STRUCTURES: No identified masses or abnormal nodes. HARDWARE: None in the chest. UPPER ABDOMEN: No significant findings. Limited exam. THYROID AND OTHER SOFT TISSUES: No masses. No adenopathy. BONES: No acute or significant finding. 3D MIPS: Confirm above findings. OTHER: No other significant finding. IMPRESSION: There is no pulmonary embolus. There is no aortic aneurysm or dissection. Mild ground- glass infiltrates may suggest chronic interstitial changes or mild interstitial edema. COMMENT: Quality ID # [id number]: Final reports with documentation of one or more dose reduction techniques (e.g., Automated exposure control, adjustment of the mA and/or kV according to patient size, use of iterative reconstruction technique) TECHNICAL DOCUMENTATION: JOB ID: [id number] [employer]- All Rights Reserved Reading location - IP/workstation name: [email or web address]
[2019-06-19 16:56] VITALS: BP 142/75
== END 2019-06-19 16:56 | disposition home or self-care (01) ==
LOC: ER 12:20
DX: R07.9 Chest pain, unspecified (principal); R11.0 Nausea; R61 Generalized hyperhidrosis; R00.1 Bradycardia, unspecified; I10 Essential (primary) hypertension; Z79.899 Other long term (current) drug therapy; Z87.891 Personal history of nicotine dependence
CPT/HCPCS: 36415; 71046; 71275; 80053; 83880; 84484; 85025; 93005; 93010; 99285

== ENCOUNTER → 2019-06-28 | Outpatient (CLI) | payer OTHER ==
--- NOTE | 2019-06-28 13:12 | RADIOLOGY REPORT (SQ) ---
EXAM DESCRIPTION: NM HIDA SCAN WITHOUT CCK COMPLETED DATE/TIME: 06/28/2019 10:09 am REASON FOR STUDY: R11.2 NAUSEA WITH VOMITING, UNSPECIFIED R10.11 RIGHT UPPER QUADRANT PAIN R11.2 N AUSEA WITH VOMITING, UNSPECIFIED COMPARISON: None. RADIONUCLIDE AND DOSE: DOSAGE RADIONUCLIDE: 5 millicuries Tc99m Mebrofenin. The route of agent administration: Intravenous TECHNIQUE: Serial imaging right upper quadrant up to 60 minutes following injection of radionuclide. LIMITATIONS: None. FINDINGS: LIVER: Normal visualization without areas of photopenia. INTRAHEPATIC BILE DUCTS: Normal size and no delay in visualization. COMMON BILE DUCT: Normal without dilatation. GALLBLADDER: Normal visualization. PHYSICAL RESPONSE: Patients presenting complaint was not reproduced. OTHER: No other significant finding. IMPRESSION: NORMAL STUDY WITHOUT CYSTIC OR COMMON DUCT OBSTRUCTION. TECHNICAL DOCUMENTATION: JOB ID: [id number] [email or web address]- All Rights Reserved Reading location - IP/workstation name: [email or web address]
== END ==
LOC: RAD 08:13
PROVIDERS: ATTEND Internal Medicine
DX: R10.11 Right upper quadrant pain (principal); R11.2 Nausea with vomiting, unspecified
CPT/HCPCS: 78227; J2805; A9537; Q9969

== ENCOUNTER → 2019-07-10 | Outpatient (CLI) | payer OTHER | LOC: CCC 11:08 | DX: R07.9 Chest pain, unspecified (principal) | CPT/HCPCS: 36415; 83880 ==

== ENCOUNTER 2019-11-18 14:15 | Inpatient (IN) | payer OTHER ==
--- NOTE | 2019-11-18 15:09 | ER Document Report ---
ED Medical Screen (RME) - General Chief Complaint: Abdominal Injury Stated Complaint: ABDOMINAL PAIN Time Seen by Provider: 11/18/19 14:54 Primary Care Provider: SARA WORTHINGTON MD [Primary Care Provider] - Follow up as needed Mode of Arrival: Ambulatory Information source: Patient Notes: 64-year-old female patient with known history of gallstones presents the [facility] department with epigastric pain, chest pain and right upper quadrant abdominal pain. Patient reports worsening today. Reports nausea with vomiting. Denies fevers or diarrhea. Tenderness over the epigastric area and right upper quadrant. I have greeted and performed a rapid initial assessment of this patient. A comprehensive ED assessment and evaluation of the patient, analysis of test results and completion of the medical decision making process will be conducted by additional ED providers. I have specifically instructed the patient or family members with the patient to immediately return to any nursing staff should anything change in the patient's condition or with their chief complaint. TRAVEL OUTSIDE OF THE [place] IN LAST 30 DAYS: No - Related Data Allergies/Adverse Reactions: No Known Allergies Allergy (Verified 11/18/19 14:52) Home Medications: lasix. flecainide. metoprolol. eliquis. atorvastatin. omeprazole. calcium mag and zinc. linzessescitalopram. vitamin d3. vitamin b12. symbicort. spiriva. flonase. xopenex. nebs - levalbuterol Past Medical History - Social History Chew tobacco use (# tins/day): No Frequency of alcohol use: None Drug Abuse: None - Past Medical History Cardiac Medical History: Reports: Hx Atrial Fibrillation, Hx Hypercholesterolemia, Hx Hypertension Pulmonary Medical History: Reports: Hx Pneumonia - FUNGAL PNA? 2018 Renal/ Medical History: Denies: Hx Peritoneal Dialysis GI Medical History: Reports: Hx Gastroesophageal Reflux Disease Psychiatric Medical History: Denies: Hx Depression Past Surgical History: Reports: Hx Section, Hx Thyroid Surgery, Other - Goiter removal from thyroid a few years ago. - Immunizations Immunizations up to date: Yes Hx Diphtheria, Pertussis, Tetanus Vaccination: Yes Physical Exam - Vital signs Vitals: Temp Pulse Resp BP Pulse Ox 98.0 F 61 16 171/78 H 96 11/18/19 14:37 11/18/19 14:37 11/18/19 14:37 11/18/19 14:37 11/18/19 14:37 Course - Vital Signs Vital signs: Temp Pulse Resp BP Pulse Ox 98.0 F 61 16 171/78 H 96 11/18/19 14:37 11/18/19 14:37 11/18/19 14:37 11/18/19 14:37 11/18/19 14:37 Doctor's Discharge - Discharge Referrals: SARA WORTHINGTON MD [Primary Care Provider] - Follow up as needed
[2019-11-18 15:45] LABS: ABSOLUTE BASOPHILS # (AUTO) 0.1 10^3/uL (0.0-0.2); ABSOLUTE EOSINOPHILS # (AUTO) 0.2 10^3/uL (0.0-0.6); ABSOLUTE LYMPHOCYTES (AUTO) 2.1 10^3/uL (0.5-4.7); ABSOLUTE MONOCYTES (AUTO) 0.6 10^3/uL (0.1-1.4); ABSOLUTE NEUT (AUTO) 9.2 10^3/uL (1.7-8.2); BASOPHILS % (AUTO) 0.6 % (0-2); EOSINOPHILS % (AUTO) 1.6 % (0-6); HEMATOCRIT 41.5 % (36.0-47.0); HEMOGLOBIN 13.7 g/dL (12.0-15.5); LYMPHOCYTES % (AUTO) 16.9 % (13-45); MEAN CORPUSCULAR HEMOGLOBIN 30.7 pg (27.0-33.4); MEAN CORPUSCULAR HGB CONC 32.9 g/dL (32.0-36.0); MEAN CORPUSCULAR VOLUME 93 fl (80-97); MONOCYTES % (AUTO) 5.3 % (3-13); PLATELET COUNT 251 10^3/uL (150-450); RED BLOOD COUNT 4.46 10^6/uL (3.72-5.28); SEGMENTED NEUTROPHILS % (AUTO) 75.6 % (42-78); TOTAL CELLS COUNTED % (AUTO) 100 %; WHITE BLOOD COUNT 12.2 10^3/uL (4.0-10.5)
[2019-11-18 16:06] LABS: ALBUMIN 3.8 g/dL (3.5-5.0); ALKALINE PHOSPHATASE 145 U/L (38-126); ANION GAP 7 (5-19); ASPARTATE AMINO TRANSFERASE 34 U/L (14-36); BILIRUBIN,DIRECT 0.2 mg/dL (0.0-0.4); BILIRUBIN,TOTAL 0.5 mg/dL (0.2-1.3); BLOOD UREA NITROGEN 10 mg/dL (7-20); CALCIUM 9.2 mg/dL (8.4-10.2); CARBON DIOXIDE 29 mmol/L (22-30); CHLORIDE 103 mmol/L (98-107); GLUCOSE 109 mg/dL (75-110); POTASSIUM 4.5 mmol/L (3.6-5.0); TOTAL PROTEIN 7.1 g/dL (6.3-8.2)
[2019-11-18 16:51] LABS: APPEARANCE,URINE CLEAR; BILIRUBIN,URINE NEGATIVE (NEGATIVE); COLOR,URINE YELLOW; GLUCOSE, URINE NEGATIVE (NEGATIVE); KETONES,URINE NEGATIVE (NEGATIVE); LEUKOCYTE ESTERASE,URINE NEGATIVE (NEGATIVE); NITRITE,URINE NEGATIVE (NEGATIVE); PROTEIN,URINE NEGATIVE (NEGATIVE); URINE SPECIFIC GRAVITY 1.009; UROBILINOGEN,URINE NEGATIVE mg/dL (<2.0)
[2019-11-18] MEDS ORDERED: NORMAL SALINE 1000 ML 1,000 ML IV ONE (18:19)
[2019-11-18] MEDS ORDERED: ONDANSETRON HCL INJ/PF 4 MG/2 ML SDV IV ONE (18:19)
[2019-11-18] MEDS ORDERED: AMPICILLIN SOD/SULBACTAM 3 GM VIAL IV ONE (18:24)
--- NOTE | 2019-11-18 18:36 | ER Document Report ---
ED GI/ - General Chief Complaint: Abdominal Injury Stated Complaint: ABDOMINAL PAIN Time Seen by Provider: 11/18/19 14:54 Mode of Arrival: Ambulatory Information source: Patient Notes: 64-year-old female presents to ED for complaint of right upper quadrant abdominal pain nausea and vomiting since morning. She states she has a known history of gallstones. She states they found them about 8 or 9 months ago but due to her having A. fib they did not take care of it at that time because she was having no pain. She states this morning she had abdominal pain with severe pain to the back between her shoulder blades with nausea and vomiting. She states she has not had any fever and she has not had any diarrhea. She is alert oriented respirations regular nonlabored at this time. She states this morning her pain was a 50 out of 5 now is about a 2-1/2 to 3 out of 5. She states her pain is sharp and goes straight through to the back between the shoulder blades. TRAVEL OUTSIDE OF THE [place] IN LAST 30 DAYS: No - HPI Patient complains to provider of: Abdominal pain, Vomiting Onset: This morning Timing/Duration: Better Quality of pain: Sharp Severity at maximum: Severe Severity in ED: Moderate Pain Level: 3 Location: RUQ - Right upper quadrant epigastric through to the between the shoulder blades Associated symptoms: Nausea, Vomiting. denies: Diarrhea, Fever Exacerbated by: Movement Relieved by: Denies Similar symptoms previously: No Recently seen / treated by doctor: No - Related Data Allergies/Adverse Reactions: No Known Allergies Allergy (Verified 11/18/19 14:52) Home Medications: lasix. flecainide. metoprolol. eliquis. atorvastatin. omeprazole. calcium mag and zinc. linzessescitalopram. vitamin d3. vitamin b12. symbicort. spiriva. flonase. xopenex. nebs - levalbuterol Past Medical History - General Information source: Patient - Social History Smoking Status: Current Every Day Smoker Cigarette use (# per day): Yes - 4 or 5 cigarettes a day Chew tobacco use (# tins/day): No Smoking Education Provided: Yes - 4 minutes Frequency of alcohol use: None Drug Abuse: None Lives with: Family Family History: COPD Patient has suicidal ideation: No Patient has homicidal ideation: No - Past Medical History Cardiac Medical History: Reports: Hx Atrial Fibrillation, Hx Hypercholesterolemia, Hx Hypertension Pulmonary Medical History: Reports: Hx Pneumonia - FUNGAL PNA? 2018 EENT Medical History: Reports: None Neurological Medical History: Reports: None Endocrine Medical History: Reports: None Renal/ Medical History: Reports: None Malignancy Medical History: Reports: None GI Medical History: Reports: Hx Gastroesophageal Reflux Disease, Other - You were seen for pain in your abdomen that is likely related to gallstones Musculoskeletal Medical History: Reports None Skin Medical History: Reports None Psychiatric Medical History: Reports: None Traumatic Medical History: Reports: None Infectious Medical History: Reports: None Past Surgical History: Reports: Hx Section - X2, Hx Thyroid Surgery - Goiter removal from thyroid a few years ago. - Immunizations Immunizations up to date: Yes Hx Diphtheria, Pertussis, Tetanus Vaccination: Yes Hx Pneumococcal Vaccination: 11/14/17 Review of Systems - Review of Systems Constitutional: No symptoms reported, Recent illness EENT: No symptoms reported Cardiovascular: No symptoms reported Respiratory: No symptoms reported Gastrointestinal: Abdominal pain, Nausea, Vomiting. denies: Diarrhea Genitourinary: No symptoms reported Female Genitourinary: No symptoms reported Musculoskeletal: No symptoms reported Skin: No symptoms reported Hematologic/Lymphatic: No symptoms reported Neurological/Psychological: No symptoms reported -: Yes All other systems reviewed and negative Physical Exam - Vital signs Vitals: Temp Pulse Resp BP Pulse Ox 98.0 F 61 16 171/78 H 96 11/18/19 14:37 11/18/19 14:37 11/18/19 14:37 11/18/19 14:37 11/18/19 14:37 Interpretation: Normal - General General appearance: Appears well, Alert - HEENT Head: Normocephalic, Atraumatic Eyes: Normal Pupils: PERRL - Respiratory Respiratory status: No respiratory distress Chest status: Nontender Breath sounds: Normal Chest palpation: Normal - Cardiovascular Rhythm: Regular Heart sounds: Normal auscultation Murmur: No - Abdominal Inspection: Normal Distension: No distension Bowel sounds: Normal Tenderness: Tender - Epigastric and right upper quadrant Organomegaly: No organomegaly - Back Back: Normal, Nontender - Extremities General upper extremity: Normal inspection, Nontender, Normal color, Normal ROM, Normal temperature General lower extremity: Normal inspection, Nontender, Normal color, Normal ROM, Normal temperature, Normal weight bearing. No: Mile's sign - Neurological Neuro grossly intact: Yes Cognition: Normal Orientation: AAOx4 Adrián Coma Scale Eye Opening: Spontaneous Adrián Coma Scale Verbal: Oriented York Coma Scale Motor: Obeys Commands Adrián Coma Scale Total: 15 Speech: Normal Motor strength normal: LUE, RUE, LLE, RLE Sensory: Normal - Psychological Associated symptoms: Normal affect, Normal mood - Skin Skin Temperature: Warm Skin Moisture: Dry Skin Color: Normal Course - Re-evaluation Re-evalutation: 11/18/19 18:[address] Crystal who stated that IV fluids, IV antibiotics and nausea medicine should be given to the patient and patient should be kept n.p.o. until he examined the patient. - Vital Signs Vital signs: Temp Pulse Resp BP Pulse Ox 97.7 F 50 L 27 H 109/54 L 96 11/18/19 20:50 11/18/19 21:16 11/18/19 22:00 11/18/19 20:50 11/18/19 22:00 - Laboratory Result Diagrams: 11/18/19 15:15 11/18/19 15:15 Laboratory results interpreted by me: 11/18/19 11/18/19 15:15 15:15 WBC 12.2 H Absolute Neuts (auto) 9.2 H Alkaline Phosphatase 145 H Discharge - Discharge Clinical Impression: Cholecystitis Disposition: ADMITTED INPATIENT Admitting Provider: Sorin (Hospitalist) Unit Admitted: Telemetry
[2019-11-18] MEDS ORDERED: LEVALBUTEROL HCL NEB 1.25 MG/3 ML AMPUL NEB PRN (19:23)
[2019-11-18] MEDS ORDERED: IPRATROPIUM BROMIDE 0.02% NEB 0.5 MG/2.5 ML AMPUL NEB PRN (19:23)
[2019-11-18] MEDS ORDERED: ONDANSETRON HCL INJ/PF 4 MG/2 ML SDV IV PRN (19:24)
[2019-11-18] MEDS ORDERED: HYDRALAZINE HCL INJ/PF 20 MG/1 ML SDV IV PRN (19:27)
--- NOTE | 2019-11-18 19:38 | PDOC H&P ---
History of Present Illness Admission Date/PCP: PRANAV HENDRICKS MD Patient complains of: Abdominal pain History of Present Illness: PRISCA ABREU I is a 64 year old female Presents to the emergency department via ground rescue complaining of abdominal pain nausea, anorexia worse this morning. Patient was evaluated in the emergency department found to have right upper quadrant tenderness, gallbladder ultrasound revealed cholelithiasis. Patient has a known history of gallbladder disease, but was not referred for surgical intervention as of concomitant medica l problems. She had a HIDA scan, normal in June 2019, and a upper GI with barium in May 2019 which showed gastroesophageal reflux disease only. She has had a colonoscopy in the remote past. She has been treated by Dr. Aliyah Hendricks of the [facility]. Surgery has been consulted, and she is advised admission. Patient is being admitted to the surgical service with hospitalist service consulting. Past Medical History Cardiac Medical History: Reports: Atrial Fibrillation, Hyperlipidema, Hypertension Pulmonary Medical History: Reports: Pneumonia - FUNGAL PNA? 2018 EENT Medical History: Reports: None Neurological Medical History: Reports: None Endocrine Medical History: Reports: None Renal/ Medical History: Reports: None Malignancy Medical History: Reports: None GI Medical History: Reports: Gastroesophageal Reflux Disease, Other - You were seen for pain in your abdomen that is likely related to gallstones Musculoskeltal Medical History: Reports: None Skin Medical History: Reports: None Psychiatric Medical History: Reports: None Denies: Depression Traumatic Medical History: Reports: None Infectious Medical History: Reports: None Past Surgical History Past Surgical History: Attempted atrial ablation, failed; Hemithyroidectomy for benign disease. Patient does not take thyroid replacement medication Past Surgical History: Reports: Section - X2, Other - Goiter removal from thyroid a few years ago. Social History Lives with: Family Smoking Status: Current Every Day Smoker Electronic Cigarette use?: No Last Time Smoked: Patient smokes 5 cigarettes a day Frequency of Alcohol Use: None Hx Recreational Drug Use: No Drugs: None Hx Prescription Drug Abuse: No Family History Family History: COPD, Other - Malignancy Parental Family History Reviewed: Yes Children Family History Reviewed: Yes Sibling(s) Family History Reviewed.: Yes Medication/Allergy Home Medications: Atorvastatin Calcium [Lipitor 40 mg Tablet] 40 mg PO QHS 01/05/19 Calcium/Magnesium/Zinc [Izseuaq-Anpsspasd-Tgll Tablet] 2 each PO QHS 01/05/19 Cholecalciferol (Vitamin D3) [Vitamin D3 5000 unit Capsule] 5,000 unit PO QHS 01/05/19 Escitalopram Oxalate [Lexapro 10 mg Tablet] 10 mg PO QHS 01/05/19 Flecainide Acetate [Tambocor 100 mg Tablet] 50 mg PO QHS 01/05/19 Fluticasone Propionate [Flonase Nasal [place] 50 Mcg/[place] 16 gm] 1 spray NASL DAILY 01/05/19 Levalbuterol Tartrate [Levalbuterol Tartrate Hfa] 2 puff IH Q6HP PRN 01/05/19 Metoprolol Succinate [Toprol Xl 25 mg Tab.sr] 25 mg PO DAILY 01/05/19 Omeprazole 20 mg PO DAILY 01/05/19 Acetaminophen [Tylenol 325 mg Tablet] 650 mg PO Q4HP PRN tablet 01/13/19 Apixaban [Eliquis 5 mg Tablet] 5 mg PO Q12 tablet 01/13/19 Fluticasone Propionate [Flonase Nasal [place] 50 Mcg/[place] 16 gm] 2 spray NASL Q12 spray.pump 01/13/19 Guaifenesin [Robitussin Syrup 200 mg/10 ml Ud Cup] 200 mg PO QIDP PRN udc 01/13/19 Levalbuterol HCl [Xopenex Neb 1.25 mg/3 ml Ampul] 1.25 mg NEB RTQ6HP PRN #120 vial.neb 01/13/19 Prednisone [Deltasone 20 mg Tablet] 20 mg PO BID #10 tablet 01/13/19 Allergies/Adverse Reactions: No Known Allergies Allergy (Verified 11/18/19 14:52) Review of Systems Constitutional: PRESENT: weakness Eyes: ABSENT: visual disturbances Ears: ABSENT: hearing changes Cardiovascular: PRESENT: other - Patient reports chronic shortness of breath; last echocardiogram greater than a year ago AK: Patient sees Dr. Shlomo Chaudhary in [place], and Dr. Polo in [place]. Respiratory: PRESENT: other - Chronic shortness of breath, and wheezing. Gastrointestinal: PRESENT: as per HPI, other - Some nausea no diarrhea Genitourinary: ABSENT: dysuria, hematuria Musculoskeletal: ABSENT: joint swelling Integumentary: ABSENT: rash, wounds Neurological: ABSENT: abnormal gait, abnormal speech, confusion, dizziness, focal weakness, syncope Psychiatric: ABSENT: anxiety, depression, homidical ideation, suicidal ideation Endocrine: ABSENT: cold intolerance, heat intolerance, polydipsia, polyuria Hematologic/Lymphatic: ABSENT: easy bleeding, easy bruising Physical Exam Vital Signs: Temp Pulse Resp BP Pulse Ox 98.0 F 61 16 171/78 H 96 11/18/19 14:37 11/18/19 14:37 11/18/19 14:37 11/18/19 14:37 11/18/19 14:37 Intake & Output 11/17/19 11/18/19 11/19/19 06:59 06:59 06:59 Weight 117.2 kg General appearance: PRESENT: no acute distress Head exam: PRESENT: normocephalic Eye exam: PRESENT: EOMI Mouth exam: PRESENT: dry mucosa, neck supple Neck exam: PRESENT: full ROM Respiratory exam: PRESENT: wheezes - Wheezing bilaterally Cardiovascular exam: PRESENT: RRR - No apparent murmur Vascular exam: PRESENT: normal capillary refill GI/Abdominal exam: PRESENT: other - Soft, but tender right upper quadrant to moderate palpation. Rectal exam: PRESENT: deferred Extremities exam: PRESENT: full ROM, other - Palpable dorsalis pedis and posterior tibial pulses Musculoskeletal exam: PRESENT: full ROM, other - No significant pedal edema Neurological exam: PRESENT: oriented to person, oriented to place, oriented to time, oriented to situation Psychiatric exam: PRESENT: anxious Results Laboratory Results: 11/18/19 15:15 11/18/19 15:15 11/18/19 11/18/19 11/18/19 15:15 15:15 15:55 WBC 12.2 H RBC 4.46 Hgb 13.7 Hct 41.5 MCV 93 MCH 30.7 MCHC 32.9 RDW 14.0 Plt Count 251 Seg Neutrophils % 75.6 Sodium 138.6 Potassium 4.5 Chloride 103 Carbon Dioxide 29 Anion Gap 7 BUN 10 Creatinine 0.83 Est GFR ( Amer) > 60 Glucose 109 Calcium 9.2 Total Bilirubin 0.5 AST 34 Alkaline Phosphatase 145 H Total Protein 7.1 Albumin 3.8 Lipase 91.4 Urine Color YELLOW Urine Appearance CLEAR Urine pH 7.0 Ur Specific [place] 1.009 Urine Protein NEGATIVE Urine Glucose (UA) NEGATIVE Urine Ketones NEGATIVE Urine Blood NEGATIVE Urine Nitrite NEGATIVE Ur Leukocyte Esterase NEGATIVE Urine WBC (Auto) 0 Urine RBC (Auto) 0 11/18/19 15:15 Troponin I < 0.012 Assessment & Plan - Diagnosis (1) Cholecystitis Is this a current diagnosis for this admission?: Yes Plan: Impression: Acute superimposed on chronic cholecystitis with cholelithiasis based on clinical history, and gallbladder ultrasound demonstrating gallstones. She is not septic, and no evidence of multiorgan system failure. Plan: 1. Admit to surgical service, keep on clear liquids. Will maintain on IV fluids and intravenous antibiotics. 2. I have spoken with Dr. Juarez Rowell, hospitalist, who will consult on patileydi t, specifically assisting with management of chronic obstructive pulmonary disease, wheezing. 3. I have consulted Dr. Jose Angel Enriquez, fashion model, who will evaluate patient in preparation for general anesthesia. 4. Will hold Eliquis; anticipate preoperative cardiac and pulmonary evaluation taking place over the next 12 to 24 hours. Anticipate interval cholecystectomy this hospitalization possibly November 20. 5. I have explained the above to the patient and her at bedside. I believe they understand agree to proceed. (2) COPD (chronic obstructive pulmonary disease) Is this a current diagnosis for this admission?: Yes (3) Smoker Is this a current diagnosis for this admission?: Yes (4) Obesity Qualifiers: Body mass index: BMI 40.0-44.9 Is this a current diagnosis for this admission?: Yes (5) Anticoagulated Is this a current diagnosis for this admission?: Yes (6) Atrial fibrillation Is this a current diagnosis for this admission?: Yes Plan: Rate controlled with beta-letty (7) HTN (hypertension) Qualifiers: Is this a current diagnosis for this admission?: Yes (8) Hyperlipidemia Qualifiers: Is this a current diagnosis for this admission?: Yes (9) Wheezing Is this a current diagnosis for this admission?: Yes - Time Time Spent: 50 to 70 Minutes Critical Time spent with patient: 15-24 minutes Medications reviewed and adjusted accordingly: Yes Anticipated discharge: Home - Inpatient Certification Based on my medical assessment, after consideration of the patient's comorbidities, presenting symptoms, or acuity I expect that the services needed warrant INPATIENT care.: Yes I certify that my determination is in accordance with my understanding of Medicare's requirements for reasonable and necessary INPATIENT services [42 CFR 412.3e].: Yes Medical Necessity: Need for Pain Control, Need for IV Antibiotics, Need for Surgery
--- NOTE | 2019-11-18 19:38 | RADIOLOGY REPORT (SQ) ---
EXAM DESCRIPTION: U/S ABDOMEN LIMITED W/O DOP COMPLETED DATE/TIME: 11/18/2019 3:55 pm REASON FOR STUDY: epigastric pain hx of gallstones COMPARISON: None. TECHNIQUE: Dynamic and static grayscale images acquired of the abdomen and recorded on PACS. Additio nal selected color Doppler and spectral images recorded. LIMITATIONS: Body habitus and bowel gas. FINDINGS: PANCREAS: No masses. Visualized pancreatic duct normal caliber. LIVER: No masses. Increased echogenicity. LIVER VASCULATURE: Normal directional flow of the main portal vein and hepatic veins. GALLBLADDER: No discrete calculi identified. There may be a small volume of sludge. Normal wall thi ckness. No pericholecystic fluid. ULTRASOUND-DETECTED HICKEY'S SIGN: Not documented. INTRAHEPATIC DUCTS AND COMMON DUCT: CBD and intrahepatic ducts normal caliber. No filling defects. INFERIOR VENA CAVA: Normal flow. AORTA: No aneurysm. RIGHT KIDNEY: Normal size. Normal echogenicity. No solid or suspicious masses. No hydronephrosis. No calcifications. PERITONEAL AND RIGHT PLEURAL SPACE: No ascites or effusions. OTHER: No other significant findings. IMPRESSION: 1. Examination is limited by body habitus and bowel gas. No discrete gallstones identi fied. There may be a small volume of sludge in the gallbladder. No gallbladder wall thickening. No pericholecystic fluid. No biliary ductal dilation. 2. Sonographic Hickey sign is not documented. By roll shop supervisor report, patient complains of midline ab dominal pain radiating to back. 3. Hepatic steatosis. TECHNICAL DOCUMENTATION: JOB ID: [id number] [employer]- All Rights Reserved Reading location - IP/workstation name: [email or web address]
--- NOTE | 2019-11-18 20:27 | PDOC CONSULTATION ---
Consultation Consult Date: 11/18/19 Attending physician:: KAREEM MULTANI Provider Consulted: KENDY CUNNINGHAM Consult reason:: Preoperative cardiovascular assessment History of Present Illness Admission Date/PCP: 11/18/19 19:43 PRANAV HENDRICKS MD Patient complains of: Abdominal pain History of Present Illness: PRISCA ABREU I is a 64 year old female With medical history significant for the following problems 1. Systemic hypertension 2. Paroxysmal atrial fibrillation 3. Obesity 4. Nicotine dependence-cigarettes 5. Probable diastolic heart failure 6. Systemic anticoagulation-apixaban Patient had acute onset abdominal pain nausea and vomiting this morning. She has been evaluated by surgery for acute cholecystitis and cholecystectomy is being planned. Patient is on systemic anticoagulation with apixaban. Per patient she was initially diagnosed with atrial fibrillation approximately 2 years ago. She has been on rhythm control strategy in terms of management with flecainide together with metoprolol. Apparently there was an aborted attempt at catheter ablation. In the previous year patient has had an echocardiogram. A stress test was performed 6 months ago which was apparently unremarkable. I do not have access to these reports at the moment. No previous surgeries other than 30 years ago. This was uneventful and there were no complications. Family history significant for cancers. Colon cancer in the brother and breast cancer in the sister. Patient continues to smoke cigarettes. She smokes approximately 5 ci garettes/day. Past Medical History Cardiac Medical History: Reports: Atrial Fibrillation, Hyperlipidema, Hypertension Pulmonary Medical History: Reports: Pneumonia - FUNGAL PNA? 2018 EENT Medical History: Reports: None Neurological Medical History: Reports: None Endocrine Medical History: Reports: None Renal/ Medical History: Reports: None Malignancy Medical History: Reports: None GI Medical History: Reports: Gastroesophageal Reflux Disease, Other - You were seen for pain in your abdomen that is likely related to gallstones Musculoskeltal Medical History: Reports: None Skin Medical History: Reports: None Psychiatric Medical History: Reports: None Denies: Depression Traumatic Medical History: Reports: None Infectious Medical History: Reports: None Past Surgical History Past Surgical History: Reports: Section - X2, Other - Goiter removal from thyroid a few years ago. Social History Lives with: Family Smoking Status: Current Every Day Smoker Electronic Cigarette use?: No Last Time Smoked: Patient smokes 5 cigarettes a day Frequency of Alcohol Use: None Hx Recreational Drug Use: No Drugs: None Hx Prescription Drug Abuse: No Family History Family History: COPD, Other - Malignancy Parental Family History Reviewed: Yes - No familial illness Children Family History Reviewed: NA Sibling(s) Family History Reviewed.: NA Medication/Allergy Home Medications: Atorvastatin Calcium [Lipitor 40 mg Tablet] 40 mg PO QHS 01/05/19 Calcium/Magnesium/Zinc [Ioziogp-Rchjtsopw-Ibgl Tablet] 2 each PO QHS 01/05/19 Cholecalciferol (Vitamin D3) [Vitamin D3 5000 unit Capsule] 5,000 unit PO QHS 01/05/19 Escitalopram Oxalate [Lexapro 10 mg Tablet] 10 mg PO QHS 01/05/19 Flecainide Acetate [Tambocor 100 mg Tablet] 50 mg PO QHS 01/05/19 Fluticasone Propionate [Flonase Nasal [place] 50 Mcg/[place] 16 gm] 1 spray NASL DAILY 01/05/19 Levalbuterol Tartrate [Levalbuterol Tartrate Hfa] 2 puff IH Q6HP PRN 01/05/19 Metoprolol Succinate [Toprol Xl 25 mg Tab.sr] 25 mg PO DAILY 01/05/19 Omeprazole 20 mg PO DAILY 01/05/19 Acetaminophen [Tylenol 325 mg Tablet] 650 mg PO Q4HP PRN tablet 01/13/19 Apixaban [Eliquis 5 mg Tablet] 5 mg PO Q12 tablet 01/13/19 Fluticasone Propionate [Flonase Nasal [place] 50 Mcg/[place] 16 gm] 2 spray NASL Q12 spray.pump 01/13/19 Guaifenesin [Robitussin Syrup 200 mg/10 ml Ud Cup] 200 mg PO QIDP PRN udc 01/13/19 Levalbuterol HCl [Xopenex Neb 1.25 mg/3 ml Ampul] 1.25 mg NEB RTQ6HP PRN #120 vial.neb 01/13/19 Prednisone [Deltasone 20 mg Tablet] 20 mg PO BID #10 tablet 01/13/19 Allergies/Adverse Reactions: No Known Allergies Allergy (Verified 11/18/19 14:52) Review of Systems Constitutional: PRESENT: as per HPI, weakness Cardiovascular: PRESENT: edema Respiratory: PRESENT: dyspnea Gastrointestinal: PRESENT: abdominal pain Neurological: PRESENT: as per HPI Physical Exam Vital Signs: Temp Pulse Resp BP Pulse Ox 98.4 F 58 L 18 121/66 95 11/18/19 20:11 11/18/19 20:11 11/18/19 20:11 11/18/19 20:11 11/18/19 20:11 Intake & Output 11/17/19 11/18/19 11/19/19 06:59 06:59 06:59 Weight 117.2 kg General appearance: PRESENT: no acute distress, cooperative, obese Head exam: PRESENT: atraumatic, normocephalic Eye exam: PRESENT: conjunctiva pink Mouth exam: PRESENT: dry mucosa Respiratory exam: PRESENT: clear to auscultation anat, symmetrical, unlabored Cardiovascular exam: PRESENT: RRR, +S1, +S2 Pulses: PRESENT: normal radial pulses GI/Abdominal exam: PRESENT: soft Rectal exam: PRESENT: deferred Extremities exam: PRESENT: pedal edema Skin exam: PRESENT: dry, intact, normal color Results Laboratory Results: 11/18/19 15:15 11/18/19 15:15 11/18/19 11/18/19 11/18/19 15:15 15:15 15:55 WBC 12.2 H RBC 4.46 Hgb 13.7 Hct 41.5 MCV 93 MCH 30.7 MCHC 32.9 RDW 14.0 Plt Count 251 Seg Neutrophils % 75.6 Sodium 138.6 Potassium 4.5 Chloride 103 Carbon Dioxide 29 Anion Gap 7 BUN 10 Creatinine 0.83 Est GFR ( Amer) > 60 Glucose 109 Calcium 9.2 Total Bilirubin 0.5 AST 34 Alkaline Phosphatase 145 H Total Protein 7.1 Albumin 3.8 Lipase 91.4 Urine Color YELLOW Urine Appearance CLEAR Urine pH 7.0 Ur Specific [place] 1.009 Urine Protein NEGATIVE Urine Glucose (UA) NEGATIVE Urine Ketones NEGATIVE Urine Blood NEGATIVE Urine Nitrite NEGATIVE Ur Leukocyte Esterase NEGATIVE Urine WBC (Auto) 0 Urine RBC (Auto) 0 11/18/19 15:15 Troponin I < 0.012 EKG Comments: Twelve-lead EKG independently reviewed by me. Sinus rhythm 60 bpm QTC is 460 ms Impressions: Abdomen Ultrasound 11/18/19 15:07 IMPRESSION: 1. Examination is limited by body habitus and bowel gas. No discrete gallstones identified. There may be a small volume of sludge in the gallbladder. No gallbladder wall thickening. No pericholecystic fluid. No biliary ductal dilation. 2. Sonographic Hickey sign is not documented. By wildlife biology internship report, patient complains of midline abdominal pain radiating to back. 3. Hepatic steatosis. Assessment & Plan - Diagnosis (1) Preop cardiovascular exam Is this a current diagnosis for this admission?: Yes Plan: Patient is an acceptable risk for planned surgery without further re- stratification. This is based on the nature of the surgery with symptomatic gallbladder disease. Patient does not have a history of angina and no prior coronary artery disease. In fact most recent stress test per patient which was about 6 months ago was unremarkable. Given the fact that most recent transthoracic echocardiogram was over a year ago we will repeat transthoracic echocardiogram. Patient's volume status is difficult to estimate and she has mild pedal edema on exam. Would continue current medications. From an anticoagulation standpoint for the planned surgery and systemic anticoagulation with apixaban can be stopped for 2 days and be resumed as soon as feasible. (2) Atrial fibrillation Is this a current diagnosis for this admission?: Yes Plan: Patient is being presently managed using a rhythm control strategy. Patient has been maintained on flecainide and metoprolol. EKG presently demonstrates sinus rhythm. Patient's stroke risk is increased and she is appropriately anticoagulated with apixaban. For the purpose of surgery apixaban can be omitted for 2 days prior to surgery and should be resumed as soon as feasible. (3) Smoker Is this a current diagnosis for this admission?: Yes Plan: Patient was counseled against cigarette smoking as this will adversely affect wound healing and is detrimental to cardiovascular health as well. - Notes Notes: We will obtain transthoracic echocardiogram For the purpose of surgery apixaban can be stopped but should be resumed as soon as feasible.
[2019-11-18] MEDS ORDERED: METOPROLOL TARTRATE 25 MG TABLET PO ONE (20:30)
[2019-11-18] MEDS ORDERED: AMPICILLIN SOD/SULBACTAM 3 GM VIAL IV PRN (20:32)
--- NOTE | 2019-11-18 20:37 | EKG REPORT ---
SEVERITY:- NORMAL ECG - SINUS RHYTHM : Confirmed by: Gael Bennett MD 18-Nov-2019 20:36:31
[2019-11-18] MEDS: LEVALBUTEROL HCL NEB 1.25 MG/3 ML AMPUL NEB SCH (21:07)
[2019-11-18] MEDS: IPRATROPIUM BROMIDE 0.02% NEB 0.5 MG/2.5 ML AMPUL NEB SCH (21:07)
[2019-11-18] MEDS: RINGERS SOLUTION,LACTATED 1,000 ML IV PRN (21:52)
[2019-11-18] MEDS: ACETAMINOPHEN 1,000 MG/100 ML RTUPB IV SCH (21:53)
[2019-11-18] MEDS ORDERED: FLECAINIDE ACETATE 100 MG TABLET PO ONE (23:30)
[2019-11-18] MEDS ORDERED: AMPICILLIN SOD/SULBACTAM 3 GM VIAL ONE (23:31)
[2019-11-18] MEDS ORDERED: FLECAINIDE ACETATE 100 MG TABLET ONE (23:31)
[2019-11-19] MEDS ORDERED: ACETAMINOPHEN INJ/PF 1000 MG/100 ML SDV IV SCH
[2019-11-19] MEDS: AMPICILLIN SODIUM/SULBACTAM NA 3 GM in NORMAL SALINE 100 ML IV SCH ×3 (02:08→18:23)
[2019-11-19] MEDS: LEVALBUTEROL HCL NEB 1.25 MG/3 ML AMPUL NEB SCH ×4 (02:13→20:15)
[2019-11-19] MEDS: IPRATROPIUM BROMIDE 0.02% NEB 0.5 MG/2.5 ML AMPUL NEB SCH ×4 (02:13→20:15)
[2019-11-19] MEDS: ACETAMINOPHEN 1,000 MG/100 ML RTUPB IV SCH ×4 (03:44→21:07)
--- NOTE | 2019-11-19 04:01 | PDOC CONSULTATION ---
Consultation Consult Date: 11/18/19 Attending physician:: MARTY DANIEL Provider Consulted: KAREEM MULTANI Consult reason:: copd History of Present Illness Admission Date/PCP: 11/18/19 19:43 PRANAV HENDRICKS MD Patient complains of: Nausea History of Present Illness: PRISCA ABREU I is a 64 year old female with a past medical history of morbid obesity, obstructive sleep apnea, COPD, chronic bronchitis, tobacco dependence and atrial fibrillation on Eliquis. She presents with 8 hours of nausea and vomiting. In the emergency room she is diagnosed with acute cholecystitis and admitted by surgery. She additionally complains of acute on chronic nonproductive cough and shortness of breath. She denies chest pain, orthopnea or edema, recent change in medications and has otherwise felt well. Past Medical History Cardiac Medical History: Reports: Atrial Fibrillation, Hyperlipidema, Hypertension Pulmonary Medical History: Reports: Bronchitis, Chronic Obstructive Pulmonary Di sease (COPD), Pneumonia - FUNGAL PNA? 2018, Sleep Apnea EENT Medical History: Reports: None Neurological Medical History: Reports: None Endocrine Medical History: Reports: None Renal/ Medical History: Reports: None Malignancy Medical History: Reports: None GI Medical History: Reports: Gastroesophageal Reflux Disease, Other - You were seen for pain in your abdomen that is likely related to gallstones Musculoskeltal Medical History: Reports: None Skin Medical History: Reports: None Psychiatric Medical History: Reports: None, Tobacco Dependency Denies: Depression Traumatic Medical History: Reports: None Infectious Medical History: Reports: None Past Surgical History Past Surgical History: Reports: Section - X2, Other - Goiter removal from thyroid a few years ago. Social History Information Source: Patient, [facility] Records Lives with: Family Smoking Status: Current Every Day Smoker Electronic Cigarette use?: No Last Time Smoked: Patient smokes 5 cigarettes a day Frequency of Alcohol Use: None Hx Recreational Drug Use: No Drugs: None Hx Prescription Drug Abuse: No - Advance Directive Resuscitation Status: Full Code Family History Family History: COPD Parental Family History Reviewed: Yes Children Family History Reviewed: Yes Sibling(s) Family History Reviewed.: Yes Medication/Allergy Home Medications: Atorvastatin Calcium [Lipitor 40 mg Tablet] 40 mg PO QHS 01/05/19 Calcium/Magnesium/Zinc [Zkcmtqm-Uzyqlqeim-Dipn Tablet] 2 each PO QHS 01/05/19 Cholecalciferol (Vitamin D3) [Vitamin D3 5000 unit Capsule] 5,000 unit PO QHS 01/05/19 Escitalopram Oxalate [Lexapro 10 mg Tablet] 10 mg PO QHS 01/05/19 Flecainide Acetate [Tambocor 100 mg Tablet] 50 mg PO QHS 01/05/19 Fluticasone Propionate [Flonase Nasal [place] 50 Mcg/[place] 16 gm] 1 spray NASL DAILY 01/05/19 Levalbuterol Tartrate [Levalbuterol Tartrate Hfa] 2 puff IH Q6HP PRN 01/05/19 Metoprolol Succinate [Toprol Xl 25 mg Tab.sr] 25 mg PO DAILY 01/05/19 Omeprazole 20 mg PO DAILY 01/05/19 Acetaminophen [Tylenol 325 mg Tablet] 650 mg PO Q4HP PRN tablet 01/13/19 Apixaban [Eliquis 5 mg Tablet] 5 mg PO Q12 tablet 01/13/19 Fluticasone Propionate [Flonase Nasal [place] 50 Mcg/[place] 16 gm] 2 spray NASL Q12 spray.pump 01/13/19 Guaifenesin [Robitussin Syrup 200 mg/10 ml Ud Cup] 200 mg PO QIDP PRN udc 01/13/19 Levalbuterol HCl [Xopenex Neb 1.25 mg/3 ml Ampul] 1.25 mg NEB RTQ6HP PRN #120 vial.neb 01/13/19 Prednisone [Deltasone 20 mg Tablet] 20 mg PO BID #10 tablet 01/13/19 Allergies/Adverse Reactions: No Known Allergies Allergy (Verified 11/18/19 14:52) Review of Systems Constitutional: ABSENT: chills, fever(s), headache(s), weight gain, weight loss Eyes: ABSENT: visual disturbances Ears: ABSENT: hearing changes Cardiovascular: ABSENT: chest pain, dyspnea on exertion, edema, orthropnea, palpitations Respiratory: ABSENT: cough, hemoptysis Gastrointestinal: ABSENT: abdominal pain, constipation, diarrhea, hematemesis, hematochezia, nausea, vomiting Genitourinary: ABSENT: dysuria, hematuria Musculoskeletal: ABSENT: joint swelling Integumentary: ABSENT: rash, wounds Neurological: ABSENT: abnormal gait, abnormal speech, confusion, dizziness, focal weakness, syncope Psychiatric: ABSENT: anxiety, depression, homidical ideation, suicidal ideation Endocrine: ABSENT: cold intolerance, heat intolerance, polydipsia, polyuria Hematologic/Lymphatic: ABSENT: easy bleeding, easy bruising Physical Exam Vital Signs: Temp Pulse Resp BP Pulse Ox 97.7 F 66 17 109/54 L 96 11/19/19 01:19 11/19/19 02:00 11/19/19 01:19 11/19/19 01:19 11/19/19 01:19 Intake & Output 11/17/19 11/18/19 11/19/19 11:59 11:59 11:59 Intake Total 1700 Balance 1700 Weight 114.3 kg General appearance: PRESENT: cooperative, mild distress, morbidly obese, well- developed, well-nourished Head exam: PRESENT: atraumatic, normocephalic Eye exam: PRESENT: conjunctiva pink, EOMI, PERRLA. ABSENT: scleral icterus Ear exam: PRESENT: normal external ear exam Mouth exam: PRESENT: moist, tongue midline Neck exam: ABSENT: carotid bruit, JVD, lymphadenopathy, thyromegaly Respiratory exam: PRESENT: crackles, decreased breath sounds, prolonged expiratory phas, tachypnea. ABSENT: rales, rhonchi Cardiovascular exam: PRESENT: RRR. ABSENT: diastolic murmur, rubs, systolic murmur Pulses: PRESENT: normal dorsalis pedis pul Vascular exam: PRESENT: normal capillary refill GI/Abdominal exam: PRESENT: normal bowel sounds, soft. ABSENT: distended, guarding, mass, organolmegaly, rebound, tenderness Rectal exam: PRESENT: deferred Extremities exam: PRESENT: full ROM. ABSENT: calf tenderness, clubbing, pedal edema, +1 edema Neurological exam: PRESENT: alert, awake, oriented to person, oriented to place, oriented to time, oriented to situation, CN II-XII grossly intact. ABSENT: motor sensory deficit Psychiatric exam: PRESENT: appropriate affect, normal mood. ABSENT: homicidal ideation, suicidal ideation Skin exam: PRESENT: dry, intact, warm. ABSENT: cyanosis, rash Results Laboratory Results: 11/18/19 15:15 11/18/19 15:15 11/18/19 11/18/19 11/18/19 15:15 15:15 15:55 WBC 12.2 H RBC 4.46 Hgb 13.7 Hct 41.5 MCV 93 MCH 30.7 MCHC 32.9 RDW 14.0 Plt Count 251 Seg Neutrophils % 75.6 Sodium 138.6 Potassium 4.5 Chloride 103 Carbon Dioxide 29 Anion Gap 7 BUN 10 Creatinine 0.83 Est GFR ( Amer) > 60 Glucose 109 Calcium 9.2 Total Bilirubin 0.5 AST 34 Alkaline Phosphatase 145 H Total Protein 7.1 Albumin 3.8 Lipase 91.4 Urine Color YELLOW Urine Appearance CLEAR Urine pH 7.0 Ur Specific [place] 1.009 Urine Protein NEGATIVE Urine Glucose (UA) NEGATIVE Urine Ketones NEGATIVE Urine Blood NEGATIVE Urine Nitrite NEGATIVE Ur Leukocyte Esterase NEGATIVE Urine WBC (Auto) 0 Urine RBC (Auto) 0 11/18/19 15:15 Troponin I < 0.012 Impressions: Abdomen Ultrasound 11/18/19 15:07 IMPRESSION: 1. Examination is limited by body habitus and bowel gas. No discrete gallstones identified. There may be a small volume of sludge in the gallbladder. No gallbladder wall thickening. No pericholecystic fluid. No biliary ductal dilation. 2. Sonographic Hickey sign is not documented. By bookstore manager report, patient complains of midline abdominal pain radiating to back. 3. Hepatic steatosis. Assessment and Plan - Diagnosis (1) Acute bronchitis Is this a current diagnosis for this admission?: Yes Plan: Supplemental oxygen, empiric antibiotics, aggressive pulmonary toilet with incentive spirometry and flutter valve. (2) COPD exacerbation Is this a current diagnosis for this admission?: Yes Plan: Secondary to #1, empiric antibiotic, albuterol and Atrovent. Anticipate reduce and optimize pulmonary risk in 24 to 48 hours with reevaluation following ordered treatment. (3) Obstructive sleep apnea Is this a current diagnosis for this admission?: Yes Plan: BiPAP while asleep, avoid cervical flexion (4) Smoker Is this a current diagnosis for this admission?: Yes Plan: Tobacco cessation counseling, declines nicotine replacement options - Time Time Spent with patient: 25-34 minutes - Inpatient Certification Medical Necessity: Need Close Monitoring Due to Risk of Patient Decompensation
[2019-11-19] MEDS: RINGERS SOLUTION,LACTATED 1,000 ML IV PRN (09:21)
[2019-11-19] MEDS ORDERED: METOPROLOL TARTRATE 25 MG TABLET PO SCH (10:00)
[2019-11-19] MEDS ORDERED: FLECAINIDE ACETATE 100 MG TABLET PO SCH (10:00)
[2019-11-19] MEDS: FLUTICASONE NASAL SPRAY 50 MCG/SPRY 120 SPRAY/16 GM NASL SCH ×2 (10:49→21:10)
--- NOTE | 2019-11-19 11:45 | PDOC PROGRESS REPORT ---
Subjective Progress Note for:: 11/19/19 Subjective:: Less pains in her right upper quadrant Reason For Visit: SYMPTOMATIC CHOLELITHIASIS WITH CHOLECYSTITIS Physical Exam Vital Signs: Temp Pulse Resp BP Pulse Ox 97.5 F 72 16 103/47 L 95 11/19/19 07:18 11/19/19 09:12 11/19/19 09:12 11/19/19 07:18 11/19/19 09:12 Intake & Output 11/18/19 11/19/19 11/20/19 06:59 06:59 06:59 Intake Total 2950 200 Balance 2950 200 Weight 114.3 kg Exam: Mild tenderness in the right upper quadrant Results Laboratory Results: 11/18/19 15:15 11/18/19 15:15 11/18/19 11/18/19 11/18/19 15:15 15:15 15:55 WBC 12.2 H RBC 4.46 Hgb 13.7 Hct 41.5 MCV 93 MCH 30.7 MCHC 32.9 RDW 14.0 Plt Count 251 Seg Neutrophils % 75.6 Sodium 138.6 Potassium 4.5 Chloride 103 Carbon Dioxide 29 Anion Gap 7 BUN 10 Creatinine 0.83 Est GFR ( Amer) > 60 Glucose 109 Calcium 9.2 Total Bilirubin 0.5 AST 34 Alkaline Phosphatase 145 H Total Protein 7.1 Albumin 3.8 Lipase 91.4 Urine Color YELLOW Urine Appearance CLEAR Urine pH 7.0 Ur Specific [place] 1.009 Urine Protein NEGATIVE Urine Glucose (UA) NEGATIVE Urine Ketones NEGATIVE Urine Blood NEGATIVE Urine Nitrite NEGATIVE Ur Leukocyte Esterase NEGATIVE Urine WBC (Auto) 0 Urine RBC (Auto) 0 11/18/19 15:15 Troponin I < 0.012 Impressions: Abdomen Ultrasound 11/18/19 15:07 IMPRESSION: 1. Examination is limited by body habitus and bowel gas. No discrete gallstones identified. There may be a small volume of sludge in the gallbladder. No gallbladder wall thickening. No pericholecystic fluid. No biliary ductal dilation. 2. Sonographic Hickey sign is not documented. By sports manager report, patient complains of midline abdominal pain radiating to back. 3. Hepatic steatosis. Assessment & Plan - Diagnosis (1) Cholecystitis Is this a current diagnosis for this admission?: Yes (2) Obstructive sleep apnea Is this a current diagnosis for this admission?: Yes (3) Smoker Is this a current diagnosis for this admission?: Yes (4) Atrial fibrillation Is this a current diagnosis for this admission?: Yes - Time Time Spent with patient: 15-24 minutes - Inpatient Certification Medical Necessity: Significant Comorbidiites Make Outpatient Treatment Too Risky, Need For IV Fluids, Need for IV Antibiotics, Need for Surgery, Risk of Complication if Not Cared For in Hospital - Plan Summary Plan Summary: Seen by medicine and cardiology patient is cleared for surgery but need to wait another 24 hours after [facility]. Last Eliquis intake was 24 hours ago. Plans: We will schedule patient for laparoscopic cholecystectomy tomorrow. Procedure has been explained to the patient and risks mentioned. She gives her consent.
[2019-11-19] MEDS ORDERED: ALBUTEROL SULFATE HFA (90 MCG/PUFF) 200 PUFF/8.5 GM MDI IH PRN (15:13)
--- NOTE | 2019-11-19 15:41 | PDOC PROGRESS REPORT ---
Subjective Progress Note for:: 11/19/19 Subjective:: PRISCA ABREU I is a 64 year old female with a past medical history of morbid obesity, obstructive sleep apnea, COPD, chronic bronchitis, tobacco dependence and atrial fibrillation on Eliquis who was admitted to the surgical service for acute cholecystitis. Hospital service was consulted for COPD exacerbation. Patient was seen on morning rounds. She was found resting in bed, comfortably, on room air. She reports that her breathing is much improved today. She has slight shortness of breath and a nonproductive cough. Overall, she is feeling much better and is hopeful to be cleared for surgery soon. She denies fever, chills, chest pain, palpitations, orthopnea, dyspnea at rest, abdominal pain, nausea vomiting and diarrhea. She has no new questions or concerns. No concerns per nursing. Reason For Visit: SYMPTOMATIC CHOLELITHIASIS WITH CHOLECYSTITIS Physical Exam Vital Signs: Temp Pulse Resp BP Pulse Ox 97.8 F 63 26 H 105/47 L 99 11/19/19 12:17 11/19/19 14:48 11/19/19 15:12 11/19/19 12:17 11/19/19 15:12 Intake & Output 11/18/19 11/19/19 11/20/19 06:59 06:59 06:59 Intake Total 2950 619 Balance 2950 619 Weight 114.3 kg General appearance: PRESENT: no acute distress, cooperative, morbidly obese, well-developed, well-nourished Head exam: PRESENT: atraumatic, normocephalic Eye exam: PRESENT: conjunctiva pink, EOMI, PERRLA. ABSENT: scleral icterus Ear exam: PRESENT: normal external ear exam Mouth exam: PRESENT: moist, tongue midline Neck exam: ABSENT: carotid bruit, JVD, lymphadenopathy, thyromegaly Respiratory exam: PRESENT: prolonged expiratory phas, rhonchi, symmetrical, unlabored. ABSENT: rales, wheezes Cardiovascular exam: PRESENT: RRR, +S1, +S2. ABSENT: diastolic murmur, rubs, systolic murmur Pulses: PRESENT: normal dorsalis pedis pul Vascular exam: PRESENT: normal capillary refill GI/Abdominal exam: PRESENT: normal bowel sounds, soft. ABSENT: distended, guarding, mass, organolmegaly, rebound, tenderness Rectal exam: PRESENT: deferred Extremities exam: PRESENT: full ROM. ABSENT: calf tenderness, clubbing, pedal edema Neurological exam: PRESENT: alert, awake, oriented to person, oriented to place, oriented to time, oriented to situation, CN II-XII grossly intact. ABSENT: motor sensory deficit Psychiatric exam: PRESENT: appropriate affect, normal mood. ABSENT: homicidal ideation, suicidal ideation Skin exam: PRESENT: dry, intact, warm. ABSENT: cyanosis, rash Results Laboratory Results: 11/18/19 15:15 11/18/19 15:15 11/18/19 11/18/19 11/18/19 15:15 15:15 15:55 WBC 12.2 H RBC 4.46 Hgb 13.7 Hct 41.5 MCV 93 MCH 30.7 MCHC 32.9 RDW 14.0 Plt Count 251 Seg Neutrophils % 75.6 Sodium 138.6 Potassium 4.5 Chloride 103 Carbon Dioxide 29 Anion Gap 7 BUN 10 Creatinine 0.83 Est GFR ( Amer) > 60 Glucose 109 Calcium 9.2 Total Bilirubin 0.5 AST 34 Alkaline Phosphatase 145 H Total Protein 7.1 Albumin 3.8 Lipase 91.4 Urine Color YELLOW Urine Appearance CLEAR Urine pH 7.0 Ur Specific [place] 1.009 Urine Protein NEGATIVE Urine Glucose (UA) NEGATIVE Urine Ketones NEGATIVE Urine Blood NEGATIVE Urine Nitrite NEGATIVE Ur Leukocyte Esterase NEGATIVE Urine WBC (Auto) 0 Urine RBC (Auto) 0 11/18/19 15:15 Troponin I < 0.012 Impressions: Abdomen Ultrasound 11/18/19 15:07 IMPRESSION: 1. Examination is limited by body habitus and bowel gas. No discrete gallstones identified. There may be a small volume of sludge in the gallbladder. No gallbladder wall thickening. No pericholecystic fluid. No biliary ductal dilation. 2. Sonographic Hickey sign is not documented. By siding coreboard inspector report, patient complains of midline abdominal pain radiating to back. 3. Hepatic steatosis. Assessment and Plan - Diagnosis (1) Acute bronchitis Is this a current diagnosis for this admission?: Yes Plan: Improved Continue empiric antibiotics as prescribed by surgery; Zon day #2. Continue supplemental oxygen as needed maintain saturations greater than 89%. Scheduled and as needed nebulizer treatments. Aggressive pulmonary toilet with incentive spirometry and flutter valve. (2) COPD (chronic obstructive pulmonary disease) Is this a current diagnosis for this admission?: Yes Plan: Improved. Secondary to #1. Anticipate optimize pulmonary status within 24 hours (3) Obstructive sleep apnea Is this a current diagnosis for this admission?: Yes Plan: BiPAP while asleep, avoid cervical flexion Patient reports that she does not have a CPAP or BiPAP machine at home. Recommend outpatient follow-up for formal sleep study. (4) Smoker Is this a current diagnosis for this admission?: Yes Plan: Tobacco cessation counseling, declines nicotine replacement options - Time Time Spent with patient: 15-24 minutes Medications reviewed and adjusted accordingly: Yes Anticipated discharge: Home
[2019-11-19] MEDS: FLECAINIDE ACETATE 100 MG TABLET PO SCH (18:26)
--- NOTE | 2019-11-19 18:39 | XCELERA REPORT ---
[address] [address] Transthoracic Echocardiogram Report Name: PRISCA ABREU I Age: 64 yrs Gender: Female : 1955 Patient Status: Inpatient Patient Location: [address] [place] [address] Study Date: 11/19/2019 01:56 PM History: Pre-opevaluation Atrial fibrillation Height: 64 in Weight: 258 lb BSA: 2.2 m2 Procedure: A complete two-dimensional transthoracic echocardiogram was performed (2D, M-mode, spectral and color flow Doppler). The study was technically difficult with many images being suboptimal in quality. Reason For Study: CHF, Atrial fibrillation, Pre-op, Edema Previous Evaluation: No previous studies were available. History: Other: Atrial fibrillation. HTN. Diabetes. Dyslipidemia. Ordering Physician: KENDY CUNNINGHAM Performed By: Vanessa Falk Interpretation Summary The study was technically difficult with many images being suboptimal in quality. Left ventricular systolic function is normal. The Ejection Fraction estimate is 55-60% The right ventricle is normal in size and function. There is a trace amount of mitral regurgitation There is no aortic valve stenosis There is a trace amount of tricuspid regurgitation There is no pericardial effusion. MMode/2D Measurements & Calculations RVDd: 2.4 cm LVIDd: 4.7 cm FS: 37.1 % Ao root diam: 2.8 cm IVSd: 1.0 cm LVIDs: 3.0 cm EDV(Teich): 102.5 ml Ao root area: 6.1 cm2 LVPWd: 1.0 cm ESV(Teich): 33.8 ml LA dimension: 3.2 cm EF(Teich): 67.0 % Doppler Measurements & Calculations MV E max brian: MV P1/2t max brian: Ao V2 max: LV V1 max P.1 cm/sec 109.6 cm/sec 134.2 cm/sec 4.9 mmHg MV A max brian: MV P1/2t: 79.5 msec Ao max PG: LV V1 max: 117.5 cm/sec MVA(P1/2t): 2.8 cm2 7.2 mmHg 110.6 cm/sec MV E/A: 0.93 MV dec slope: 403.9 cm/sec2 MV dec time: 0.27 sec PA V2 max: MV P1/2t-pr_phl: 91.8 cm/sec 79.5 msec PA max P.4 mmHg Left Ventricle The left ventricle is normal in size. There is mild concentric left ventricular hypertrophy. Left ventricular systolic function is normal. The Ejection Fraction estimate is 55-60%. Doppler measurements suggest impaired left ventricular relaxation, which is associated with grade I/IV or mild diastolic dysfunction. No regional wall motion abnormalities noted. Right Ventricle The right ventricle is normal in size and function. Atria The right atrium is normal in size. The left atrium is borderline dilated. Mitral Valve The mitral valve is grossly normal. There is no mitral valve stenosis. There is a trace amount of mitral regurgitation. Aortic Valve The aortic valve is not well visualized secondary to technical limitations. The aortic valve opens well. There is no aortic valve stenosis. No aortic regurgitation is present. Tricuspid Valve The tricuspid valve is not well visualized, but is grossly normal. There is a trace amount of tricuspid regurgitation. Pulmonic Valve The pulmonic valve is not well visualized. Great Vessels The aortic root is normal size. The inferior vena cava appeared dilated and decreased < 50% with respiration (RAP 15-20 mmHg). Effusions There is no pericardial effusion. : KENDY CUNNINGHAM Anil
--- NOTE | 2019-11-19 21:01 | PDOC PROGRESS REPORT ---
Subjective Progress Note for:: 11/19/19 Subjective:: Patient seen and examined. Resting in bed. by bedside. She complains of right upper quadrant as well as left upper quadrant pain. Has been n.p.o. except for clear liquids. Reason For Visit: SYMPTOMATIC CHOLELITHIASIS WITH CHOLECYSTITIS Physical Exam Vital Signs: Temp Pulse Resp BP Pulse Ox 97.5 F 68 15 116/50 L 96 11/19/19 16:46 11/19/19 20:15 11/19/19 20:15 11/19/19 16:46 11/19/19 20:15 Intake & Output 11/18/19 11/19/19 11/20/19 06:59 06:59 06:59 Intake Total 2950 1539 Balance 2950 1539 Weight 114.3 kg General appearance: PRESENT: obese Head exam: PRESENT: atraumatic, normocephalic Eye exam: PRESENT: EOMI Mouth exam: PRESENT: moist Respiratory exam: PRESENT: clear to auscultation anat, symmetrical Cardiovascular exam: PRESENT: RRR, +S1, +S2 Pulses: PRESENT: normal radial pulses GI/Abdominal exam: PRESENT: soft Rectal exam: PRESENT: deferred Musculoskeletal exam: PRESENT: normal inspection Neurological exam: PRESENT: awake, oriented to person, oriented to place, oriented to time, oriented to situation, CN II-XII grossly intact Psychiatric exam: PRESENT: appropriate affect Skin exam: PRESENT: dry, intact, normal color Results Laboratory Results: 11/18/19 15:15 11/18/19 15:15 11/18/19 15:15 Troponin I < 0.012 Impressions: Abdomen Ultrasound 11/18/19 15:07 IMPRESSION: 1. Examination is limited by body habitus and bowel gas. No discrete gallstones identified. There may be a small volume of sludge in the gallbladder. No gallbladder wall thickening. No pericholecystic fluid. No biliary ductal dilation. 2. Sonographic Hickey sign is not documented. By shoe planner report, patient complains of midline abdominal pain radiating to back. 3. Hepatic steatosis. Assessment & Plan - Diagnosis (1) Preop cardiovascular exam Is this a current diagnosis for this admission?: Yes Plan: It should be an acceptable risk for planned surgery without further risk stratification Transthoracic echocardiogram performed shows preserved left ventricular systolic function and no significant valvular lesion. Would recommend proceeding with usual precautions. Systemic anticoagulation has been interrupted for planned surgery. Apixaban should be resumed as soon as feasible after surgery. (2) Atrial fibrillation Is this a current diagnosis for this admission?: Yes Plan: Continue to maintain sinus rhythm. Patient is managed with rhythm control strategy consisting of flecainide together with metoprolol. Recommend not holding beta-letty for heart rate in the 50s especially when patient is asymptomatic. (3) Smoker Is this a current diagnosis for this admission?: Yes Plan: Discourage smoking. - Notes Notes: Acceptable risk for surgery without further re-stratification or studies. Would recommend resuming systemic anticoagulation with apixaban as soon as feasible.
[2019-11-19] MEDS: CHOLECALCIFEROL (D3) 1,000 UNIT (25 MCG) TABLET PO SCH (21:07)
[2019-11-19] MEDS: ATORVASTATIN CALCIUM 40 MG TABLET PO SCH (21:08)
[2019-11-19] MEDS: ESCITALOPRAM OXALATE 10 MG TABLET PO SCH (21:08)
[2019-11-19] MEDS ORDERED: ESCITALOPRAM OXALATE 10 MG TABLET PO SCH (22:00)
[2019-11-19] MEDS ORDERED: ATORVASTATIN CALCIUM 40 MG TABLET PO SCH (22:00)
[2019-11-19] MEDS ORDERED: DEXTROSE 50%-WATER 25 GM/50 ML DISP.SYRIN IV PRN ×2 (23:54)
[2019-11-19] MEDS ORDERED: DEXTROSE 40% GEL 15 GM TUBE PO PRN ×2 (23:54)
[2019-11-19] MEDS ORDERED: GLUCAGON,HUMAN RECOMB 1 MG INJ SUBCUT PRN (23:54)
[2019-11-20] MEDS: RINGERS SOLUTION,LACTATED 1,000 ML IV PRN ×2 (00:30→12:01)
[2019-11-20] MEDS: AMPICILLIN SODIUM/SULBACTAM NA 3 GM in NORMAL SALINE 100 ML IV SCH ×3 (01:16→17:51)
[2019-11-20] MEDS: LEVALBUTEROL HCL NEB 1.25 MG/3 ML AMPUL NEB SCH ×4 (01:54→20:28)
[2019-11-20] MEDS: IPRATROPIUM BROMIDE 0.02% NEB 0.5 MG/2.5 ML AMPUL NEB SCH ×4 (01:55→20:28)
[2019-11-20] MEDS: ACETAMINOPHEN 1,000 MG/100 ML RTUPB IV SCH ×4 (02:29→21:21)
[2019-11-20] MEDS: PANTOPRAZOLE SODIUM 20 MG TABLET.DR PO SCH (05:17)
[2019-11-20] MEDS ORDERED: FUROSEMIDE 20 MG TABLET PO SCH (10:00)
[2019-11-20] MEDS ORDERED: AMLODIPINE BESYLATE 10 MG TABLET PO SCH (10:00)
[2019-11-20] MEDS: FLECAINIDE ACETATE 100 MG TABLET PO SCH ×2 (10:41→17:51)
[2019-11-20] MEDS: FLUTICASONE NASAL SPRAY 50 MCG/SPRY 120 SPRAY/16 GM NASL SCH ×2 (10:41→21:19)
[2019-11-20] MEDS: FUROSEMIDE 20 MG TABLET PO SCH (10:43)
[2019-11-20] MEDS: METOPROLOL SUCCINATE 25 MG TAB.SR.24H PO SCH (10:44)
[2019-11-20] MEDS: AMLODIPINE BESYLATE 10 MG TABLET PO SCH (10:44)
--- NOTE | 2019-11-20 15:17 | PDOC PROGRESS REPORT ---
Subjective Progress Note for:: 11/20/19 Subjective:: less pains Reason For Visit: SYMPTOMATIC CHOLELITHIASIS WITH CHOLECYSTITIS Physical Exam Vital Signs: Temp Pulse Resp BP Pulse Ox 97.5 F 85 22 H 118/48 L 93 11/20/19 10:48 11/20/19 14:08 11/20/19 14:08 11/20/19 10:48 11/20/19 14:08 Intake & Output 11/19/19 11/20/19 11/21/19 06:59 06:59 06:59 Intake Total 2950 2820 1200 Balance 2950 2820 1200 Weight 114.3 kg Exam: Abdomen is soft with minimal tenderness in the right upper quadrant Results Laboratory Results: 11/18/19 15:15 11/18/19 15:15 11/20/19 08:35 Blood Type A POSITIVE Antibody Screen NEGATIVE 11/18/19 15:15 Troponin I < 0.012 Impressions: Abdomen Ultrasound 11/18/19 15:07 IMPRESSION: 1. Examination is limited by body habitus and bowel gas. No discrete gallstones identified. There may be a small volume of sludge in the gallbladder. No gallbladder wall thickening. No pericholecystic fluid. No biliary ductal dilation. 2. Sonographic Hickey sign is not documented. By sugar plantation manager report, patient complains of midline abdominal pain radiating to back. 3. Hepatic steatosis. Assessment & Plan - Diagnosis (1) Cholecystitis Is this a current diagnosis for this admission?: Yes (2) Obstructive sleep apnea Is this a current diagnosis for this admission?: Yes (3) Smoker Is this a current diagnosis for this admission?: Yes (4) Atrial fibrillation Is this a current diagnosis for this admission?: Yes - Time Time Spent with patient: 15-24 minutes - Inpatient Certification Medical Necessity: Need For IV Fluids, Need for IV Antibiotics, Need for Surgery - Plan Summary Plan Summary: Second day being off Eliquis. Still with mild right upper quadrant pains. Unable to get into the OR schedule today. Will schedule tomorrow at [address] Rivera.
--- NOTE | 2019-11-20 15:38 | PDOC PROGRESS REPORT ---
Subjective Progress Note for:: 11/20/19 Reason For Visit: SYMPTOMATIC CHOLELITHIASIS WITH CHOLECYSTITIS 11/20/2019 Patient admitted for right upper quadrant abdominal pain secondary to cholelithiasis. She has a history of COPD Physical Exam Vital Signs: Temp Pulse Resp BP Pulse Ox 97.5 F 85 22 H 118/48 L 93 11/20/19 10:48 11/20/19 14:08 11/20/19 14:08 11/20/19 10:48 11/20/19 14:08 Intake & Output 11/19/19 11/20/19 11/21/19 06:59 06:59 06:59 Intake Total 2950 2820 1200 Balance 2950 2820 1200 Weight 114.3 kg General appearance: PRESENT: no acute distress Respiratory exam: PRESENT: clear to auscultation anat. ABSENT: rales, rhonchi, wheezes Cardiovascular exam: PRESENT: RRR. ABSENT: diastolic murmur, rubs, systolic murmur GI/Abdominal exam: PRESENT: tenderness - Right upper quadrant abdominal pain, mild Neurological exam: PRESENT: alert, awake, oriented to person, oriented to place, oriented to time, oriented to situation, CN II-XII grossly intact. ABSENT: motor sensory deficit Psychiatric exam: PRESENT: appropriate affect, normal mood. ABSENT: homicidal ideation, suicidal ideation Results Laboratory Results: 11/18/19 15:15 11/18/19 15:15 11/20/19 08:35 Blood Type A POSITIVE Antibody Screen NEGATIVE 11/18/19 15:15 Troponin I < 0.012 Impressions: Abdomen Ultrasound 11/18/19 15:07 IMPRESSION: 1. Examination is limited by body habitus and bowel gas. No discrete gallstones identified. There may be a small volume of sludge in the gallbladder. No gallbladder wall thickening. No pericholecystic fluid. No biliary ductal dilation. 2. Sonographic Hickey sign is not documented. By eligibility manager report, patient complains of midline abdominal pain radiating to back. 3. Hepatic steatosis. Assessment and Plan - Diagnosis (1) Acute bronchitis Is this a current diagnosis for this admission?: Yes (2) COPD (chronic obstructive pulmonary disease) Is this a current diagnosis for this admission?: Yes (3) Cholecystitis Is this a current diagnosis for this admission?: Yes (4) Obesity Qualifiers: Body mass index: BMI 40.0-44.9 Is this a current diagnosis for this admission?: Yes (5) Obstructive sleep apnea Is this a current diagnosis for this admission?: Yes - Plan Summary Summary: 11/20/2019 Patient was not able to get on the surgical schedule today therefore her cholecystectomy is scheduled for tomorrow Temperature 98.4 pulse 75 blood pressure 115/59, 100% saturation on either room air BiPAP Patient's Eliquis has been held for 2 days now. Patient is currently on Unasyn We will resume Eliquis following surgery when patient is stable. Continue IV antibiotics for both her bronchitis as well as her gallbladder Patient appears medically stable, get 2 view chest x-ray today however for basel ine as well as preop - Time Time Spent with patient: 25-34 minutes
--- NOTE | 2019-11-20 18:02 | PDOC PROGRESS REPORT ---
Subjective Progress Note for:: 11/20/19 Subjective:: Patient seen and examined. Resting in bed. abdominal pain stable. Reason For Visit: SYMPTOMATIC CHOLELITHIASIS WITH CHOLECYSTITIS Physical Exam Vital Signs: Temp Pulse Resp BP Pulse Ox 97.7 F 66 16 119/53 L 97 11/20/19 14:38 11/20/19 14:38 11/20/19 14:38 11/20/19 14:38 11/20/19 14:38 Intake & Output 11/19/19 11/20/19 11/21/19 06:59 06:59 06:59 Intake Total 2950 2820 1300 Balance 2950 2820 1300 Weight 114.3 kg General appearance: PRESENT: no acute distress, cooperative, morbidly obese Head exam: PRESENT: atraumatic, normocephalic Eye exam: PRESENT: conjunctiva pink, EOMI Respiratory exam: PRESENT: clear to auscultation anat, symmetrical, unlabored Cardiovascular exam: PRESENT: RRR, +S1, +S2 Pulses: PRESENT: normal radial pulses GI/Abdominal exam: PRESENT: soft Rectal exam: PRESENT: deferred Musculoskeletal exam: PRESENT: normal inspection Neurological exam: PRESENT: alert, oriented to person, oriented to place, oriented to time, oriented to situation Psychiatric exam: PRESENT: appropriate affect Skin exam: PRESENT: dry, intact, normal color Results Laboratory Results: 11/18/19 15:15 11/18/19 15:15 11/20/19 08:35 Blood Type A POSITIVE Antibody Screen NEGATIVE 11/18/19 15:15 Troponin I < 0.012 Impressions: Abdomen Ultrasound 11/18/19 15:07 IMPRESSION: 1. Examination is limited by body habitus and bowel gas. No discrete gallstones identified. There may be a small volume of sludge in the gallbladder. No gallbladder wall thickening. No pericholecystic fluid. No biliary ductal dilation. 2. Sonographic Hickey sign is not documented. By engineering systems analyst report, patient complains of midline abdominal pain radiating to back. 3. Hepatic steatosis. Assessment & Plan - Diagnosis (1) Preop cardiovascular exam Is this a current diagnosis for this admission?: Yes Plan: It should be an acceptable risk for planned surgery without further risk stratification Transthoracic echocardiogram performed shows preserved left ventricular systolic function and no significant valvular lesion. Would recommend proceeding with usual precautions. Systemic anticoagulation has been interrupted for planned surgery. Apixaban should be resumed as soon as feasible after surgery. (2) Atrial fibrillation Is this a current diagnosis for this admission?: Yes Plan: Continue to maintain sinus rhythm. Patient is managed with rhythm control strategy consisting of flecainide together with metoprolol. Recommend not holding beta-letty for heart rate in the 50s especially when patient is asymptomatic. (3) Smoker Is this a current diagnosis for this admission?: Yes Plan: Discourage smoking.
--- NOTE | 2019-11-20 18:17 | RADIOLOGY REPORT (SQ) ---
EXAM DESCRIPTION: CHEST 2 VIEWS COMPLETED DATE/TIME: 11/20/2019 5:09 pm REASON FOR STUDY: COPD with bronchitis COMPARISON: CT chest 06/19/2019 Two-view chest 06/19/2019 EXAM PARAMETERS: NUMBER OF VIEWS: two views TECHNIQUE: Digital Frontal and Lateral radiographic views of the chest acquired. RADIATION DOSE: NA LIMITATIONS: none FINDINGS: LUNGS AND PLEURA: No opacities, masses or pneumothorax. No pleural effusion. MEDIASTINUM AND HILAR STRUCTURES: No masses or contour abnormalities. HEART AND VASCULAR STRUCTURES: Heart normal size. No evidence for failure. BONES: No acute findings. HARDWARE: None in the chest. OTHER: No other significant finding. IMPRESSION: NO ACUTE RADIOGRAPHIC FINDING IN THE CHEST. TECHNICAL DOCUMENTATION: JOB ID: [id number] [employer]- All Rights Reserved Reading location - IP/workstation name: [email or web address]
[2019-11-20] MEDS ORDERED: MAG HYDROX/AL HYDROX/SIMETH SUSP 30 ML UDCUP ONE (20:15)
[2019-11-20] MEDS: MAG HYDROX/AL HYDROX/SIMETH SUSP 30 ML UDCUP PO PRN (20:15)
[2019-11-20] MEDS: CHOLECALCIFEROL (D3) 1,000 UNIT (25 MCG) TABLET PO SCH (21:20)
[2019-11-20] MEDS: ATORVASTATIN CALCIUM 40 MG TABLET PO SCH (21:20)
[2019-11-20] MEDS: ESCITALOPRAM OXALATE 10 MG TABLET PO SCH (21:20)
[2019-11-21] MEDS: RINGERS SOLUTION,LACTATED 1,000 ML IV PRN ×3 (00:02→17:02)
[2019-11-21] MEDS: AMPICILLIN SODIUM/SULBACTAM NA 3 GM in NORMAL SALINE 100 ML IV SCH ×3 (01:49→17:02)
[2019-11-21] MEDS: IPRATROPIUM BROMIDE 0.02% NEB 0.5 MG/2.5 ML AMPUL NEB SCH ×4 (02:27→19:34)
[2019-11-21] MEDS: LEVALBUTEROL HCL NEB 1.25 MG/3 ML AMPUL NEB SCH ×4 (02:27→19:33)
[2019-11-21] MEDS: ACETAMINOPHEN 1,000 MG/100 ML RTUPB IV SCH ×2 (03:04→08:34)
[2019-11-21] MEDS: PANTOPRAZOLE SODIUM 20 MG TABLET.DR PO SCH (05:11)
[2019-11-21] MEDS ORDERED: DEXAMETHASONE SOD PHOSPHATE INJ 4 MG/1 ML VIAL ONE (08:19)
[2019-11-21] MEDS ORDERED: SUCCINYLCHOLINE CHLORIDE INJ 200 MG/10 ML VIAL ONE (08:19)
[2019-11-21] MEDS ORDERED: ONDANSETRON HCL INJ/PF 4 MG/2 ML SDV ONE ×2 (08:19→15:20)
[2019-11-21] MEDS ORDERED: NEOSTIGMINE METHYLSULFATE 10 MG/10 ML VIAL ONE (08:19)
[2019-11-21] MEDS ORDERED: GLYCOPYRROLATE 1 MG/5 ML VIAL ONE (08:19)
[2019-11-21] MEDS ORDERED: ROCURONIUM BROMIDE INJ 50 MG/5 ML VIAL IV ONE (08:19)
[2019-11-21] MEDS: FLUTICASONE NASAL SPRAY 50 MCG/SPRY 120 SPRAY/16 GM NASL SCH ×2 (11:13→22:32)
[2019-11-21] MEDS: AMLODIPINE BESYLATE 10 MG TABLET PO SCH (11:23)
[2019-11-21] MEDS: METOPROLOL SUCCINATE 25 MG TAB.SR.24H PO SCH (11:23)
[2019-11-21] MEDS ORDERED: FENTANYL CITRATE INJ/PF 250 MCG/5 ML AMPULE ONE (11:51)
[2019-11-21] MEDS ORDERED: MIDAZOLAM 2 MG/2 ML INJ ONE (11:51)
[2019-11-21] MEDS ORDERED: HYDROMORPHONE HCL INJ/PF 2 MG/ML AMPULE ONE (11:51)
[2019-11-21] MEDS ORDERED: PROPOFOL INJ 200 MG/20 ML VIAL IV ONE (11:52)
[2019-11-21] MEDS ORDERED: BUPIVACAINE HCL 0.25 % INJ/PF (2.5 MG/1 ML) 30 ML VIAL ONE (11:57)
--- NOTE | 2019-11-21 12:04 | PDOC PROGRESS REPORT ---
Subjective Progress Note for:: 11/21/19 Reason For Visit: SYMPTOMATIC CHOLELITHIASIS WITH CHOLECYSTITIS Physical Exam Vital Signs: Temp Pulse Resp BP Pulse Ox 97.9 F 68 17 132/60 H 91 L 11/21/19 08:11 11/21/19 08:11 11/21/19 08:11 11/21/19 08:11 11/21/19 08:11 Intake & Output 11/20/19 11/21/19 11/22/19 06:59 06:59 06:59 Intake Total 2820 2800 1100 Balance 2820 2800 1100 Weight 120.2 kg General appearance: PRESENT: no acute distress, obese Head exam: PRESENT: atraumatic, normocephalic Mouth exam: PRESENT: moist Neck exam: PRESENT: meningismus, tenderness Respiratory exam: PRESENT: clear to auscultation anat. ABSENT: chest wall tenderness Cardiovascular exam: PRESENT: RRR GI/Abdominal exam: PRESENT: tenderness - right upper quad. ABSENT: distended, firm Extremities exam: ABSENT: clubbing Musculoskeletal exam: ABSENT: deformity Neurological exam: PRESENT: alert, awake, oriented to person, oriented to place, oriented to time, oriented to situation, CN II-XII grossly intact Psychiatric exam: ABSENT: agitated, anxious, depressed Focused psych exam: ABSENT: delusional Skin exam: ABSENT: cyanosis, jaundice Results Laboratory Results: 11/18/19 15:15 11/18/19 15:15 11/18/19 15:15 Troponin I < 0.012 Impressions: Abdomen Ultrasound 11/18/19 15:07 IMPRESSION: 1. Examination is limited by body habitus and bowel gas. No discrete gallstones identified. There may be a small volume of sludge in the g allbladder. No gallbladder wall thickening. No pericholecystic fluid. No biliary ductal dilation. 2. Sonographic Hickey sign is not documented. By plant and machinery valuer report, patient complains of midline abdominal pain radiating to back. 3. Hepatic steatosis. Chest X-Ray 11/20/19 00:00 IMPRESSION: NO ACUTE RADIOGRAPHIC FINDING IN THE CHEST. Assessment & Plan - Diagnosis (1) Cholecystitis Is this a current diagnosis for this admission?: Yes - Time Time Spent with patient: Less than 15 minutes - Plan Summary Plan Summary: This is a 64-year-old female admitted with cholecystitis. Plan for surgery tobritney ferris. Laparoscopic cholecystectomy has been discussed with the patient and her at length. Risks/benefits discussed, informed consent obtained, and all questions answered.
--- NOTE | 2019-11-21 12:47 | PDOC PROGRESS REPORT ---
Subjective Progress Note for:: 11/21/19 Reason For Visit: SYMPTOMATIC CHOLELITHIASIS WITH CHOLECYSTITIS 11/21/2019 Originally consulted for COPD exacerbation with possible bronchitis. Patient admitted for abdominal pain secondary to cholelithiasis Physical Exam Vital Signs: Temp Pulse Resp BP Pulse Ox 97.9 F 70 16 136/66 H 95 11/21/19 11:30 11/21/19 11:30 11/21/19 11:30 11/21/19 11:30 11/21/19 11:30 Intake & Output 11/20/19 11/21/19 11/22/19 06:59 06:59 06:59 Intake Total 2820 2800 1100 Balance 2820 2800 1100 Weight 120.2 kg General appearance: PRESENT: no acute distress Respiratory exam: PRESENT: clear to auscultation anat. ABSENT: rales, rhonchi, wheezes Cardiovascular exam: PRESENT: RRR. ABSENT: diastolic murmur, rubs, systolic murmur GI/Abdominal exam: PRESENT: other - Deferred to general surgery Neurological exam: PRESENT: alert, awake, oriented to person, oriented to place, oriented to time, oriented to situation, CN II-XII grossly intact. ABSENT: motor sensory deficit Psychiatric exam: PRESENT: appropriate affect, normal mood. ABSENT: homicidal ideation, suicidal ideation Results Laboratory Results: 11/18/19 15:15 11/18/19 15:15 11/18/19 15:15 Troponin I < 0.012 Impressions: Abdomen Ultrasound 11/18/19 15:07 IMPRESSION: 1. Examination is limited by body habitus and bowel gas. No discrete gallstones identified. There may be a small volume of sludge in the gallbladder. No gallbladder wall thickening. No pericholecystic fluid. No biliary ductal dilation. 2. Sonographic Hickey sign is not documented. By insurance appraiser report, patient complains of midline abdominal pain radiating to back. 3. Hepatic steatosis. Chest X-Ray 11/20/19 00:00 IMPRESSION: NO ACUTE RADIOGRAPHIC FINDING IN THE CHEST. Assessment and Plan - Diagnosis (1) Acute bronchitis Is this a current diagnosis for this admission?: Yes (2) COPD (chronic obstructive pulmonary disease) Is this a current diagnosis for this admission?: Yes (3) Cholecystitis Is this a current diagnosis for this admission?: Yes (4) Obesity Qualifiers: Body mass index: BMI 40.0-44.9 Is this a current diagnosis for this admission?: Yes (5) Obstructive sleep apnea Is this a current diagnosis for this admission?: Yes - Plan Summary Summary: 11/20/2019 Patient was not able to get on the surgical schedule today therefore her cholecystectomy is scheduled for tomorrow Temperature 98.4 pulse 75 blood pressure 115/59, 100% saturation on either room air BiPAP Patient's Eliquis has been held for 2 days now. Patient is currently on Unasyn We will resume Eliquis following surgery when patient is stable. Continue IV antibiotics for both her bronchitis as well as her gallbladder Patient appears medically stable, get 2 view chest x-ray today however for baseline as well as preop 11/21/2019 Vital signs are stable with O2 sat between 91 and 100% on room air. Probably be higher patient was more ambulatory Chest x-ray from yesterday shows no acute cardiopulmonary disease. Patient is medically stable and we will sign off. If patient has any problems postop please reconsult us. - Time Time Spent with patient: 15-24 minutes
[2019-11-21] MEDS ORDERED: MEPERIDINE HCL/PF INJ 25 MG/1 ML DISP.SYRIN IV PRN (13:13)
[2019-11-21] MEDS ORDERED: OXYCODONE-ACETAMINOPHEN 5-325 MG TABLET PO PRN ×2 (13:13)
[2019-11-21] MEDS ORDERED: MORPHINE SULFATE 10 MG/ML INJ IV PRN ×2 (13:13→14:04)
[2019-11-21] MEDS ORDERED: ONDANSETRON HCL INJ/PF 4 MG/2 ML SDV IV PRN (13:13)
[2019-11-21] MEDS ORDERED: DIPHENHYDRAMINE HCL 50 MG/ML VIAL IV PRN (13:13)
[2019-11-21] MEDS ORDERED: PROMETHAZINE HCL INJ 25 MG/1 ML VIAL IV PRN ×2 (13:13)
[2019-11-21] MEDS ORDERED: FENTANYL CITRATE INJ/PF 100 MCG/2 ML AMPUL IV PRN ×3 (13:13)
--- NOTE | 2019-11-21 13:13 | PDOC PROGRESS REPORT ---
Subjective Progress Note for:: 11/21/19 Subjective:: Patient seen and examined. Resting in bed. abdominal pain stable. N.p.o. for surgery today Reason For Visit: SYMPTOMATIC CHOLELITHIASIS WITH CHOLECYSTITIS Physical Exam Vital Signs: Temp Pulse Resp BP Pulse Ox 97.9 F 70 16 136/66 H 95 11/21/19 11:30 11/21/19 11:30 11/21/19 11:30 11/21/19 11:30 11/21/19 11:30 Intake & Output 11/20/19 11/21/19 11/22/19 06:59 06:59 06:59 Intake Total 2820 2800 1100 Balance 2820 2800 1100 Weight 120.2 kg General appearance: PRESENT: no acute distress, cooperative, obese Head exam: PRESENT: atraumatic, normocephalic Eye exam: PRESENT: conjunctiva pink, EOMI Respiratory exam: PRESENT: clear to auscultation anat, symmetrical, unlabored Cardiovascular exam: PRESENT: RRR, +S1, +S2 Pulses: PRESENT: normal radial pulses GI/Abdominal exam: PRESENT: soft Rectal exam: PRESENT: deferred Neurological exam: PRESENT: alert, awake, oriented to person, oriented to place, oriented to time, oriented to situation Psychiatric exam: PRESENT: appropriate affect Skin exam: PRESENT: dry, intact, normal color Results Laboratory Results: 11/18/19 15:15 11/18/19 15:15 11/18/19 15:15 Troponin I < 0.012 Impressions: Abdomen Ultrasound 11/18/19 15:07 IMPRESSION: 1. Examination is limited by body habitus and bowel gas. No discrete gallstones identified. There may be a small volume of sludge in the gallbladder. No gallbladder wall thickening. No pericholecystic fluid. No biliary ductal dilation. 2. Sonographic Hickey sign is not documented. By clinical nursing instructor report, patient complains of midline abdominal pain radiating to back. 3. Hepatic steatosis. Chest X-Ray 11/20/19 00:00 IMPRESSION: NO ACUTE RADIOGRAPHIC FINDING IN THE CHEST. Assessment & Plan - Diagnosis (1) Preop cardiovascular exam Is this a current diagnosis for this admission?: Yes Plan: It should be an acceptable risk for planned surgery without further risk stratification Transthoracic echocardiogram performed shows preserved left ventricular systolic function and no significant valvular lesion. Would recommend proceeding with usual precautions. Systemic anticoagulation has been interrupted for planned surgery. Apixaban should be resumed as soon as feasible after surgery. (2) Atrial fibrillation Is this a current diagnosis for this admission?: Yes Plan: Continue to maintain sinus rhythm. Patient is managed with rhythm control strategy consisting of flecainide together with metoprolol. Recommend not holding beta-letty for heart rate in the 50s especially when patient is asymptomatic. (3) Smoker Is this a current diagnosis for this admission?: Yes
--- NOTE | 2019-11-21 14:14 | Operative Report ---
Nonrecallable Operative Report DATE OF SURGERY: 11/21/19 PREOPERATIVE DIAGNOSIS: Cholecystitis POSTOPERATIVE DIAGNOSIS: Acute on chronic cholecystitis OPERATION: Laparoscopic cholecystectomy SURGEON: SANTO KAISER ANESTHESIA: GA TISSUE REMOVED OR ALTERED: Gallbladder COMPLICATIONS: None apparent ESTIMATED BLOOD LOSS: 30 cc PROCEDURE: Drains/implants: 15 Burmese round Trung drain in the gallbladder fossa. Procedure in detail: After informed consent was obtained, the patient was brought to the operating room and laid in the supine position. The area of the abdomen was prepped and draped in a normal sterile fashion. An incision was created in the supraumbilical position. Dissection was carried through the s ubcutaneous tissue using sharp and blunt dissection. The linea alba fascia was incised sharply, the abdomen was entered sharply. The balloon trocar was inserted, and pneumoperitoneum was achieved. A subxiphoid 5 mm port was then placed under direct laparoscopic visualization. 2 more 5 mm ports were placed in the right upper quadrant in similar fashion. Atraumatic graspers were placed through the 5 mm ports. The gallbladder was identified. There were multiple adhesions to the gallbladder. Omentum was dissected away from the gallbladder using sharp and blunt dissection. The gallbladder was then retracted cephalad and laterally. Dissection was begun at the infundibulum. The triangle of Calot was identified. The cystic duct and cystic artery were identified and dissected. The cystic artery was skeletonized. there was a dense inflammatory reaction around the infundibulum of the gallbladder. Secondary to the dense inflammatory reaction, was felt to be risky to further dissect into the triangle. Secondary to this, the cystic artery was ligated and divided high on the gallbladder. Next, the gallbladder was freed from the liver using blunt dissection and electrocautery. Once the gallbladder was completely free of the liver, a PDS Endoloop was secured around the cystic duct/infundibulum junction. Next, the gallbladder was amputated, placed into an Endo Catch bag, and pulled out through the umbilicus. The camera was reinserted. The abdomen was copiously irrigated and suctioned until the effluent was clear. The hilum was inspected. It was found to be free of any leakage of blood or bile. Next, a 15 Burmese round Trung drain was placed through the lateralmost port site. It was situated into the gallbladder fossa. This was done due to the large amount of inflammation found around the gallbladder. This drain was sutured to the skin using 2-0 nylon. The 5 mm trochars were then removed under direct laparoscopic visualization. The supraumbilical trocar was removed, and pneumoperitoneum was relieved. The supraumbilical fascia was closed using 0 Vicryl suture in [id number] fashion. The overlying skin was closed using 4-0 Vicryl Rapide suture in s ubcuticular fashion. A dressing was placed, and the procedure was concluded. All sponge, instrument, and needle counts were correct x2. Condition: Stable.
[2019-11-21] MEDS ORDERED: PROMETHAZINE HCL INJ 25 MG/1 ML VIAL ONE (14:20)
[2019-11-21] MEDS ORDERED: FENTANYL CITRATE INJ/PF 100 MCG/2 ML AMPUL ONE (14:20)
[2019-11-21] MEDS: FLECAINIDE ACETATE 100 MG TABLET PO SCH ×2 (16:57→18:31)
[2019-11-21] MEDS: FUROSEMIDE 20 MG TABLET PO SCH (18:32)
[2019-11-21] MEDS: HYDROCODONE/ACETAMINOPHEN 10-325 MG TABLET PO PRN ×2 (18:37→23:53)
[2019-11-21] MEDS: KETOROLAC TROMETHAMINE INJ/PF 30 MG/1 ML SDV IV SCH (22:01)
[2019-11-21] MEDS: ESCITALOPRAM OXALATE 10 MG TABLET PO SCH (22:02)
[2019-11-21] MEDS: ATORVASTATIN CALCIUM 40 MG TABLET PO SCH (22:02)
[2019-11-21] MEDS: CHOLECALCIFEROL (D3) 1,000 UNIT (25 MCG) TABLET PO SCH (22:02)
[2019-11-22] MEDS: AMPICILLIN SODIUM/SULBACTAM NA 3 GM in NORMAL SALINE 100 ML IV SCH ×2 (01:10→09:45)
[2019-11-22] MEDS: IPRATROPIUM BROMIDE 0.02% NEB 0.5 MG/2.5 ML AMPUL NEB SCH ×2 (01:54→07:34)
[2019-11-22] MEDS: LEVALBUTEROL HCL NEB 1.25 MG/3 ML AMPUL NEB SCH ×2 (01:54→07:34)
[2019-11-22] MEDS: RINGERS SOLUTION,LACTATED 1,000 ML IV PRN (04:17)
[2019-11-22] MEDS: PANTOPRAZOLE SODIUM 20 MG TABLET.DR PO SCH (05:05)
[2019-11-22] MEDS: KETOROLAC TROMETHAMINE INJ/PF 30 MG/1 ML SDV IV SCH (05:05)
[2019-11-22 08:06] LABS: ALBUMIN 3.4 g/dL (3.5-5.0); ALKALINE PHOSPHATASE 107 U/L (38-126); ANION GAP 7 (5-19); ASPARTATE AMINO TRANSFERASE 50 U/L (14-36); BILIRUBIN,DIRECT 0.2 mg/dL (0.0-0.4); BILIRUBIN,TOTAL 0.3 mg/dL (0.2-1.3); BLOOD UREA NITROGEN 7 mg/dL (7-20); CALCIUM 9.1 mg/dL (8.4-10.2); CARBON DIOXIDE 31 mmol/L (22-30); CHLORIDE 101 mmol/L (98-107); GLUCOSE 123 mg/dL (75-110); POTASSIUM 4.4 mmol/L (3.6-5.0); TOTAL PROTEIN 6.4 g/dL (6.3-8.2)
[2019-11-22] MEDS: FUROSEMIDE 20 MG TABLET PO SCH (09:49)
[2019-11-22] MEDS: AMLODIPINE BESYLATE 10 MG TABLET PO SCH (09:49)
[2019-11-22] MEDS: METOPROLOL SUCCINATE 25 MG TAB.SR.24H PO SCH (09:50)
[2019-11-22] MEDS: FLECAINIDE ACETATE 100 MG TABLET PO SCH (09:50)
[2019-11-22] MEDS: MAG HYDROX/AL HYDROX/SIMETH SUSP 30 ML UDCUP PO PRN (09:52)
[2019-11-22] MEDS: FLUTICASONE NASAL SPRAY 50 MCG/SPRY 120 SPRAY/16 GM NASL SCH (09:54)
--- NOTE | 2019-11-22 10:50 | PDOC PROGRESS REPORT ---
Subjective Progress Note for:: 11/22/19 Subjective:: The hospital service had signed off of the case yesterday as the patient was medically stable. I was asked to revisit with the patient regarding resumption of medications and possible treatment for thrush. The patient states that her tongue is not very sore right now but every time she is on antibiotics she does in fact get thrush. Reason For Visit: SYMPTOMATIC CHOLELITHIASIS WITH CHOLECYSTITIS Physical Exam Vital Signs: Temp Pulse Resp BP Pulse Ox 97.7 F 57 L 20 133/65 H 100 11/22/19 07:42 11/22/19 07:42 11/22/19 07:42 11/22/19 07:42 11/22/19 07:42 Intake & Output 11/21/19 11/22/19 11/23/19 06:59 06:59 06:59 Intake Total 2800 7403 Output Total 2330 Balance 2800 5073 Weight 120.2 kg 122.1 kg General appearance: PRESENT: no acute distress, cooperative, morbidly obese Head exam: PRESENT: atraumatic, normocephalic Ear exam: PRESENT: normal external ear exam. ABSENT: bleeding, drainage Mouth exam: PRESENT: moist, tongue midline, other - The tongue has a greenish coating. This could be early thrush. There are no obvious white plaques. Respiratory exam: PRESENT: clear to auscultation anat, symmetrical, unlabored. ABSENT: rales, rhonchi, tachypnea, wheezes Cardiovascular exam: PRESENT: RRR, +S1, +S2 GI/Abdominal exam: PRESENT: normal bowel sounds, soft, other - Protuberant abdomen. IGNACIO drain in place right side of the abdomen. Serosanguineous fluid is present. Rectal exam: PRESENT: deferred Gentrourinary exam: ABSENT: indwelling catheter Neurological exam: PRESENT: alert, awake, oriented to person, oriented to place, oriented to time, oriented to situation, CN II-XII grossly intact Psychiatric exam: PRESENT: appropriate affect. ABSENT: agitated, anxious Results Laboratory Results: 11/18/19 15:15 11/22/19 07:23 11/22/19 07:23 Sodium 138.8 Potassium 4.4 Chloride 101 Carbon Dioxide 31 H Anion Gap 7 BUN 7 Creatinine 0.90 Est GFR ( Amer) > 60 Glucose 123 H Calcium 9.1 Total Bilirubin 0.3 AST 50 H Alkaline Phosphatase 107 Total Protein 6.4 Albumin 3.4 L 11/18/19 15:15 Troponin I < 0.012 Impressions: Abdomen Ultrasound 11/18/19 15:07 IMPRESSION: 1. Examination is limited by body habitus and bowel gas. No discrete gallstones identified. There may be a small volume of sludge in the gallbladder. No gallbladder wall thickening. No pericholecystic fluid. No biliary ductal dilation. 2. Sonographic Hickey sign is not documented. By car supplier report, patient complains of midline abdominal pain radiating to back. 3. Hepatic steatosis. Chest X-Ray 11/20/19 00:00 IMPRESSION: NO ACUTE RADIOGRAPHIC FINDING IN THE CHEST. Assessment and Plan - Diagnosis (1) Anticoagulated Is this a current diagnosis for this admission?: Yes Plan: Because there is serosanguineous drainage in the IGNACIO drain collection vessel I instructed the patient not to resume her Eliquis until there is no blood in the drainage. (2) Atrial fibrillation Qualifiers: Atrial fibrillation type: longstanding persistent Qualified Code(s): I48.11 - Longstanding persistent atrial fibrillation Is this a current diagnosis for this admission?: Yes Plan: Continue previous regimen of cardiac medications (3) Oral candidiasis Is this a current diagnosis for this admission?: Yes Plan: The tongue does have some discoloration/coating. It is not classic white lesions however with her history and the antibiotics for the cholecystitis I will send a prescription for nystatin liquid for the patient to her pharmacy. - Plan Summary Summary: 11/20/2019 Patient was not able to get on the surgical schedule today therefore her cholecystectomy is scheduled for tomorrow Temperature 98.4 pulse 75 blood pressure 115/59, 100% saturation on either room air BiPAP Patient's Eliquis has been held for 2 days now. Patient is currently on Unasyn We will resume Eliquis following surgery when patient is stable. Continue IV antibiotics for both her bronchitis as well as her gallbladder Patient appears medically stable, get 2 view chest x-ray today however for baseline as well as preop 11/21/2019 Vital signs are stable with O2 sat between 91 and 100% on room air. Probably be higher patient was more ambulatory Chest x-ray from yesterday shows no acute cardiopulmonary disease. Patient is medically stable and we will sign off. If patient has any problems postop please reconsult us. Patient already has a follow-up appointment with her casino manager in [place] for November 27. 11/22/2019- Patient instructed to resume Eliquis once there is no blood in the drain vessel. Nystatin solution prescription sent to her pharmacy for use with oral candidiasis. - Time Time Spent with patient: Less than 15 minutes Medications reviewed and adjusted accordingly: Yes Anticipated discharge: Home
--- NOTE | 2019-11-22 11:04 | PDOC DISCHARGE SUMMARY ---
General - Admit/Disc Date/PCP Admission Date/Primary Care Provider: 11/18/19 19:43 PRANAV HENDRICKS MD Discharge Date: 11/22/19 - Discharge Diagnosis Final Diagnosis: Acute calculus cholecystitis 2 atrial fibrillation - Assessment Summary: 11/20/2019 Patient was not able to get on the surgical schedule today therefore her cholecystectomy is scheduled for tomorrow Temperature 98.4 pulse 75 blood pressure 115/59, 100% saturation on either room air BiPAP Patient's Eliquis has been held for 2 days now. Patient is currently on Unasyn We will resume Eliquis following surgery when patient is stable. Continue IV antibiotics for both her bronchitis as well as her gallbladder Patient appears medically stable, get 2 view chest x-ray today however for baseline as well as preop 11/21/2019 Vital signs are stable with O2 sat between 91 and 100% on room air. Probably be higher patient was more ambulatory Chest x-ray from yesterday shows no acute cardiopulmonary disease. Patient is medically stable and we will sign off. If patient has any problems postop please reconsult us. 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 11/22/2019- Patient instructed to resume Eliquis once there is no blood in the drain vessel. Nystatin solution prescription sent to her pharmacy for use with oral candidiasis. - Additional Information Resuscitation Status: Full Code Referrals: [facility] [Provider Group] - 11/28/19 1:15 pm Prescriptions: Nystatin [Mycostatin 117693 Unit/1 ml Susp 60 ml Btl] 5 ml PO MEALSHS #120 ml Home Medications: Atorvastatin Calcium [Lipitor 40 mg Tablet] 40 mg PO QHS 01/05/19 Calcium/Magnesium/Zinc [Vespnog-Uqhdgwguo-Uhbs Tablet] 2 each PO QHS 01/05/19 Cholecalciferol (Vitamin D3) [Vitamin D3 5000 unit Capsule] 5,000 unit PO QHS 01/05/19 Escitalopram Oxalate [Lexapro 10 mg Tablet] 10 mg PO QHS 01/05/19 Flecainide Acetate [Tambocor 100 mg Tablet] 50 mg PO BID 01/05/19 Metoprolol Succinate [Toprol Xl 25 mg Tab.sr] 25 mg PO DAILY 01/05/19 Omeprazole 20 mg PO DAILY 01/05/19 Albuterol Sulfate [Proventil Hfa] 2 puff IH Q6HP PRN 11/19/19 Amlodipine Besylate [Norvasc 10 mg Tablet] 10 mg PO DAILY 11/19/19 Furosemide [Lasix 20 mg Tablet] 10 mg PO DAILY 11/19/19 Levalbuterol HCl [Xopenex Neb 0.63 mg/3 ml Ampul] 0.63 mg NEB RTQ6HP PRN 11/19/19 Nystatin [Mycostatin 185822 Unit/1 ml Susp 60 ml Btl] 5 ml PO MEALSHS #120 ml 11/22/19 History of Present Illiness History of Present Illness: PRISCA ABREU I is a 64 year old female admitted for right upper quadrant pains and ultrasound showed gallstones. Patient on Xarelto on admission and this was stopped since admission for laparoscopic cholecystectomy. Hospital Course Hospital Course: Her pains get gradually improved and subsequently underwent lap brittany on 11/21/2019 by . Patient is doing very well the next day 11/22/19 and discharged with her drain intact which will be removed by Dr. Rivera in the clinic in a week. Physical Exam Vital Signs: Temp Pulse Resp BP Pulse Ox 97.7 F 57 L 20 133/65 H 100 11/22/19 07:42 11/22/19 07:42 11/22/19 07:42 11/22/19 07:42 11/22/19 07:42 Intake & Output 11/21/19 11/22/19 11/23/19 06:59 06:59 06:59 Intake Total 2800 7403 Output Total 2330 Balance 2800 5073 Weight 120.2 kg 122.1 kg Exam: Tenderness in the right upper quadrant Results Laboratory Results: WBC 12.2 10^3/uL (4.0-10.5) H 11/18/19 15:15 RBC 4.46 10^6/uL (3.72-5.28) 11/18/19 15:15 Hgb 13.7 g/dL (12.0-15.5) 11/18/19 15:15 Hct 41.5 % (36.0-47.0) 11/18/19 15:15 MCV 93 fl (80-97) 11/18/19 15:15 MCH 30.7 pg (27.0-33.4) 11/18/19 15:15 MCHC 32.9 g/dL (32.0-36.0) 11/18/19 15:15 RDW 14.0 % (11.5-14.0) 11/18/19 15:15 Plt Count 251 10^3/uL (150-450) 11/18/19 15:15 Lymph % (Auto) 16.9 % (13-45) 11/18/19 15:15 Swisher % (Auto) 5.3 % (3-13) 11/18/19 15:15 Eos % (Auto) 1.6 % (0-6) 11/18/19 15:15 Baso % (Auto) 0.6 % (0-2) 11/18/19 15:15 Absolute Neuts (auto) 9.2 10^3/uL (1.7-8.2) H 11/18/19 15:15 Absolute Lymphs (auto) 2.1 10^3/uL (0.5-4.7) 11/18/19 15:15 Absolute Monos (auto) 0.6 10^3/uL (0.1-1.4) 11/18/19 15:15 Absolute Eos (auto) 0.2 10^3/uL (0.0-0.6) 11/18/19 15:15 Absolute Basos (auto) 0.1 10^3/uL (0.0-0.2) 11/18/19 15:15 Seg Neutrophils % 75.6 % (42-78) 11/18/19 15:15 Sodium 138.8 mmol/L (137-145) 11/22/19 07:23 Potassium 4.4 mmol/L (3.6-5.0) 11/22/19 07:23 Chloride 101 mmol/L (98-107) 11/22/19 07:23 Carbon Dioxide 31 mmol/L (22-30) H 11/22/19 07:23 Anion Gap 7 (5-19) 11/22/19 07:23 BUN 7 mg/dL (7-20) 11/22/19 07:23 Creatinine 0.90 mg/dL (0.52-1.25) 11/22/19 07:23 Est GFR ( Amer) > 60 (>60) 11/22/19 07:23 Est GFR (MDRD) Non-Af > 60 (>60) 11/22/19 07:23 Glucose 123 mg/dL (75-110) H 11/22/19 07:23 Calcium 9.1 mg/dL (8.4-10.2) 11/22/19 07:23 Total Bilirubin 0.3 mg/dL (0.2-1.3) 11/22/19 07:23 Direct Bilirubin 0.2 mg/dL (0.0-0.4) 11/22/19 07:23 Neonat Total Bilirubin Not Reportable 11/22/19 07:23 Neonat Direct Bilirubin Not Reportable 11/22/19 07:23 Neonat Indirect Bili Not Reportable 11/22/19 07:23 AST 50 U/L (14-36) H 11/22/19 07:23 ALT 44 U/L (<35) 11/22/19 07:23 Alkaline Phosphatase 107 U/L (38-126) 11/22/19 07:23 Troponin I < 0.012 ng/mL 11/18/19 15:15 Total Protein 6.4 g/dL (6.3-8.2) 11/22/19 07:23 Albumin 3.4 g/dL (3.5-5.0) L 11/22/19 07:23 Lipase 91.4 U/L (23-300) 11/18/19 15:15 Urine Color YELLOW 11/18/19 15:55 Urine Appearance CLEAR 11/18/19 15:55 Urine pH 7.0 (5.0-9.0) 11/18/19 15:55 Ur Specific [place] 1.009 11/18/19 15:55 Urine Protein NEGATIVE mg/dL (NEGATIVE) 11/18/19 15:55 Urine Glucose (UA) NEGATIVE mg/dL (NEGATIVE) 11/18/19 15:55 Urine Ketones NEGATIVE mg/dL (NEGATIVE) 11/18/19 15:55 Urine Blood NEGATIVE (NEGATIVE) 11/18/19 15:55 Urine Nitrite NEGATIVE (NEGATIVE) 11/18/19 15:55 Urine Bilirubin NEGATIVE (NEGATIVE) 11/18/19 15:55 Urine Urobilinogen NEGATIVE mg/dL (<2.0) 11/18/19 15:55 Ur Leukocyte Esterase NEGATIVE (NEGATIVE) 11/18/19 15:55 Urine WBC (Auto) 0 /HPF 11/18/19 15:55 Urine RBC (Auto) 0 /HPF 11/18/19 15:55 Urine Bacteria (Auto) TRACE /HPF 11/18/19 15:55 Squamous Epi Cells Auto 1 /HPF 11/18/19 15:55 Urine Mucus (Auto) RARE /LPF 11/18/19 15:55 Urine Ascorbic Acid NEGATIVE (NEGATIVE) 11/18/19 15:55 Blood Type A POSITIVE 11/20/19 08:35 Antibody Screen NEGATIVE 11/20/19 08:35 11/18/19 15:15 Troponin I < 0.012 Impressions: Abdomen Ultrasound 11/18/19 15:07 IMPRESSION: 1. Examination is limited by body habitus and bowel gas. No discrete gallstones identified. There may be a small volume of sludge in the gallbladder. No gallbladder wall thickening. No pericholecystic fluid. No bi liary ductal dilation. 2. Sonographic Hickey sign is not documented. By production support analyst report, patient complains of midline abdominal pain radiating to back. 3. Hepatic steatosis. Chest X-Ray 11/20/19 00:00 IMPRESSION: NO ACUTE RADIOGRAPHIC FINDING IN THE CHEST.
[2019-11-22 11:17] VITALS: BP 105/47
== END 2019-11-22 11:35 | disposition home or self-care (01) | DRG 418 ==
LOC: ER 14:15 → EH 19:43 → 4S 20:51
PROVIDERS: ADMIT Surgery; ATTEND Surgery
PROC: 5A09357 Assistance with Respiratory Ventilation, Less than 24 Consecutive Hours, Continuous Positive Airway Pressure (ICD-10-PCS; 2019-11-18)
PROC: 0FT44ZZ Resection of Gallbladder, Percutaneous Endoscopic Approach (ICD-10-PCS; principal; 2019-11-21 11:15)
DX: K81.0 Acute cholecystitis (principal); J44.0 Chronic obstructive pulmonary disease with (acute) lower respiratory infection; Z68.41 Body mass index [BMI] 40.0-44.9, adult; J44.1 Chronic obstructive pulmonary disease with (acute) exacerbation; I48.11 Longstanding persistent atrial fibrillation; B37.0 Candidal stomatitis; K81.1 Chronic cholecystitis; Z79.01 Long term (current) use of anticoagulants; G47.33 Obstructive sleep apnea (adult) (pediatric); E66.01 Morbid (severe) obesity due to excess calories; E78.5 Hyperlipidemia, unspecified; I10 Essential (primary) hypertension; K21.9 Gastro-esophageal reflux disease without esophagitis; F17.210 Nicotine dependence, cigarettes, uncomplicated; Z83.6 Family history of other diseases of the respiratory system; Z79.52 Long term (current) use of systemic steroids
CPT/HCPCS: 36415; 71046; 76705; 790; 80053; 81001; 83690; 84484; 85025; 86850; 86900; 86901; 88304; 93005; 93010; 93306; 94660; 94667; 94668; 94799; 96361; 96365; 96374; 96375; 99285; 99406; J0131; J0295; J0330; J1100; J1170; J1885; J2250; J2405; J2550; J2704; J2710; J3010; J3490; J7030; J7050; J7120

== ENCOUNTER → 2019-11-27 | Outpatient (CLI) | payer OTHER ==
[2019-11-27 12:16] LABS: ABSOLUTE BASOPHILS # (AUTO) 0.1 10^3/uL (0.0-0.2); ABSOLUTE EOSINOPHILS # (AUTO) 0.6 10^3/uL (0.0-0.6); ABSOLUTE LYMPHOCYTES (AUTO) 2.5 10^3/uL (0.5-4.7); ABSOLUTE MONOCYTES (AUTO) 0.8 10^3/uL (0.1-1.4); ABSOLUTE NEUT (AUTO) 7.1 10^3/uL (1.7-8.2); BASOPHILS % (AUTO) 1.1 % (0-2); EOSINOPHILS % (AUTO) 5.1 % (0-6); LYMPHOCYTES % (AUTO) 22.8 % (13-45); MEAN CORPUSCULAR HEMOGLOBIN 30.9 pg (27.0-33.4); MEAN CORPUSCULAR HGB CONC 33.3 g/dL (32.0-36.0); MEAN CORPUSCULAR VOLUME 93 fl (80-97); PLATELET COUNT 277 10^3/uL (150-450); RED CELL DISTRIBUTION WIDTH 14.2 % (11.5-14.0); TOTAL CELLS COUNTED % (AUTO) 100 %; WHITE BLOOD COUNT 11.1 10^3/uL (4.0-10.5)
[2019-11-27 12:53] LABS: ALBUMIN 3.7 g/dL (3.5-5.0); ALKALINE PHOSPHATASE 135 U/L (38-126); AMYLASE 32 U/L (30-110); ANION GAP 7 (5-19); ASPARTATE AMINO TRANSFERASE 24 U/L (14-36); BILIRUBIN,DIRECT 0.3 mg/dL (0.0-0.4); BILIRUBIN,TOTAL 0.6 mg/dL (0.2-1.3); BLOOD UREA NITROGEN 8 mg/dL (7-20); CALCIUM 9.2 mg/dL (8.4-10.2); CARBON DIOXIDE 28 mmol/L (22-30); CHLORIDE 105 mmol/L (98-107); GLUCOSE 93 mg/dL (75-110); POTASSIUM 4.5 mmol/L (3.6-5.0); TOTAL PROTEIN 6.6 g/dL (6.3-8.2)
--- NOTE | 2019-11-27 17:39 | RADIOLOGY REPORT (SQ) ---
EXAM DESCRIPTION: ACUTE ABDOMEN SERIES COMPLETED DATE/TIME: 11/27/2019 12:09 pm REASON FOR STUDY: UPPER ABDOMINAL PAIN, UNSPECIFIED R10.10 UPPER ABDOMINAL PAIN, UNSPECIFIED Z90.49 ACQUIRED ABSENCE OF OTHER SPECIFIED PARTS OF DIGESTIV COMPARISON: None. NUMBER OF VIEWS: Three views. TECHNIQUE: Frontal chest, supine abdomen and upright/decubitus abdomen radiographic images acquired. LIMITATIONS: None. FINDINGS: CHEST: Lungs clear of infiltrates. FREE AIR: None. No abnormal gas collections. BOWEL GAS PATTERN: Nonobstructive pattern. No dilated loops or air fluid levels. CALCIFICATIONS: No suspicious calcifications. HARDWARE: Drainage tube in the right upper quadrant. Surgical clips. SOFT TISSUES: No gross mass or suggestion of organomegaly. BONES: No acute fracture. No worrisome bone lesions. OTHER: No other significant finding. IMPRESSION: NO RADIOGRAPHIC EVIDENCE FOR ACUTE ABDOMINAL DISEASE. TECHNICAL DOCUMENTATION: JOB ID: [id number] [employer]- All Rights Reserved Reading location - IP/workstation name: [email or web address]
== END ==
LOC: CCC 11:21
DX: R10.10 Upper abdominal pain, unspecified (principal); G89.18 Other acute postprocedural pain; Z90.49 Acquired absence of other specified parts of digestive tract
CPT/HCPCS: 36415; 74022; 80048; 80076; 82150; 83690; 85025

== ENCOUNTER → 2020-05-30 | Outpatient (CLI) | payer OTHER ==
[2020-05-30 11:09] LABS: FOLATE 8.1 ng/mL (>2.76)
== END ==
LOC: CCC 08:40
PROVIDERS: ATTEND Internal Medicine
DX: G90.09 Other idiopathic peripheral autonomic neuropathy (principal)
CPT/HCPCS: 36415; 82306; 82607; 82746; 83036

== ENCOUNTER → 2020-09-03 | Outpatient (CLI) | payer OTHER ==
[2020-09-03 11:10] LABS: ANION GAP 9 (5-19); BLOOD UREA NITROGEN 9 mg/dL (7-20); CARBON DIOXIDE 27 mmol/L (22-30); CHLORIDE 105 mmol/L (98-107); CHOLESTEROL 166.55 mg/dL (0-200); GLUCOSE 102 mg/dL (75-110); POTASSIUM 4.5 mmol/L (3.6-5.0); TRIGLYCERIDES 158 mg/dL (<150)
[2020-09-03 11:21] LABS: DIRECT LDL 104 mg/dL (<100)
[2020-09-03 11:26] LABS: VLDL CHOLESTEROL 31.6 mg/dL (10-31)
--- NOTE | 2020-09-03 12:21 | RADIOLOGY REPORT (SQ) ---
EXAM DESCRIPTION: CHEST PA/LATERAL IMAGES COMPLETED DATE/TIME: 09/03/2020 10:41 am REASON FOR STUDY: SHORTNESS OF BREATH COMPARISON: 11/20/2019 EXAM PARAMETERS: NUMBER OF VIEWS: two views TECHNIQUE: Digital Frontal and Lateral radiographic views of the chest acquired. RADIATION DOSE: NA LIMITATIONS: none FINDINGS: LUNGS AND PLEURA: Mild chronic interstitial changes. No acute infiltrate or effusion. No mass. MEDIASTINUM AND HILAR STRUCTURES: No masses or contour abnormalities. HEART AND VASCULAR STRUCTURES: Heart normal size. No evidence for failure. BONES: No acute findings. HARDWARE: None in the chest. OTHER: No other significant finding. IMPRESSION: Chronic lung changes with no acute cardiopulmonary findings. TECHNICAL DOCUMENTATION: JOB ID: [id number] 2010 [employer]- All Rights Reserved Reading location - IP/workstation name: [email or web address]
== END ==
LOC: OD 09:52
PROVIDERS: ATTEND Internal Medicine
DX: I10 Essential (primary) hypertension (principal); R73.03 Prediabetes; R06.02 Shortness of breath
CPT/HCPCS: 36415; 71046; 80048; 80061; 83036; 83880; 84443

== ENCOUNTER → 2020-11-28 | Outpatient (CLI) | payer OTHER ==
--- NOTE | 2020-11-28 11:00 | WOMENS IMAGING REPORT ---
EXAM DESCRIPTION: PINK MARBELLA BILATERAL SCREEN IMAGES COMPLETED DATE/TIME: 11/28/2020 9:09 am REASON FOR STUDY: ROUTINE SCREENING MAMMOGRAM Z12.31 Z12.31 ENCNTR SCREEN MAMMOGRAM FOR MALIGNANT N EOPLASM OF YURIY COMPARISON: 2015. EXAM PARAMETERS: Standard craniocaudal and mediolateral oblique views of each breast recorded using digital acquisition. Read with the assistance of CAD. [employer] Version 9.2 LIMITATIONS: None. FINDINGS: No suspicious masses, suspicious calcifications or architectural distortion. No areas of c oncern. IMPRESSION: NEGATIVE MAMMOGRAM. BIRADS 1 BREAST DENSITY: b. There are scattered areas of fibroglandular density. BIRAD: ASSESSMENT: 1 NEGATIVE RECOMMENDATION: ROUTINE SCREENING COMMENT: The patient has been notified of the results by letter per [place] requirements. Additional no tification policies are in place for contacting patient with suspicious or incomplete findings. Quality ID #[id number]: The [employer] recommends an annual screening mammogram for women aged 40 years or over. This facility utilizes a reminder system to ensure that all patients receive reminder letters, and/or direct phone calls for appointments. This includes reminders for routine scr eening mammograms, diagnostic mammograms, or other Breast Imaging Interventions when appropriate. Th is patient will be placed in the appropriate reminder system. TECHNICAL DOCUMENTATION: FINDING NUMBER: (1) ASSESSMENT: (1) JOB ID: [id number] 2010 [employer]- All Rights Reserved Reading location - IP/workstation name: [email or web address]
== END ==
LOC: WI 08:48
PROVIDERS: ATTEND Internal Medicine
DX: Z12.31 Encounter for screening mammogram for malignant neoplasm of breast (principal)
CPT/HCPCS: 77067